=== PATIENT | male | born 1965 | race Caucasian/White ===

== ENCOUNTER 2023-05-13 05:50 | Inpatient (IN) | payer MEDICAID, SELFPAY ==
[2023-05-13] VITALS (10 sets, daily range): BP systolic 137–173; BP diastolic 79–94; PULSE 66–99; RESP 16–20; TEMP 36.6–37.9; O2SAT 97–99; BMI 25.9; BMI 25.3
--- NOTE | ~2023-05-13 | CT_ITS ---
EXAMINATION: CT ABDOMEN AND PELVIS WITH CONTRAST CLINICAL INFORMATION: 57-year-old male with severe pain. Previous right inguinal hernia repair. COMPARISON: None available. TECHNIQUE: Multidetector volumetric images were obtained from the superior aspect of the liver through the pubic symphysis following administration 85 mL of Omnipaque 350 intravenous contrast. Sagittal and coronal reformatted images were obtained on the technologist's workstation. Oral contrast: No This CT examination was performed using dose optimization techniques as appropriate, variously including the following: *Automated exposure control *Adjustment of mA and/or kV according to patient size (this includes techniques or standardized protocols for targeted exams where dose is matched to indication/reason for exam; i.e. extremities or head) *Use of iterative reconstruction technique DLP: 362 mGy-cm FINDINGS: LUNG BASES: The visualized lung bases are unremarkable. LIVER, GALLBLADDER, AND BILIARY TREE: The liver is normal in size, shape, and attenuation. No focal hepatic lesion or biliary ductal dilatation is present. The gallbladder is unremarkable with no evidence of radiopaque gallstones, gallbladder wall thickening, or obvious pericholecystic inflammatory changes. PANCREAS: Unremarkable. SPLEEN: Unremarkable. ADRENAL GLANDS: Unremarkable. KIDNEYS AND URETERS: The kidneys are normal in size, shape, and attenuation. No hydronephrosis, hydroureter, or calculi seen. No perinephric stranding. BLADDER: There is mass effect on the urinary bladder fundus large abscess. GASTROINTESTINAL TRACT: There is large abscess extending from the perforated diverticulum in sigmoid colon with mass effect on the urinary bladder fundus. The abscess measured 5.0 x 4.9 x 4.9 cm. There is extensive diverticulosis and sigmoid colon diverticulitis with wall thickening. In addition to these there are changes of small bowel disease extending from the duodenum to jejunum with dilatation of the lumen and wall thickening. The stomach is unremarkable. Appendix is not identified ABDOMINAL WALL: Patient is status post anterior abdominal wall hernia repair with mesh markers there is small fat-containing umbilical hernia. LYMPH NODES: Normal. VASCULAR: Unremarkable. PELVIC VISCERA: Prostate is enlarged, heterogeneous with dystrophic calcifications. OSSEOUS STRUCTURES: There are multilevel degenerative changes more prominent at the level of L4-L5. CT/CT abdomen pelvis w IV con IMPRESSION: 1. Sigmoid colon diverticulitis with large abscess extending from the perforated diverticulum in the sigmoid colon with mass effect on the urinary bladder fundus. 2. Small bowel disease. Fleischner guidelines were followed.
--- NOTE | ~2023-05-13 | CT_ITS ---
Patient presents to interventional radiology for percutaneous drainage of a diverticular abscess.. COMPARISON: CT abdomen and pelvis 05/13/2023 (earlier same day). PROCEDURES: 1. Limited preprocedure CT of the pelvis. Permanent images saved in PACS. 2. CT guided drainage of the diverticular abscess 3. Limited post procedure CT of the pelvis. Permanent images saved in PACS. CLINICIANS: Lucio Pineda PA-C Preprocedural imaging reviewed with Dr. James MEDICATIONS: -Versed 2 mg, Fentanyl 100 mcg, and lidocaine 1% 10 mL SQ -Antibiotics: None -For additional details, please see nursing flowsheet. COMPLICATIONS: None ESTIMATED BLOOD LOSS: < 5 ml CONTRAST: None SPECIMENS: A sample sent for culture MODERATE SEDATION TIME: 21 min PROCEDURE NOTE: The procedure, risks, benefits, and alternatives were carefully explained to the patient and written informed consent was obtained. The patient was placed supine on the CT table. A timeout was performed. A limited CT of the pelvis was performed to localize diverticular abscess and choose appropriate needle entry and trajectory. The patient was prepped and draped in usual sterile fashion. The skin and soft tissues were anesthetized with lidocaine. Under CT guidance, 5 Tamazight Yueh catheter was advanced into the midline diverticular abscess. Thick purulent pus was immediately aspirated. A 0.038 Amplatz wire was inserted through the catheter and coiled into the abscess cavity. The catheter was removed, and the tract was serially dilated. Over the wire, a 10 Tamazight all-purpose drainage catheter was advanced and coiled into the abscess cavity. The wire was removed. A total of 50 mL of thick purulent fluid was removed. A limited post procedure scan of pelvis performed, which demonstrated near decompression of the abscess cavity. The drain secured to the skin with a 2-0 nylon suture and connected to a MICHAEL bulb. A specimen was sent for culture. A dry dressing was applied to the drainage site. The patient was stable after the procedure and was transferred to the post anesthesia care unit. No immediate postprocedural complications. The procedure was done under moderate sedation with a dedicated nurse for monitoring of vital signs. CT/CT guided drainage IMPRESSION: Successful CT-guided drainage of diverticular abscess, with drain placement. This procedure was performed by Lucio Pineda PA-C and supervised by Dr. James.
[2023-05-13 06:33] LABS: Basophils Absolute Auto 0.1 X10*3/uL (0.0-0.2); Basophils Percent Auto 0.6 % (0-2); Eosinophils Absolute Auto 0.3 X10*3/uL (0.0-0.4); Eosinophils Percent Auto 1.6 % (0-4); Hematocrit 42.1 % (42.0-52.0); Hemoglobin 14.2 g/dl (14.0-18.0); Imm Gran Abs Auto 0.08 X10*3/uL (0.00-0.03); Imm Gran Pct Auto 0.5 % (0.0-0.4); Lymphocytes Absolute Auto 1.6 X10*3/uL (1.2-4.9); Lymphocytes Percent Auto 10.4 % (20-40); MANUAL DIFF FLAG NO; Mean Corpuscular HGB Conc 33.7 g/dl (31.0-36.0); Mean Platelet Volume 8.4 fL (9.4-12.4); Monocytes Absolute Auto 1.4 X10*3/uL (0.1-1.2); Monocytes Percent Auto 9.3 % (2-11); Neutrophils Percent Auto 77.6 % (45-73); Platelet Count 425 X10*3/uL (160-400); Red Blood Count 4.73 X10*6/uL (4.60-5.80); Red Cell Distribution Width 13.5 % (11.0-16.0); White Blood Count 15.5 X10*3/uL (4.8-10.8)
[2023-05-13 06:47] LABS: Alanine Aminotransferase 12 U/L (0-40); Alkaline Phosphatase 116 U/L (39-117); Anion Gap 14 (12-20); Aspartate Amino Transferase 18 U/L (5-37); Bilirubin Total 0.4 mg/dL (0.0-1.0); Blood Urea Nitrogen 10 mg/dL (9-16); Carbon Dioxide 24 mmol/L (22-29); Chloride 104 mmol/L (96-108); Creatinine Clr Calc Pharmacy 97.9; Estimated Glomerular Filt Rate > 60; Glucose Random 114 mg/dL (60-115); Potassium 4.3 mmol/L (3.3-5.1); Sodium 138 mmol/L (135-145); Total Protein 7.5 g/dL (6.5-8.0)
--- NOTE | 2023-05-13 07:01 | PC.NURSE ---
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 Simpson a hot sensation in lower abdomen that felt like muscles tearing. Reports alvarez a double hernia repair with mesh 8 years ago . Reports difficulty voiding with blood in urine and loose stools.
[2023-05-13] MEDS: 0.9 % Sodium Chloride 1,000 ML 999 ML IV ×2 (07:21→08:51)
--- NOTE | 2023-05-13 07:21 | ED_ITS ---
HPI - Abdominal Pain General Chief Complaint: Abdominal Pain Stated Complaint: bowel pain Time Seen by Provider: 05/13/23 07:02 Source: patient Mode of arrival: ambulatory Limitations: no limitations History of Present Illness HPI narrative: 57 yo male with PMH bilateral inguinal hernia repair 8 years ago notes he was helping a friend lift a snowblower onto a ramp on Tuesday - it slipped he bore the brunt of the weight and felt a searing hot pain in the R herna site. Since then the pain has worsened. He had two days of hematuria that has improved. Has nausea and now has loose stools nonbloody. He cannot get comfortable. He came due to worsening pain MD elicited complaint: abdominal pain Pertinent past history: other (hernia repair) Onset (ago): day(s) (5) Pain Consistency: constant Location: RLQ and LLQ Severity: severe Quality: cramping Radiation: none Migration to: no migration Exacerbating factors: movement Relieving factors: nothing Context: other (after heavy lifting) Associated symptoms: nausea, diarrhea and hematuria Related Data Allergies Allergy/AdvReac Type Severity Reaction Status Date / Time codeine [CODEINE] Allergy Unknown NAUSEA & Unverified 01/10/20 15:07 VOMITING penicillin V Allergy Unknown Verified 12/23/15 00:00 Penicillins [PENICILLINS] Allergy Unknown HIVES Unverified 01/10/20 15:07 trazodone Allergy Unknown Verified 12/23/15 00:00 Codeine Sulfate Allergy Unknown Uncoded 12/23/15 00:00 Review of Systems Review of Systems Constitutional : No Weight loss, No Fever, No Chills ENT/Mouth : No sore throat, No Rhinorrhea Eyes: No Swelling, No Redness Cardiovascular : No Chest Pain, No SOB, NoEdema Respiratory : No Cough, No Sputum, No Wheezing Gastrointestinal : Positive Nausea, no Vomiting, positive Diarrhea, positive abdominal Pain, No Hematochezia, No Melena Genitourinary : pos Dysuria, No Urinary Frequency, No Hematuria, No Urgency Musculoskeletal : No joint pain, No Myalgias, No Joint Swelling Skin : No Skin Lesions, No rash Neuro : No Weakness, No Numbness, No Dizziness, No Headache Psych : No Anxiety/Panic, No Depression Heme/Lymph: No Bruising, No Lymphadenopathy Endocrine : No Polyuria, No Polydipsia All other systems reviewed and are negative. [facility] Past Medical History Attestation statement: The following information was validated with the patient. Onset Date is defined in the Problem List Problems that require an onset date and time if occurred within 24 hrs of arrival to the ED Aortic Dissection and Rupture; Neurologic impairment; Cardiopulmonary Arrest; Endotracheal Intubation; Insertion or Replacement of Mechanical Circulatory Assist Device Medical History (Updated 05/13/23 @ 08:39 by Dacia Peters DO) No pertinent past medical history Surgical History (Updated 05/13/23 @ 07:23 by Dacia Peters DO) H/O hernia repair Social History Social History Alcohol intake: current Alcohol intake frequency: 0-2 drinks per day Smoked in Last 30 Days: Yes Use of substances other than those prescribed or required for medical reasons: Yes Substance Use Type: Marijuana Advance Directives: No Advance Directives Information Provided: No Physical Exam ED Vital Signs: Vital Signs - 24 hr 05/13/23 05:58 05/13/23 07:00 05/13/23 07:24 Temperature 98.2 F Pulse Rate 86 99 Respiratory Rate 16 18 20 Blood Pressure 140/87 H 137/86 Pulse Oximetry 97 99 Oxygen Delivery Method Room Air Room Air 05/13/23 08:00 Temperature Pulse Rate 67 Respiratory Rate 18 Blood Pressure 173/87 H Pulse Oximetry 97 Oxygen Delivery Method Room Air BMI result Body Mass Index 25.9 Appearance: Alert. Oriented X3. No acute distress. Eyes: Pupils equal, round and reactive to light. ENT: Pharynx normal. Neck: Normal inspection. Neck supple. CVS: Normal heart rate and rhythm. Pulses normal. Respiratory: No respiratory distress. Breath sounds normal. Abdomen: Soft and moderate ttp in bilateral groins R>L no mass felt he has rebound on exam Skin: Skin warm and dry. Normal skin color. Normal skin turgor. Extremities: No lower extremity edema. No calf ttp Neuro: Oriented X 3. No motor deficit. No sensory deficit. Course Course Course Narrative: at this time infection suspected 825am - cultures, lactic acid, IV antibiotics ordered Reevaluation(s) Reevaluation #1: pain is improved with IV morphine Medical Decision Making Medical Decision Making MDM Narrative: 57 yo male with bilateral groin pain R> L with after heavy lifting known hernia repair - he has associated nausea diarrhea and resolved hematuria. At this time will need labs, IV morphine for pain, CT scan for hernia/hematoma/renal colic, diverticulitis, bladder injury. Differential Diagnosis Differential Diagnoses: The differential diagnosis associated with the presentation includes hematoma, mass, renal colic, diverticulitis, rupture, mesh tear Admission/Observation Consideration of admission/observation: Escalation of care including admission/observation considered will need admission for further management Consult Healthcare Provider Management of the patient was discussed with: Legal Support Assistant (Dr. Sherman notified 830am) Dr. Sherman to admit Lab Data [facility] Lab Attestation statement: I reviewed the patient's lab results. 05/13/23 06:29 05/13/23 06:29 Labs: Lab Results 05/13/23 Range/Units 06:29 WBC 15.5 H (4.8-10.8) X10*3/uL RBC 4.73 (4.60-5.80) X10*6/uL Hgb 14.2 (14.0-18.0) g/dl Hct 42.1 (42.0-52.0) % MCV 89.0 (80.0-98.0) fL MCH 30.0 (27.0-33.0) pg MCHC 33.7 (31.0-36.0) g/dl RDW 13.5 (11.0-16.0) % Plt Count 425 H (160-400) X10*3/uL MPV 8.4 L (9.4-12.4) fL Immature Gran % (Auto) 0.5 H (0.0-0.4) % Neut % (Auto) 77.6 H (45-73) % Lymph % (Auto) 10.4 L (20-40) % [place] % (Auto) 9.3 (2-11) % Eos % (Auto) 1.6 (0-4) % Baso % (Auto) 0.6 (0-2) % Lymph # (Auto) 1.6 (1.2-4.9) X10*3/uL [place] # (Auto) 1.4 H (0.1-1.2) X10*3/uL Eos # (Auto) 0.3 (0.0-0.4) X10*3/uL Baso # (Auto) 0.1 (0.0-0.2) X10*3/uL Abs Immat Gran (auto) 0.08 H (0.00-0.03) X10*3/uL Absolute Neuts (auto) 12.0 H (2.0-8.3) x10*3/uL Absolute Nucleated RBC 0.000 (0.0-0.012) X10*3/uL Nucleated RBC % (auto) 0.0 (0.0-0.2) /100WBC Sodium 138 (135-145) mmol/L Potassium 4.3 (3.3-5.1) mmol/L Chloride 104 (96-108) mmol/L Carbon Dioxide 24 (22-29) mmol/L Anion Gap 14 (12-20) BUN 10 (9-16) mg/dL Creatinine 0.76 (0.5-1.4) mg/dL Estim Creat Clear Calc 97.9 Estimated GFR > 60 Random Glucose 114 (60-115) mg/dL Calcium 10.0 (8.4-10.2) mg/dL Total Bilirubin 0.4 (0.0-1.0) mg/dL AST 18 (5-37) U/L ALT 12 (0-40) U/L Alkaline Phosphatase 116 (39-117) U/L Total Protein 7.5 (6.5-8.0) g/dL Albumin 4.0 (3.5-5.0) g/dL Independent Interpretation I performed an independent interpretation of an: CT Scan Radiology Impression Discussion of test interpretation with radiology: I have reviewed the radiologist's reading. Radiologist Impression: sigmoid colon urinary bladder - 5cm large abscess extensive diverticulitis ? SB is abnormal thickened at duodenum and jejunum junction perforation - contained Medications Administered Discontinued Medications Generic Name Dose Route Start Last Admin Trade Name Freq PRN Reason Stop Dose Admin Sodium Chloride 1,000 mls @ 999 mls/hr 05/13/23 07:15 05/13/23 08:46 Ns IV 05/13/23 08:15 Infused .Q1H1M YULISSA Infusion Iohexol 85 ml 05/13/23 07:44 05/13/23 07:45 Iohexol 350 Mg/Ml 100 Ml Infus..Btl IV 05/13/23 07:45 85 ml ONCE ONE Administration Morphine Sulfate 4 mg 05/13/23 07:09 05/13/23 07:24 Morphine Sulfate 4 Mg/Ml Cartridge IVPUSH 05/13/23 07:10 4 mg ONCE ONE Administration Protocol Ondansetron HCl 4 mg 05/13/23 07:09 05/13/23 07:24 Ondansetron Hcl 4 Mg/2 Ml Vial IVPUSH 05/13/23 07:10 4 mg ONCE ONE Administration Critical Care Time Critical Care Time Critical Care Time: Yes Total Critical Care Time: 60 Attestation: 2L of IVF, pain improved with IV morphine, surgical consultation I attest to this time spent taking care of the patient Discharge Plan Discharge Clinical Impression: Abdominal pain Qualifiers: Abdominal location: lower abdomen, unspecified Qualified Code(s): R10.30 - Lower abdominal pain, unspecified Diverticulitis of intestine with abscess Qualifiers: Diverticulitis site: large intestine Diverticulitis bleeding: without bleeding Qualified Code(s): K57.20 - Diverticulitis of large intestine with perforation and abscess without bleeding Elevated WBC count Qualifiers: Leukocytosis type: unspecified Qualified Code(s): D72.829 - Elevated white blood cell count, unspecified Patient Disposition: Admitted As Inpatient
[2023-05-13] MEDS: Morphine Sulfate 4 MG/ML CARTRIDGE IVPUSH (07:24)
[2023-05-13] MEDS: ondansetron HCL 4 MG/2 ML VIAL IVPUSH (07:24)
[2023-05-13] MEDS: iohexoL 350 MG/ML 100 ML INFUS..BTL 85 ML IV (07:45)
[2023-05-13] MEDS: metroNIDAZOLE/NS 500 MG/100 ML PIGGYBACK 100 MG IV ×2 (08:52→16:52)
[2023-05-13] MEDS: HYDROmorphone HCl 0.5 MG/0.5 ML SYRINGE IVPUSH (08:52)
[2023-05-13] MEDS: cefTRIAXone sodium 1 GM in 0.9 % Sodium Chloride 50 ML IV (08:52)
[2023-05-13 08:56] LABS: Appearance Urine Clear; Color Urine Yellow; Glucose Urine UA Negative (Negative); Leukocyte Esterase Urine Small (1+) (Negative); Nitrite Urine Negative (Negative); UMIC TRIGGER UACC YES; Urine Blood Negative (Negative); Urine Ketones 15 mg/dL (Negative); Urine Protein Negative (Neg-Trace)
--- NOTE | 2023-05-13 08:58 | P.HPGS_ITS ---
History of Present Illness History of Present Illness Date of Service: 05/13/23 <Hyun Naylor PA-C - Last Filed: 05/13/23 09:38> 05/13/23 <Victoriano Sherman MD - Last Filed: 05/13/23 10:06> Chief complaint: diverticular abscess <Hyun Naylor PA-C - Last Filed: 05/13/23 09:38> Narrative: Lucio Manzano is a 57 year old male with no significant PMH who was in his usual state of health until he developed severe lower abd pain on Tuesday following lifting a snowblower onto a ramp. The pain has gradually worsened and is associated with nausea without vomiting, diarrhea and hematuria which has resolved. The pain has been progressively worsening and he could not sleep last night and decided to come in for evaluation. He denies sick contacts. In ED, work up included CBC, BMP and LFTs which was significant for a leukocytosis of 15.[address] scan of abd/pelvis was performed which showed sigmoid colon d iverticulitis with large abscess extending from the perforated diverticulum in the sigmoid colon with mass effect on the urinary bladder fundus. General surgery was therefore consulted. He reports hx of b/l hernia repair. He had a colonoscopy in 2009 which showed mild diverticulosis and hemorrhoids. <Hyun Naylor PA-C - Last Filed: 05/13/23 09:38> Review of Systems Constitutional: Constitutional: Denies chills and Denies fever(s) <Hyun Naylor PA-C - Last Filed: 05/13/23 09:38> ENT: Denies dizziness <Hyun Naylor PA-C - Last Filed: 05/13/23 09:38> Cardiovascular: Cardiovascular: Denies chest pain and Denies dyspnea <Hyun Naylor PA-C - Last Filed: 05/13/23 09:38> Respiratory: Respiratory: Denies cough and Denies dyspnea <DAMON Loredo Last Filed: 05/13/23 09:38> Gastrointestinal: Gastrointestinal: Reports as per HPI and Denies hematochezia <DAMON Loredo Last Filed: 05/13/23 09:38> Genitourinary: Genitourinary: Reports as per HPI <Hyun Naylor PA-C Last Filed: 05/13/23 09:38> Integumentary/Breasts: Skin/Breast: Denies rash and Denies jaundice <Hyun Naylor PA-C Last Filed: 05/13/23 09:38> Neurologic: Denies dizziness <Hyun Naylor PA-C Last Filed: 05/13/23 09:38> PMFSH Past Medical History Medical History: Medical History (Updated 05/13/23 @ 08:39 by Dacia Peters DO) No pertinent past medical history <Hyun Naylor PA-C Last Filed: 05/13/23 09:38> Surgical History Surgical History: Surgical History (Updated 05/13/23 @ 07:23 by Dacia Peters DO) H/O hernia repair <DAMON Loredo Filed: 05/13/23 09:38> Social History Social History: Social History Alcohol intake: current Alcohol intake frequency: 0-2 drinks per day Smoked in Last 30 Days: Yes Use of substances other than those prescribed or required for medical reasons: Yes Substance Use Type: Marijuana Advance Directives: No Advance Directives Information Provided: No <Hyun Naylor PA-C Last Filed: 05/13/23 09:38> Meds Allergies/Adverse reactions: Allergies Allergy/AdvReac Type Severity Reaction Status Date / Time codeine [CODEINE] Allergy Unknown NAUSEA & Verified 05/13/23 09:27 VOMITING penicillin V Allergy Unknown Unknown Verified 05/13/23 09:16 Penicillins [PENICILLINS] Allergy Unknown HIVES Verified 05/13/23 09:27 trazodone Allergy Unknown Unknown Verified 05/13/23 09:16 Codeine Sulfate Allergy Unknown Unknown Uncoded 05/13/23 09:16 <Hyun Naylor PA-C Last Filed: 05/13/23 09:38> Active Medications: Current Medications Hydromorphone HCl (Hydromorphone Hcl 1 Mg/Ml Syringe) 0.5 mg IVPUSH Q4H PRN; Protocol PRN Reason: Pain, Severe (Pain Scale 7-10) Metronidazole (Flagyl) 500 mg in 100 mls @ 100 mls/hr IV ONCE ONE Stop: 05/13/23 09:25 Last Admin: 05/13/23 08:52 Dose: 100 mls/hr Sodium Chloride (Ns) 1,000 mls @ 999 mls/hr IV .Q1H1M YULISSA Stop: 05/13/23 09:30 Last Admin: 05/13/23 08:51 Dose: 999 mls/hr Metronidazole (Flagyl) 500 mg in 100 mls @ 100 mls/hr IV Q8H YULISSA Melatonin (Melatonin 3 Mg Tablet) 6 mg PO BEDTIME PRN PRN Reason: Insomnia Ondansetron HCl (Ondansetron Hcl 4 Mg/2 Ml Vial) 4 mg IVPUSH Q8H PRN PRN Reason: Nausea and Vomiting Oxycodone HCl (Oxycodone Hcl Immed Release 5 Mg Tablet) 5 mg PO Q6H PRN PRN Reason: Pain, Moderate(Pain Scale 4-6) Sodium Chloride (0.9 % Sodium Chloride Flush 3 Ml Syringe) 3 ml IVFLUSH QSHIFT YULISSA <DAMON Loredo Last Filed: 05/13/23 09:38> Physical Exam Vital Signs: Vital Signs: Last Vital Signs Temp 98.2 F 05/13/23 05:58 Pulse 67 05/13/23 08:00 Resp 18 05/13/23 08:00 BP 173/87 H 05/13/23 08:00 Pulse Ox 97 05/13/23 08:00 O2 Del Method Room Air 05/13/23 08:00 BMI result Body Mass Index 25.9 <DAMON Loredo Last Filed: 05/13/23 09:38> Const: General: comfortable, no acute distress and alert <DAMON Loredo Last Filed: 05/13/23 09:38> Nutritional Appearance: thin <DAMON Loredo Last Filed: 05/13/23 09:38> Orientation/consciousness: patient oriented x3 <DAMON Loredo Last Filed: 05/13/23 09:38> Resp: Effort & Inspection: normal respiratory effort <DAMON Loredo Last Filed: 05/13/23 09:38> GI: Inspection: No distended <DAMON Loredo Last Filed: 05/13/23 09:38> Palpation (GI): Soft to palpation, Tenderness to palpation present (GI) (moderately) suprapubicly (with rebound ), no guarding and not rigid <DAMON Nova Last Filed: 05/13/23 09:38> Percussion: Yes normal to percussion <DAMON Loredo Last Filed: 05/13/23 09:38> Skin: General skin exam: no rashes or lesions noted <DAMON Loredo Last Filed: 05/13/23 09:38> Neuro: General: patient oriented x3 and moves all extremities <DAMON Loredo Last Filed: 05/13/23 09:38> Results Results Labs: Short CBC 05/13/23 Range/Units 06:29 WBC 15.5 H (4.8-10.8) X10*3/uL Hgb 14.2 (14.0-18.0) g/dl Hct 42.1 (42.0-52.0) % Plt Count 425 H (160-400) X10*3/uL BMP 05/13/23 06:29 Sodium 138 Potassium 4.3 Chloride 104 Carbon Dioxide 24 BUN 10 Creatinine 0.76 Calcium 10.0 Liver Function 05/13/23 Range/Units 06:29 Total Bilirubin 0.4 (0.0-1.0) mg/dL AST 18 (5-37) U/L ALT 12 (0-40) U/L Alkaline Phosphatase 116 (39-117) U/L Albumin 4.0 (3.5-5.0) g/dL Urine 05/13/23 Range/Units 08:42 Urine Color Yellow Urine Appearance Clear Urine pH 7.0 (5.0-9.0) Ur Specific [place] 1.020 (1.005-1.025) Urine Protein Negative (Neg-Trace) mg/dL Urine Glucose (UA) Negative (Negative) mg/dL <DAMON Loredo Last Filed: 05/13/23 09:38> Abdomen CT scan report/results: report reviewed and image reviewed <Hyun Naylor PA-C - Last Filed: 05/13/23 09:38> Assessment and Plan (1) Diverticulitis of intestine with abscess: Qualifiers: Diverticulitis bleeding: without bleeding Diverticulitis site: large intestine Qualified Code(s): K57.20 - Diverticulitis of large intestine with perforation and abscess without bleeding <BETTINA Loredo - Last Filed: 05/13/23 09:38> Status: Acute <Hyun Naylor PA-C - Last Filed: 05/13/23 09:38> The patient describes lower abdominal pain for about 4 days Mildly tender to touch No guarding or rebound Looks well, not toxic looking CT scan reviewed - diverticular abscess in the pelvis For IR drainage Possible need for laparotomy, resection IV antibiotics Bowel rest for now Seen and examined independently <Victoriano Sherman MD - Last Filed: 05/13/23 10:06> 57 year old healthy male with almost 1 week of lower abdominal pain found to have leukocytosis and large diverticular abscess. He is overall well and non toxic appearing. Recommended nonoperative management and to proceed with IR drainage, IV abx, bowel rest. Discussed if abscess is not amenable to IR drainage or he worsens, would need to proceed with laparotomy, sigmoid resection, likely end colostomy. He is in agreement. All questions answered. <Hyun Naylor PA-C - Last Filed: 05/13/23 09:38> Quality Stroke Does the patient have a stroke diagnosis?: No <Hyun Naylor PA-C - Last Filed: 05/13/23 09:38> VTE Prior VTE?: No <Hyun Naylor PA-C - Last Filed: 05/13/23 09:38> VTE Risk Level:: Surgical - moderate <DAMON Loredo Last Filed: 05/13/23 09:38> VTE Device Contraindication: N/A - Device Ordered <DAMON Loredo Last Filed: 05/13/23 09:38> VTE Drug Contraindication: N/A - Med Ordered <Hyun Naylor PA-C - Last Filed: 05/13/23 09:38> Procedures Date of Service Date of Service: 05/13/23 <Hyun Naylor PA-C - Last Filed: 05/13/23 09:38> 05/13/23 <Victoriano Sherman MD - Last Filed: 05/13/23 10:06>
[2023-05-13 08:59] LABS: Lactic Acid 1.1 mmol/L (0.5-2.0)
[2023-05-13 09:01] LABS: Bacteria Urine None Seen (None Seen); Hyaline Casts Urine 0-2 /LPF (0-2); RBC Urine 0-2 /HPF (0-2); Squamous Epithelial Cell Urine 0-2 /HPF (0-2); UACC Culture Trigger YES
[2023-05-13 09:05] LABS: INTERNATIONAL NORM RATIO 0.9 (0.9-1.1); Prothrombin Time 11.3 SEC (11.1-13.3)
[2023-05-13] MEDS: Nicotine 21 MG PATCH.TD24 TRANSDERMA (09:14)
[2023-05-13] MEDS: oxyCODONE HCl Immed Release 5 MG TABLET PO ×2 (09:36→19:16)
[2023-05-13] MEDS: Lactated Ringers 1,000 ML 100 ML IVCONT ×2 (09:43→14:49)
[2023-05-13] MEDS: levoFLOXacin/D5W 500 MG/100 ML PIGGYBACK 100 MG IV (10:33)
--- NOTE | 2023-05-13 12:43 | PC.NURSE ---
Brought to OR by transport
--- NOTE | 2023-05-13 12:57 | PHA.MEDREC ---
Pharmacy Consult ? Medication Reconciliation Pharmacy has completed the medication reconciliation.
--- NOTE | 2023-05-13 13:49 | HO.RADPN ---
RADIOLOGY Narrative Narrative: Procedure Note: CT drainage of diverticular abscess 10 fr drain placed. 50 cc thick purulent fluid removed and sent for culture. No immediate complications. Lucio MYERS Interventional Radiology
[2023-05-13] MEDS: HYDROmorphone HCl 1 MG/ML SYRINGE 0.5 MG IVPUSH (14:57)
--- NOTE | 2023-05-13 17:36 | PM.EVENT ---
Event Note Date of Service: 05/13/23 Event Note: successful CT drainage of diverticular abscess done pt comfortable drain in place - seropurulent fluid abd soft he looks well IV abx doing well Time Spent With Patient Time: Total time managing care of this patient today ____ minutes.
[2023-05-13] MEDS: Acetaminophen 325 MG TABLET 650 MG PO (20:02)
[2023-05-14] MEDS: Lactated Ringers 1,000 ML 100 ML IVCONT ×2 (01:19→14:58)
[2023-05-14] MEDS: metroNIDAZOLE/NS 500 MG/100 ML PIGGYBACK 100 MG IV ×3 (01:21→17:19)
[2023-05-14 01:29] VITALS: RESP 18
[2023-05-14] MEDS: HYDROmorphone HCl 1 MG/ML SYRINGE 0.5 MG IVPUSH ×4 (01:29→17:19)
[2023-05-14 03:08] VITALS: BP 140/75; PULSE 61; RESP 16; TEMP 36.3; O2SAT 98
[2023-05-14 05:45] LABS: MANUAL DIFF FLAG NO
[2023-05-14 05:53] LABS: Basophils Absolute Auto 0.1 X10*3/uL (0.0-0.2); Basophils Percent Auto 0.7 % (0-2); Eosinophils Absolute Auto 0.4 X10*3/uL (0.0-0.4); Eosinophils Percent Auto 3.3 % (0-4); Hematocrit 39.5 % (42.0-52.0); Hemoglobin 13.4 g/dl (14.0-18.0); Imm Gran Abs Auto 0.04 X10*3/uL (0.00-0.03); Imm Gran Pct Auto 0.3 % (0.0-0.4); Lymphocytes Absolute Auto 1.3 X10*3/uL (1.2-4.9); Lymphocytes Percent Auto 10.3 % (20-40); Mean Corpuscular HGB Conc 33.9 g/dl (31.0-36.0); Mean Corpuscular Volume 88.6 fL (80.0-98.0); Mean Platelet Volume 8.7 fL (9.4-12.4); Monocytes Percent Auto 8.2 % (2-11); Neutrophils Absolute Auto 9.4 x10*3/uL (2.0-8.3); Neutrophils Percent Auto 77.2 % (45-73); Platelet Count 379 X10*3/uL (160-400); Red Blood Count 4.46 X10*6/uL (4.60-5.80); Red Cell Distribution Width 13.2 % (11.0-16.0); White Blood Count 12.2 X10*3/uL (4.8-10.8)
[2023-05-14 06:05] LABS: Anion Gap 15 (12-20); Blood Urea Nitrogen 6 mg/dL (9-16); Calcium 9.1 mg/dL (8.4-10.2); Carbon Dioxide 21 mmol/L (22-29); Chloride 105 mmol/L (96-108); Estimated Glomerular Filt Rate > 60; Glucose Random 87 mg/dL (60-115); Potassium 3.8 mmol/L (3.3-5.1); Sodium 137 mmol/L (135-145)
[2023-05-14 08:00] VITALS: BP 142/77; PULSE 71; RESP 17; TEMP 36.8; O2SAT 98
[2023-05-14] MEDS: 0.9 % Sodium Chloride Flush 3 ML SYRINGE IVFLUSH ×3 (08:43→19:54)
--- NOTE | 2023-05-14 09:17 | PM.PNGS ---
Subjective Subjective Date of Service: 05/14/23 Interval history: sore on drain site low grade temp last night drain- mostly thick blood now Physical Exam Vital Signs: Vital Signs: Last Vital Signs Temp 98.3 F 05/14/23 08:00 Pulse 71 05/14/23 08:00 Resp 17 05/14/23 08:00 BP 142/77 H 05/14/23 08:00 Pulse Ox 98 05/14/23 08:00 O2 Del Method Room Air 05/14/23 08:00 BMI result Body Mass Index 25.3 Const: General: no acute distress Resp: Effort & Inspection: normal respiratory effort Cardio: Rate: regular rate GI: Palpation (GI): Soft to palpation and Tenderness to palpation present (GI) (tender around drain, pelvic area) Objective Data Active Medications Acetaminophen (Acetaminophen 325 Mg Tablet) 650 mg PO Q6H PRN PRN Reason: Fever Last Admin: 05/13/23 20:02 Dose: 650 mg Documented By: JEREMY Hydromorphone HCl (Hydromorphone Hcl 1 Mg/Ml Syringe) 0.5 mg IVPUSH Q4H PRN; Protocol PRN Reason: Pain, Severe (Pain Scale 7-10) Last Admin: 05/14/23 08:37 Dose: 0.5 mg Documented By: CHASE Metronidazole (Flagyl) 500 mg in 100 mls @ 100 mls/hr IV Q8H [facility] Last Admin: 05/14/23 08:38 Dose: 100 mls/hr Documented By: CHASE Levofloxacin (Levaquin) 500 mg in 100 mls @ 100 mls/hr IV Q24H [facility] Last Infusion: 05/13/23 10:35 Dose: Infused Documented By: GLENNY Lactated Ringer's (Lr) 1,000 mls @ 100 mls/hr IVCONT .Q10H [facility] Last Admin: 05/14/23 01:19 Dose: 100 mls/hr Documented By: JEREMY Influenza Virus Vaccine (Flu Vacc [id number](6mos Up)/Pf 0.5 Ml Syringe) 0.5 ml IM .ONCE ONE Stop: 05/14/23 10:01 Melatonin (Melatonin 3 Mg Tablet) 6 mg PO BEDTIME PRN PRN Reason: Insomnia Ondansetron HCl (Ondansetron Hcl 4 Mg/2 Ml Vial) 4 mg IVPUSH Q8H PRN PRN Reason: Nausea and Vomiting Oxycodone HCl (Oxycodone Hcl Immed Release 5 Mg Tablet) 5 mg PO Q6H PRN PRN Reason: Pain, Moderate(Pain Scale 4-6) Last Admin: 05/13/23 19:16 Dose: 5 mg Documented By: JEREMY Sodium Chloride (0.9 % Sodium Chloride Flush 3 Ml Syringe) [facility] Last Admin: 05/14/23 08:43 Dose: 3 ml Documented By: CHASE Labs 05/14/23 05:23 05/14/23 05:23 Labs: Laboratory Results - last 24 hr 05/14/23 05:23 MCV 88.6 MCH 30.0 MCHC 33.9 RDW 13.2 Plt Count 379 MPV 8.7 L Immature Gran % (Auto) 0.3 Neut % (Auto) 77.2 H Lymph % (Auto) 10.3 L [place] % (Auto) 8.2 Eos % (Auto) 3.3 Baso % (Auto) 0.7 Lymph # (Auto) 1.3 [place] # (Auto) 1.0 Eos # (Auto) 0.4 Baso # (Auto) 0.1 Abs Immat Gran (auto) 0.04 H Absolute Neuts (auto) 9.4 H Absolute Nucleated RBC 0.000 Nucleated RBC % (auto) 0.0 Anion Gap 15 Estim Creat Clear Calc 124.0 Estimated GFR > 60 Random Glucose 87 Calcium 9.1 D Microbiology Microbiology Results: Microbiology 05/13/23 13:40 Gram Stain - Final Abscess Intra-abdominal Procedures Date of Service Date of Service: 05/14/23 Progress Note: A&P Assessment and plan (1) Diverticulitis of intestine with abscess: Status: Acute Assessment and Plan: S/P CT drain WBC down drain output now mostly thick blood IV abx clear liquids only explained to him he will eventually benefit from surgical resection depending on clinical course Time Spent With Patient Time: Total time managing care of this patient today ____ minutes. Quality Stroke Does the patient have a stroke diagnosis?: No VTE Prior VTE?: No VTE Risk Level:: Surgical - moderate VTE Device Contraindication: N/A - Device Ordered VTE Drug Contraindication: N/A - Med Ordered
[2023-05-14] MEDS: levoFLOXacin/D5W 500 MG/100 ML PIGGYBACK 100 MG IV (09:55)
[2023-05-14] MEDS: oxyCODONE HCl Immed Release 5 MG TABLET PO ×2 (09:55→19:52)
--- NOTE | 2023-05-14 10:11 | MHC.CM.PN ---
PATIENT IS FROM HOME W/ GIRLFRIEND. FUNCTIONALLY INDEPENDENT. NO MEDICAL EQUIPMENT OR SERVICES. DOES NOT HAVE A PCP. CM PROVIDED EDUCATION RE: HCP. PATIENT IS CONSIDERING COMPLETING ONE, BUT WOULD LIKE TO SPEAK WITH HIS GIRLFRIEND, CORINNE . DP: GOAL IS HOME SELF CARE. CORINNE TO TRANSPORT. CM WILL CONTINUE TO FOLLOW.
[2023-05-14] MEDS: Nicotine 7 MG PATCH.TD24 TRANSDERMA (12:05)
[2023-05-14 16:00] VITALS: BP 138/80; PULSE 69; RESP 18; TEMP 36.7; O2SAT 98
[2023-05-14 19:43] VITALS: BP 136/84; PULSE 67; RESP 19; TEMP 36.7; O2SAT 98
[2023-05-14] MEDS: Acetaminophen 325 MG TABLET 650 MG PO (19:52)
[2023-05-15] MEDS: Lactated Ringers 1,000 ML 100 ML IVCONT (01:04)
[2023-05-15] MEDS: metroNIDAZOLE/NS 500 MG/100 ML PIGGYBACK 100 MG IV ×3 (01:04→16:41)
[2023-05-15 03:09] VITALS: BP 131/79; PULSE 65; RESP 16; TEMP 36.5; O2SAT 96
[2023-05-15] MEDS: oxyCODONE HCl Immed Release 5 MG TABLET PO ×3 (06:41→19:31)
[2023-05-15 07:51] VITALS: BP 141/76; PULSE 68; RESP 16; TEMP 36.7; O2SAT 96
[2023-05-15] MEDS: Nicotine 7 MG PATCH.TD24 TRANSDERMA (08:06)
[2023-05-15] MEDS: 0.9 % Sodium Chloride Flush 3 ML SYRINGE IVFLUSH ×2 (08:07→16:45)
--- NOTE | 2023-05-15 09:53 | PM.PNGS ---
Subjective Subjective Date of Service: 05/15/23 Interval history: feels well a little sore on drain site hungry Physical Exam Vital Signs: Vital Signs: Last Vital Signs Temp 98.1 F 05/15/23 07:51 Pulse 68 05/15/23 07:51 Resp 16 05/15/23 07:51 BP 141/76 H 05/15/23 07:51 Pulse Ox 96 05/15/23 07:51 O2 Del Method Room Air 05/15/23 07:51 BMI result Body Mass Index 25.3 Const: General: comfortable and no acute distress Resp: Effort & Inspection: normal respiratory effort Cardio: Rate: regular rate GI: Other: MICHAEL - scanty old blood Palpation (GI): Soft to palpation, not firm, nontender and no guarding Objective Data Active Medications Acetaminophen (Acetaminophen 325 Mg Tablet) 650 mg PO Q6H PRN PRN Reason: Fever Last Admin: 05/14/23 19:52 Dose: 650 mg Documented By: JEREMY Hydromorphone HCl (Hydromorphone Hcl 1 Mg/Ml Syringe) 0.5 mg IVPUSH Q4H PRN; Protocol PRN Reason: Pain, Severe (Pain Scale 7-10) Last Admin: 05/14/23 17:19 Dose: 0.5 mg Documented By: CHASE Metronidazole (Flagyl) 500 mg in 100 mls @ 100 mls/hr IV Q8H [facility] Last Admin: 05/15/23 08:06 Dose: 100 mls/hr Documented By: CHASE Levofloxacin (Levaquin) 500 mg in 100 mls @ 100 mls/hr IV Q24H [facility] Last Infusion: 05/14/23 11:09 Dose: Infused Documented By: CHASE Melatonin (Melatonin 3 Mg Tablet) 6 mg PO BEDTIME PRN PRN Reason: Insomnia Nicotine (Nicotine 7 Mg Patch.Td24) 7 mg TRANSDERMA DAILY [facility] Last Admin: 05/15/23 08:06 Dose: 7 mg Documented By: CHASE Ondansetron HCl (Ondansetron Hcl 4 Mg/2 Ml Vial) 4 mg IVPUSH Q8H PRN PRN Reason: Nausea and Vomiting Oxycodone HCl (Oxycodone Hcl Immed Release 5 Mg Tablet) 5 mg PO Q6H PRN PRN Reason: Pain, Moderate(Pain Scale 4-6) Last Admin: 05/15/23 06:41 Dose: 5 mg Documented By: JEREMY Sodium Chloride (0.9 % Sodium Chloride Flush 3 Ml Syringe) 3 ml IVFLUSH [facility] Last Admin: 05/15/23 08:07 Dose: 3 ml Documented By: CHASE Labs 05/14/23 05:23 05/14/23 05:23 Microbiology Microbiology Results: Microbiology 05/13/23 13:40 Gram Stain - Final Abscess Intra-abdominal Routine Culture - Final Escherichia coli Anaerobic Culture - Preliminary Culture in progress. 05/13/23 Unknown Urine Culture - Final Urine clean catch - Urine saxena top 05/13/23 08:42 Blood Culture - Preliminary Blood - Venous No growth after 24 hours. 05/13/23 08:44 Blood Culture - Preliminary Blood - Venous No growth after 24 hours. Procedures Date of Service Date of Service: 05/15/23 Progress Note: A&P Assessment and plan (1) Diverticulitis of intestine with abscess: Status: Acute Assessment and Plan: CT drain in place looks well appears comfortable start clear liquids continue IV abx last colonoscopy on EHR was in 2009 - with Dr Taylor Time Spent With Patient Time: Total time managing care of this patient today ____ minutes. Quality Stroke Does the patient have a stroke diagnosis?: No VTE Prior VTE?: No VTE Risk Level:: Surgical - moderate VTE Device Contraindication: N/A - Device Ordered VTE Drug Contraindication: N/A - Med Ordered
[2023-05-15] MEDS: levoFLOXacin/D5W 500 MG/100 ML PIGGYBACK 100 MG IV (10:10)
[2023-05-15 15:42] VITALS: BP 148/76; PULSE 66; RESP 17; TEMP 36.8; O2SAT 98
[2023-05-15] MEDS: Dextrose 5 % and 0.9 % NaCl 1,000 ML 80 ML IVCONT (18:16)
[2023-05-15 19:21] VITALS: BP 158/77; PULSE 69; RESP 16; TEMP 37.1; O2SAT 98
[2023-05-16] MEDS: metroNIDAZOLE/NS 500 MG/100 ML PIGGYBACK 100 MG IV ×3 (01:07→17:34)
[2023-05-16] MEDS: oxyCODONE HCl Immed Release 5 MG TABLET PO ×4 (01:56→21:41)
[2023-05-16 03:37] VITALS: BP 135/67; PULSE 64; RESP 18; TEMP 37.1; O2SAT 96
[2023-05-16] MEDS: Dextrose 5 % and 0.9 % NaCl 1,000 ML 80 ML IVCONT (06:25)
--- NOTE | 2023-05-16 06:45 | PC.NURSE ---
MICHAEL DRAIN WITH 5ML BLOODY OUTPUT FROM 11PM-7AM SHIFT, DRESSING C-D-I, SPLINTING FOR COMFORT
[2023-05-16 07:50] VITALS: BP 139/73; PULSE 62; RESP 17; TEMP 36.3; O2SAT 98
[2023-05-16] MEDS: Nicotine 7 MG PATCH.TD24 TRANSDERMA (08:35)
[2023-05-16] MEDS: 0.9 % Sodium Chloride Flush 3 ML SYRINGE IVFLUSH (08:36)
[2023-05-16] MEDS: levoFLOXacin/D5W 500 MG/100 ML PIGGYBACK 100 MG IV (09:50)
--- NOTE | 2023-05-16 12:58 | PM.PNGS ---
Subjective Subjective Date of Service: 05/16/23 Interval history: feels well denies abdl pain slept well hungry Physical Exam Vital Signs: Vital Signs: Last Vital Signs Temp 97.3 F 05/16/23 07:50 Pulse 62 05/16/23 07:50 Resp 17 05/16/23 07:50 BP 139/73 05/16/23 07:50 Pulse Ox 98 05/16/23 07:50 O2 Del Method Room Air 05/16/23 07:50 BMI result Body Mass Index 25.3 Const: General: comfortable and no acute distress Resp: Effort & Inspection: normal respiratory effort Cardio: Rate: regular rate GI: Other: MICHAEL- old blood, no more pus Palpation (GI): Soft to palpation, not firm and no guarding Objective Data Active Medications Acetaminophen (Acetaminophen 325 Mg Tablet) 650 mg PO Q6H PRN PRN Reason: Fever Last Admin: 05/14/23 19:52 Dose: 650 mg Documented By: JEREMY Hydromorphone HCl (Hydromorphone Hcl 1 Mg/Ml Syringe) 0.5 mg IVPUSH Q4H PRN; Protocol PRN Reason: Pain, Severe (Pain Scale 7-10) Last Admin: 05/14/23 17:19 Dose: 0.5 mg Documented By: CHASE Metronidazole (Flagyl) 500 mg in 100 mls @ 100 mls/hr IV Q8H [facility] Last Infusion: 05/16/23 09:47 Dose: Infused Documented By: LESIA Levofloxacin (Levaquin) 500 mg in 100 mls @ 100 mls/hr IV Q24H [facility] Last Infusion: 05/16/23 11:04 Dose: Infused Documented By: LESIA Dextrose/Sodium Chloride (D5ns) 1,000 mls @ 80 mls/hr IVCONT .[id number] [facility] Last Admin: 05/16/23 06:25 Dose: 80 mls/hr Documented By: EVA Melatonin (Melatonin 3 Mg Tablet) 6 mg PO BEDTIME PRN PRN Reason: Insomnia Nicotine (Nicotine 7 Mg Patch.Td24) 7 mg TRANSDERMA DAILY [facility] Last Admin: 05/16/23 08:35 Dose: 7 mg Documented By: LESIA Ondansetron HCl (Ondansetron Hcl 4 Mg/2 Ml Vial) 4 mg IVPUSH Q8H PRN PRN Reason: Nausea and Vomiting Oxycodone HCl (Oxycodone Hcl Immed Release 5 Mg Tablet) 5 mg PO Q6H PRN PRN Reason: Pain, Moderate(Pain Scale 4-6) Last Admin: 05/16/23 08:35 Dose: 5 mg Documented By: LESIA Sodium Chloride (0.9 % Sodium Chloride Flush 3 Ml Syringe) [facility] Last Admin: 05/16/23 08:36 Dose: 3 ml Documented By: LESIA Labs 05/14/23 05:23 05/14/23 05:23 Microbiology Microbiology Results: Microbiology 05/13/23 08:42 Blood Culture - Preliminary Blood - Venous No growth after 48 hours. 05/13/23 08:44 Blood Culture - Preliminary Blood - Venous No growth after 48 hours. 05/13/23 13:40 Gram Stain - Final Abscess Intra-abdominal Routine Culture - Final Escherichia coli Anaerobic Culture - Preliminary Culture in progress. Procedures Date of Service Date of Service: 05/16/23 Progress Note: A&P Assessment and plan (1) Diverticulitis of intestine with abscess: Status: Acute Assessment and Plan: S/P CT drain much improved diet as tolerated will eventually need colonoscopy - Dr Taylor has done his colonoscopy IV abx doing well Time Spent With Patient Time: Total time managing care of this patient today ____ minutes. Quality Stroke Does the patient have a stroke diagnosis?: No VTE Prior VTE?: No VTE Risk Level:: Surgical - moderate VTE Device Contraindication: N/A - Device Ordered VTE Drug Contraindication: N/A - Med Ordered
--- NOTE | 2023-05-16 14:24 | MHC.CM.PN ---
EMR REVIEWED AND PER MD ROUNDS, PT NOT MEDICALLY CLEARED FOR DC HOME. REQUEST SENT TO FINANCIAL SERVICES REGARDING INSURANCE , PT BELIEVES HE MAY HAVE [place]. CM SPOKE WITH FS COUNSELOR QUIANA WHO HAS CONTACTED . CM WILL CONTINUE TO FOLLOW FOR ANY CHANGE IN DC PLAN/NEEDS.
[2023-05-16 15:22] VITALS: BP 134/81; PULSE 65; RESP 18; TEMP 36.7; O2SAT 97
[2023-05-16 19:32] VITALS: BP 139/73; PULSE 65; RESP 18; TEMP 36.4; O2SAT 99
[2023-05-17] MEDS: metroNIDAZOLE/NS 500 MG/100 ML PIGGYBACK 100 MG IV ×2 (00:05→08:23)
[2023-05-17] MEDS: Acetaminophen 325 MG TABLET 650 MG PO (01:24)
[2023-05-17 04:00] VITALS: BP 140/79; PULSE 60; RESP 16; TEMP 36; O2SAT 99
[2023-05-17] MEDS: Dextrose 5 % and 0.9 % NaCl 1,000 ML 80 ML IVCONT (06:05)
[2023-05-17 07:40] VITALS: BP 167/79; PULSE 54; RESP 18; TEMP 36.2; O2SAT 98
--- NOTE | 2023-05-17 07:42 | PM.PNGS ---
Subjective Subjective Date of Service: 05/17/23 Interval history: feels well slept well denies pain tolerating diet Physical Exam Vital Signs: Vital Signs: Last Vital Signs Temp 96.8 F 05/17/23 04:00 Pulse 60 05/17/23 04:00 Resp 16 05/17/23 04:00 BP 140/79 H 05/17/23 04:00 Pulse Ox 99 05/17/23 04:00 O2 Del Method Room Air 05/17/23 04:00 BMI result Body Mass Index 25.3 Const: General: comfortable and no acute distress Resp: Effort & Inspection: normal respiratory effort Cardio: Rate: regular rate GI: Other: drain - scanty, old blood Palpation (GI): Soft to palpation, not firm, nontender and no guarding Objective Data Active Medications Acetaminophen (Acetaminophen 325 Mg Tablet) 650 mg PO Q6H PRN PRN Reason: Fever Last Admin: 05/17/23 01:24 Dose: 650 mg Documented By: SCAR Hydromorphone HCl (Hydromorphone Hcl 1 Mg/Ml Syringe) 0.5 mg IVPUSH Q4H PRN; Protocol PRN Reason: Pain, Severe (Pain Scale 7-10) Last Admin: 05/14/23 17:19 Dose: 0.5 mg Documented By: CHASE Metronidazole (Flagyl) 500 mg in 100 mls @ 100 mls/hr IV Q8H [facility] Last Infusion: 05/17/23 01:25 Dose: Infused Documented By: SCAR Levofloxacin (Levaquin) 500 mg in 100 mls @ 100 mls/hr IV Q24H [facility] Last Infusion: 05/16/23 11:04 Dose: Infused Documented By: LESIA Dextrose/Sodium Chloride (D5ns) 1,000 mls @ 80 mls/hr IVCONT .[id number] [facility] Last Admin: 05/17/23 06:05 Dose: 80 mls/hr Documented By: SCAR Melatonin (Melatonin 3 Mg Tablet) 6 mg PO BEDTIME PRN PRN Reason: Insomnia Nicotine (Nicotine 7 Mg Patch.Td24) 7 mg TRANSDERMA DAILY [facility] Last Admin: 05/16/23 08:35 Dose: 7 mg Documented By: LESIA Ondansetron HCl (Ondansetron Hcl 4 Mg/2 Ml Vial) 4 mg IVPUSH Q8H PRN PRN Reason: Nausea and Vomiting Oxycodone HCl (Oxycodone Hcl Immed Release 5 Mg Tablet) 5 mg PO Q6H PRN PRN Reason: Pain, Moderate(Pain Scale 4-6) Last Admin: 05/16/23 21:41 Dose: 5 mg Documented By: JOHN Sodium Chloride (0.9 % Sodium Chloride Flush 3 Ml Syringe) [facility] Last Admin: 05/17/23 00:06 Dose: Not Given Documented By: ANTOIC Non-Admin Reason: IV Running Labs 05/14/23 05:23 05/14/23 05:23 Microbiology Microbiology Results: Microbiology 05/13/23 13:40 Gram Stain - Final Abscess Intra-abdominal Routine Culture - Final Escherichia coli Anaerobic Culture - Final Bacteroides fragilis Veillonella species Procedures Date of Service Date of Service: 05/17/23 Progress Note: A&P Assessment and plan (1) Diverticulitis of intestine with abscess: Status: Acute Assessment and Plan: s/p IR drain cultures - E colio and Bacteroides, resistant to Levaquin will dc home on Bactrim ffup next week to remove drain doing very well dc instructions given Time Spent With Patient Time: Total time managing care of this patient today ____ minutes. Quality Stroke Does the patient have a stroke diagnosis?: No VTE Prior VTE?: No VTE Risk Level:: Surgical - moderate VTE Device Contraindication: N/A - Device Ordered VTE Drug Contraindication: N/A - Med Ordered
[2023-05-17] MEDS: Nicotine 7 MG PATCH.TD24 TRANSDERMA (08:23)
[2023-05-17] MEDS: oxyCODONE HCl Immed Release 5 MG TABLET PO (08:33)
--- NOTE | 2023-05-17 08:34 | MHC.CM.PN ---
DP: PT HAS BEEN MEDICALLY CLEARED FOR DC HOME, NO SERVICES. PT HAS OWN RIDE HOME.
--- NOTE | 2023-05-17 13:55 | P.DS_ITS ---
DS: Providers Provider Date of Service: 05/17/23 Date of admission: 05/13/23 08:57 Primary care physician: Digna Physician Attending physician on admission: Victoriano Sherman Attending physician on discharge: Victoriano Sherman DS: Diagnosis Discharge Diagnosis (1) Diverticulitis of intestine with abscess: Status: Acute DS: Summary Hospital Course Hospital Course: HPI AT ADMISSION: Lucio Manzano is a 57 year old male with no significant PMH who was in his usual state of health until he developed severe lower abd pain on Tuesday following lifting a snowblower onto a ramp. The pain has gradually worsened and is associated with nausea without vomiting, diarrhea and hematuria which has resolved. The pain has been progressively worsening and he could not sleep last night and decided to come in for evaluation. He denies sick contacts. In ED, work up included CBC, BMP and LFTs which was significant for a leukocytosis of 15.[address] scan of abd/pelvis was performed which showed sigmoid colon diverticulitis with large abscess extending from the perforated diverticulum in the sigmoid colon with mass effect on the urinary bladder fundus. General surgery was therefore consulted. He reports hx of b/l hernia repair. He had a colonoscopy in 2009 which showed mild diverticulosis and hemorrhoids. HOSPITAL COURSE: 57 year old healthy male with almost 1 week of lower abdominal pain found to have leukocytosis and large diverticular abscess. He is overall well and non toxic appearing. Recommended nonoperative management and to proceed with IR drainage, IV zosyn, bowel rest. On 05/13/23, CT guided drainage was performed with 50 mL of thick purulent fluid was removed and drain was left in place. He improved clinically and symptomatically following this. His WBC count improved and abdominal pain decreased. His diet was gradually advanced to clear liquids and then solid diet as tolerated. His activity was increased. He remained inpatient for IV abx while awaiting cultures and received 5 days of IV abx. His abscess cultures came back positive for E coli and Bacteroides, resistant to Levaquin. On the day of discharge, he was tolerating a solid diet with no abdominal pain. His drain had scanty output but was left in place. His abd was benign. He was discharged to home on 05/17/23 in stable condition on Bactrim PO for 5 days. He is to follow up in the office in 2 weeks. He is to have a repeat colonoscopy down the line. Status at Discharge Functional status at discharge: independent ambulation Time Attestation Discharge coordination time: Less than 30 minutes Quality: Safe Use of Opioids Does Pt have an Active Cancer Diagnosis on the Problem List?: No Quality: Stroke Does the patient have a stroke diagnosis?: No Physical Exam Vital Signs: Vital Signs: Last Vital Signs Temp 97.1 F 05/17/23 07:40 Pulse 54 05/17/23 07:40 Resp 18 05/17/23 07:40 BP 167/79 H 05/17/23 07:40 Pulse Ox 98 05/17/23 07:40 O2 Del Method Room Air 05/17/23 07:40 BMI result Body Mass Index 25.3 Const: General: comfortable and no acute distress Orientation/c onsciousness: patient oriented x3 GI: Other: MICHAEL output scant, old blood Inspection: No distended Palpation (GI): Soft to palpation and nontender Neuro: General: patient oriented x3 DS: Data Data Completed and Pending Labs on day of discharge: Preliminary micro results at discharge 05/13/23 08:42 Blood Culture - Preliminary Blood - Venous No growth after 48 hours. 05/13/23 08:44 Blood Culture - Preliminary Blood - Venous No growth after 48 hours. Discharge Plan Discharge Anticipated Discharge Date/Time: 05/17/23 07:45 Patient Disposition: Home, Self-Care Discharge Diagnosis: diverticular abscess Referrals: Victoriano Sherman MD [Physician] - 1 Week Physician,Digna J [Primary Care Provider] - 1 Week Discharge Medications: New sulfamethoxazole-trimethoprim [Bactrim DS] 800-160 mg tablet 1 tab PO BID Qty: 10 0RF oxycodone 5 mg tablet 5 mg PO Q4H PRN (Reason: pain) Qty: 15 0RF Rx Instructions: Partial Fill upon patient request. Continued naproxen sodium [Aleve] 220 mg Capsule 220 mg PO BID PRN (Reason: Pain) Discharge Orders: Discharge Order (Routine); Ordered 05/17/23 Ordered By: Victoriano Sherman Diet: Advance to usual diet Activity on Discharge: No heavy lifting Stand Alone Forms: Patient Portal Discharge page Activity Restrictions/Additional Instructions: ok to shower empty drain 1-2x a day ffup in office next week call fo severe pain, high fever Care Plan Goals: control diverticular disease Health Concerns: diverticular disease Plan of Treatment: oral abx Assessment: doing very well Discharge Date/Time: 05/17/23 10:17
== END 2023-05-17 10:17 | disposition home or self-care (01) | DRG 244 ==
LOC: HO.ED 08:39 → HO.EDOVER 09:08 → HO.S3 12:54
PROVIDERS: Physician Assistant Surgical; Admitting Provider Physician Assistant Surgical; Emergency Provider Emergency Medicine; Visit Provider Physician Assistant Surgical
DX: K57.20 Diverticulitis of large intestine with perforation and abscess without bleeding (principal); B96.20 Unspecified Escherichia coli [E. coli] as the cause of diseases classified elsewhere; F17.210 Nicotine dependence, cigarettes, uncomplicated; Z71.6 Tobacco abuse counseling; B96.6 Bacteroides fragilis [B. fragilis] as the cause of diseases classified elsewhere; Z16.23 Resistance to quinolones and fluoroquinolones; Z88.0 Allergy status to penicillin
CPT/HCPCS: 36415; 74177; 75989; 80048; 80053; 81001; 83605; 85025; 85610; 87040; 87070; 87073; 87076; 87077; 87086; 87185; 87186; 87205; 99285; C1729; J0696; J1170; J1836; J1956; J2270; J2405; J7120; Q4186; Q9967

== ENCOUNTER → 2023-05-13 08:43 | Outpatient (BNV) | payer MEDICAID, SELFPAY | PROVIDERS: Admitting Provider Physician Assistant Surgical; Emergency Provider Emergency Medicine; Visit Provider Radiology Diagnostic Radiology | DX: K57.80 Diverticulitis of intestine, part unspecified, with perforation and abscess without bleeding (principal) | CPT/HCPCS: 49405 ==

== ENCOUNTER → 2023-05-13 08:57 | Outpatient (BNV) | payer MEDICAID, SELFPAY | PROVIDERS: Admitting Provider Physician Assistant Surgical; Emergency Provider Emergency Medicine; Visit Provider Surgery | DX: K57.20 Diverticulitis of large intestine with perforation and abscess without bleeding (principal) | CPT/HCPCS: 99222; 99232; 99238; 99499 ==

== ENCOUNTER 2023-05-26 08:56 | Outpatient (AMB) | payer OTHER, SELFPAY ==
--- NOTE | 2023-05-26 09:06 | A.OFFVIS_ITS ---
Intake Vital Signs 05/26/23 09:17 Weight 154 lb Intake Visit Reasons: S/P IR drain Intake Note: This patient presents for an inpatient follow-up assessment status post IR drain. Patient c/o; reports no draining 0 mL. Bindery Helper Required: No Accompanied by: Self / Same As Patient Allergies codeine [CODEINE] Allergy (Unknown, Verified 05/26/23 09:17) NAUSEA & VOMITING penicillin V Allergy (Unknown, Verified 05/26/23 09:17) Unknown Penicillins [PENICILLINS] Allergy (Unknown, Verified 05/26/23 09:17) HIVES trazodone Allergy (Unknown, Verified 05/26/23 09:17) Unknown Codeine Sulfate Allergy (Unknown, Uncoded 05/26/23 09:17) Unknown Medication List - Last Reconciled 05/26/23 by Victoriano Sherman MD acetaminophen (Tylenol Extra Strength) 500 mg PO Q6H PRN naproxen sodium (Aleve) 220 mg PO BID PRN oxycodone 5 mg PO Q4H PRN sulfamethoxazole-trimethoprim 800-160 mg (Bactrim DS) 1 tab PO BID HPI S/P IR drain HPI Details 57-year-old male here for follow-up for a diverticular abscess. He was admitted on 05/13/2022 for a sigmoid diverticulitis with an abscess. He had undergone IR drainage at that time with a pigtail left in place. He was on IV antibiotics. He improved significantly and was discharged on 05/18/2022 with a d rain in place He feels well overall. He denies any abdominal pain. He he has good oral intake. He says that there has not been any drainage from the drain. [facility] Medical History (Updated 05/26/23 @ 09:41 by Victoriano Sherman MD) Colonic diverticular abscess No pertinent past medical history Surgical History H/O hernia repair Social History Household Members: Significant Other and Children Housing: Apartment Do you presently have visiting nurse or other home services: No Alcohol intake: current Alcohol intake frequency: 0-2 drinks per day Patient Tobacco Use Status: Current everyday Tobacco user Tobacco use type: Cigarette Cigarettes Per Day: 10 Second Hand Smoke Exposure: Yes Substance Use Type: Marijuana service: No Review of Systems Const Denies chills and Denies fever(s) Card Denies chest pain, Denies dyspnea and Denies dyspnea on exertion Resp Denies cough, Denies dyspnea and Denies dyspnea on exertion GI Denies hematochezia and Denies change in bowel habits Denies hematuria and Denies difficulty urinating Musc Denies back pain and Denies limited range of motion Neuro Denies focal weakness and Denies convulsions Psych Denies depression and Denies mood swings Physical Exam Const General: comfortable and no acute distress Resp Effort & Inspection: normal respiratory effort GI Other: IR drain in place suprapubic area, no output Palpation (GI): Soft to palpation, not firm and nontender Assessment & Plan Assessment & Plan (1) Colonic diverticular abscess: Code(s): K57.20 - Diverticulitis of large intestine with perforation and abscess without bleeding Plan: He is doing very well. He has completed his course of antibiotics. I removed his IR drain without difficulty. I will see him in the office in about a month. I will discuss with Dr. Taylor whether he wants to do the colonoscopy after that. Patient understands that he may eventually need a lifting resection. He is doing very well overall. Coding Level of Care Code Est Pt Level 3 (47007) Diagnoses Colonic diverticular abscess K57.20
== END 2023-05-26 09:36 | disposition home or self-care (01) ==
PROVIDERS: PCP Physician Assistant; Visit Provider Surgery
DX: K57.20 Diverticulitis of large intestine with perforation and abscess without bleeding (principal)
CPT/HCPCS: 99213

== ENCOUNTER → 2023-05-26 08:56 | Outpatient (BNVA) | payer OTHER, SELFPAY | PROVIDERS: PCP Physician Assistant; Visit Provider Surgery | DX: Z48.03 Encounter for change or removal of drains (principal); K57.20 Diverticulitis of large intestine with perforation and abscess without bleeding | CPT/HCPCS: 99212 ==

== ENCOUNTER 2023-05-30 08:47 | Outpatient (AMB) | payer OTHER, SELFPAY ==
--- NOTE | 2023-05-30 08:48 | MHC.PC.OV ---
Vital Signs 05/30/23 08:51 Height 5 ft 6 in Weight 148 lb 2 oz BMI 23.9 BP 112/70 Blood Pressure Location Lt brachial Position Sitting Pulse 77 Pulse Source Pulse Oximeter Pulse Oximetry (%) 100 Oxygen Delivery Method Room Air Intake Visit Reasons: est care/ gastro referral Intake Note: Patient is a new patient here to re-establish care for Diverticulaer. Transferring care from Dr Miguel. Medical records have not been requested and have not received. Guest Experience Manager Required: No Web Production Designer: Not Required per policy Accompanied by: Self / Same As Patient Allergies codeine [CODEINE] Allergy (Unknown, Verified 05/30/23 09:41) NAUSEA & VOMITING penicillin V Allergy (Unknown, Verified 05/30/23 09:41) Unknown Penicillins [PENICILLINS] Allergy (Unknown, Verified 05/30/23 09:41) HIVES trazodone Allergy (Unknown, Verified 05/30/23 09:41) Unknown Codeine Sulfate Allergy (Unknown, Uncoded 05/30/23 09:41) Unknown Medication List - Last Reconciled 05/30/23 by Lorenzo Burns MD acetaminophen (Tylenol Extra Strength) 500 mg PO Q6H PRN oxycodone 5 mg PO Q4H PRN Tobacco use date assessed: 05/30/23 Dental Screening Dental Screen Date: 05/30/23 Did you have a dental visit in the last 12 months?: No Did you have a dental problem in the last 6 months where you did not have access to dental care?: No Was dental information given to patient?: No (dentures) HPI HPI Comments History of Present Illness Details 57-year-old male presents to the office to establish his care. He was recently admitted to the hospital with a perforated colon and intra-abdominal abscess. Patient was discharged and has now completed the antibiotics. He was feeling well and had seen his surgeon on May 26. The intra-abdominal drain was removed. Subsequent to that patient is experiencing pain in the suprapubic area. The pain is worse on urinating and while having a bowel movement. No fevers or chills. No nausea or vomiting. Patient smokes tobacco. He smokes half pack a day. Currently he has not employed. [facility] Medical History (Updated 05/30/23 @ 09:44 by Lorenzo Burns MD) Colonic diverticular abscess Surgical History H/O hernia repair Social History Household Members: Significant Other and Children Housing: Apartment Do you presently have visiting nurse or other home services: No Alcohol intake: current Alcohol intake frequency: a few times a month Patient Tobacco Use Status: Current everyday Tobacco user Tobacco use type: Cigarette Cigarette Packs Per Day: 0.5 Cigarettes Per Day: 10 e-Cigarette/Vaping Use: Never Used Second Hand Smoke Exposure: Yes Substance Use Type: Marijuana service: No Current occupational status: unemployed Cognitive needs: No Hearing needs: No Vision needs: No Questionnaire PHQ-9 Over the last 2 weeks, how often have you been bothered by any of the following problems? 1. Little interest or pleasure in doing things: not at all 2. Feeling down, depressed, or hopeless: not at all 3. Trouble falling or staying asleep, or sleeping too much: not at all 4. Feeling tired or having little energy: not at all 5. Poor appetite or overeating: not at all 6. Feeling bad about yourself - or that you are a failure or have let yourself or your family down: not at all 7. Trouble concentrating on things, such as reading the newspaper or watching television: not at all 8. Moving or speaking so slowly that other people could have noticed. Or the opposite - being so fidgety or restless that you have been moving around a lot more than usual: not at all 9. Thoughts that you would be better off or of hurting yourself in some way: not at all Total score: 0 Depression Screening Interpretation: Negative Depression Screening Done: Yes Source: Developed by Drs. Wes Pierre, Giulia Crowell, Clifford Mar and colleagues, with an educational merary from [employer] Thrive Questionnaire Date Thrive assessed: 05/14/23 AUDIT C Alcohol Use Questionnaire (AUDIT-C) 1. How often do you have a drink containing alcohol?: 2-4 times a month 2. How many drinks containing alcohol do you have on a typical day when you are drinking?: 1 or 2 Total Score: 2 ZEKE-7 AMB Questionnaire ZEKE-7 Date ZEKE - 7 assessed: 05/30/23 Feeling nervous, anxious, or on edge: 0 = Not at all Not being able to stop or control worryin = Not at all Worrying too much about different things: 0 = Not at all Trouble relaxin = Not at all Being so restless that it is hard to sit still: 0 = Not at all Becoming easily annoyed or irritable: 0 = Not at all Feeling afraid as if something awful might happen: 0 = Not at all Total ZEKE-7 score (0-4 normal; 5-9 mild; 10-14 moderate; 15-21 severe): 0 Source: Developed by Drs. Wes Pierre, Giulia Crowell, Clifford Mar and colleagues, with an educational merary from [employer]). Physical exam (Primary Care) Vital Signs: Last Vital Signs Pulse 77 05/30/23 08:51 BP 112/70 05/30/23 08:51 Pulse Ox 100 05/30/23 08:51 Oxygen Delivery Method Room Air 05/30/23 08:51 Care Plan Goal for BP management: Blood pressure is in range. BMI result Body Mass Index 23.9 Tobacco/Smoking Status: Tobacco use Status Tobacco use date assessed 05/30/23 05/30/23 09:03 Patient Tobacco Use Status Current everyday Tobacco 05/30/23 09:01 Tobacco use type Cigarette 05/30/23 09:01 e-Cigarette/Vaping Use Never Used 05/30/23 09:03 Are you ready to quit: No Tobacco cessation counseling provided: No PHQ-9: PHQ-9 Score PHQ-9: Total score 0 05/30/23 08:49 Depression Screening Interpretation: Negative Thrive Assessment: Date of Thrive Assessment Date Thrive assessed 05/14/23 05/30/23 08:49 Const General: cooperative and healthy appearing Nutritional Appearance: well nourished Orientation/consciousness: patient oriented x3 Limitations: no limitations HENMT Head: Yes normal to inspection Eyes General: appearance normal, both eyes and all related structures Neck Neck: Yes normal visual inspection Chest Chest palpation & inspection: normal palpation of entire chest wall Resp Effort & Inspection: normal respiratory effort GI Other: Abdomen: Tenderness over the suprapubic area. The skin site where the drain was inserted appears to be healing. Neuro General: patient oriented x3 Assessment and Plan Assessment & Plan (1) Colonic diverticular abscess: Code(s): K57.20 - Diverticulitis of large intestine with perforation and abscess without bleeding Plan: Blood work has been ordered again to check for leukocytosis. A note will be sent to the surgeon regarding patient's current clinical condition. Oxycodone for a few more days has been prescribed. Patient has a colonoscopy appointment in June and a follow-up with the surgeon at the end of this month. Orders: Orders Erythrocyte Sedimentation Rate Today K57.20 - Diverticulitis of large intestine with perforation and abscess without bleeding Complete Blood Count no Diff Today K57.20 - Diverticulitis of large intestine with perforation and abscess without bleeding Basic Metabolic Panel Today K57.20 - Diverticulitis of large intestine with perforation and abscess without bleeding Liver Panel Today K57.20 - Diverticulitis of large intestine with perforation and abscess without bleeding Lipid Panel Today K57.20 - Diverticulitis of large intestine with perforation and abscess without bleeding Thyroid Stimulating Hormone Today K57.20 - Diverticulitis of large intestine with perforation and abscess without bleeding UA and rflx microscopic Today K57.20 - Diverticulitis of large intestine with perforation and abscess without bleeding Medications: Refilled oxycodone Partial Fill upon patient request. 5 mg PO Q4H PRN 15 tabs 0RF pain Coding Level of Care Code Est Pt Level 4 (52683) Diagnoses Colonic diverticular abscess K57.20
[2023-05-30 08:51] VITALS: BP 112/70; PULSE 77; O2SAT 100; BMI 23.9
== END 2023-05-30 09:30 | disposition home or self-care (01) ==
PROVIDERS: PCP Physician Assistant; Visit Provider Internal Medicine
DX: K57.20 Diverticulitis of large intestine with perforation and abscess without bleeding (principal)
CPT/HCPCS: 99214

== ENCOUNTER 2023-05-30 09:40 | Outpatient (REF) | payer OTHER, SELFPAY ==
[2023-05-30 10:56] LABS: Hematocrit 40.9 % (42.0-52.0); Hemoglobin 14.1 g/dl (14.0-18.0); Mean Corpuscular HGB Conc 34.5 g/dl (31.0-36.0); Mean Corpuscular Hemoglobin 29.7 pg (27.0-33.0); Mean Corpuscular Volume 86.3 fL (80.0-98.0); Mean Platelet Volume 8.6 fL (9.4-12.4); Platelet Count 485 X10*3/uL (160-400); Red Blood Count 4.74 X10*6/uL (4.60-5.80); Red Cell Distribution Width 13.3 % (11.0-16.0); White Blood Count 13.6 X10*3/uL (4.8-10.8)
[2023-05-30 11:06] LABS: Appearance Urine Cloudy; Color Urine Dark Yellow; Glucose Urine UA Negative (Negative); Leukocyte Esterase Urine Negative (Negative); Nitrite Urine Negative (Negative); PH 6.5 (5.0-9.0); Specific Gravity - Urine 1.025 (1.005-1.025); UMIC TRIGGER UA YES; Urine Blood Negative (Negative); Urine Ketones Trace mg/dL (Negative); Urine Protein 30 (1+) mg/dL (Neg-Trace)
[2023-05-30 11:11] LABS: Bacteria Urine None Seen (None Seen); Hyaline Casts Urine 0-2 /LPF (0-2); RBC Urine 0-2 /HPF (0-2); Squamous Epithelial Cell Urine 0-2 /HPF (0-2); WBC Urine 0-5 /HPF (0-5)
[2023-05-30 11:14] LABS: Alanine Aminotransferase 17 U/L (0-40); Alkaline Phosphatase 101 U/L (39-117); Anion Gap 14 (12-20); Aspartate Amino Transferase 19 U/L (5-37); Bilirubin Direct 0.2 mg/dL (0.0-0.5); Bilirubin Total 0.3 mg/dL (0.0-1.0); Blood Urea Nitrogen 11 mg/dL (9-16); Calcium 9.8 mg/dL (8.4-10.2); Carbon Dioxide 26 mmol/L (22-29); Chloride 103 mmol/L (96-108); Cholesterol 145 mg/dL (<200); Estimated Glomerular Filt Rate > 60; Glucose Random 100 mg/dL (60-115); HDL Cholesterol 46 mg/dL (>40); LDL Cholesterol Calculated 84 mg/dL (<100); Potassium 4.1 mmol/L (3.3-5.1); Sodium 139 mmol/L (135-145); Total Protein 7.4 g/dL (6.5-8.0); Triglycerides 75 mg/dL (<150)
[2023-05-30 11:30] LABS: Thyroid Stimulating Hormone 1.57 uIU/mL (0.32-4.0)
[2023-05-30 11:32] LABS: Erythrocyte Sedimentation Rate 57 MM/HR (0-15)
== END 2023-05-30 09:41 | disposition home or self-care (01) ==
LOC: HO.10HDL 09:40
PROVIDERS: Visit Provider Internal Medicine
DX: K57.20 Diverticulitis of large intestine with perforation and abscess without bleeding (principal)
CPT/HCPCS: 36415; 80048; 80061; 80076; 81001; 84443; 85027; 85652

== ENCOUNTER 2023-06-13 05:42 | Inpatient (IN) | payer OTHER, SELFPAY ==
--- NOTE | ~2023-06-13 | CT_ITS ---
PROCEDURE: CT GUIDED ABSCESS DRAINAGE CLINICAL INFORMATION: Pelvic Abscess COMPARISON: 05/13/2023 TECHNIQUE: The skin was prepped and draped in the usual fashion. 1% Xylocaine was used for local anesthetic. Under CT guidance via a left anterior lateral approach an AccuStick needle was placed into the abscess cavity. The track was dilated with progressive dilators due to the mesh in the anterior abdominal wall followed by placement of an 8 [place] pigtail catheter. 10 mL of purulent fluid was aspirated and sent for Gram stain, culture and sensitivity. This CT examination was performed using dose optimization techniques as appropriate, variously including the following: *Automated exposure control *Adjustment of mA and/or kV according to patient size (this includes techniques or standardized protocols for targeted exams where dose is matched to indication/reason for exam; i.e. extremities or head) *Use of iterative reconstruction technique FINDINGS: CT-guided drainage of the abscess anterior and cephalad to the bladder. An 8 [place] pigtail catheter was placed. CT/CT guided drainage IMPRESSION: Unremarkable examination.
--- NOTE | ~2023-06-13 | CT_ITS ---
EXAMINATION: CT ABDOMEN AND PELVIS WITH CONTRAST CLINICAL INFORMATION: Post surgical abscess the suprapubic region COMPARISON: CT abdomen from 05/13/2023, CT-guided percutaneous drainage from the 05/13/2023 TECHNIQUE: Multidetector volumetric images were obtained from the superior aspect of the liver through the pubic symphysis following administration 85 mL of Omnipaque 350 intravenous contrast. Sagittal and coronal reformatted images were obtained on the technologist's workstation. Oral contrast: No This CT examination was performed using dose optimization techniques as appropriate, variously including the following: *Automated exposure control *Adjustment of mA and/or kV according to patient size (this includes techniques or standardized protocols for targeted exams where dose is matched to indication/reason for exam; i.e. extremities or head) *Use of iterative reconstruction technique DLP: 271 mGy-cm FINDINGS: LUNG BASES: Bibasilar atelectasis. Calcified granuloma right lung base. Mild emphysematous changes. No pneumothorax. No large pleural effusion. LIVER, GALLBLADDER, AND BILIARY TREE: The liver is normal in size, shape, and attenuation. No focal hepatic lesion or biliary ductal dilatation is present. The gallbladder is unremarkable with no evidence of radiopaque gallstones, gallbladder wall thickening, or obvious pericholecystic inflammatory changes. PANCREAS: Unremarkable. SPLEEN: Unremarkable. ADRENAL GLANDS: Unremarkable. KIDNEYS AND URETERS: The kidneys are normal in size, shape, and attenuation. No hydronephrosis, hydroureter, or calculi seen. No perinephric stranding. GASTROINTESTINAL TRACT/URINARY BLADDER: There has been interval removal of previously placed percutaneous pigtail drain along the anterior urinary bladder. A residual abscess cavity is noted interposed between the sigmoid colon and anterior/cranial margin of the urinary bladder (series 4, image 479 measuring approximately 2.0 x 1.6 cm previously measuring 5.0 x 4.9 x 4.9 cm. Redemonstrated colonic diverticulosis with improving mild thickening and pericolonic changes involving the sigmoid colon. Improvement in previously identified changes involving the jejunum. Small hiatal hernia. The small and large bowel are unremarkable. The appendix is not definitively visualized. ABDOMINAL WALL: Anterior pelvic wall hernia mesh. Soft tissue stranding in the subcutaneous tissue of the lower abdomen/pelvis slight thickening of the rectus abdominis muscle at this level. LYMPH NODES: A few subcentimeter mesenteric and inguinal lymph nodes are really identified, potentially reactive. VASCULAR: Abdominal aorta is nonaneurysmal. Atherosclerotic calcifications of the abdominal aorta and its branches. PELVIC VISCERA: Prostate measures 4.2 x 4.3 cm. OSSEOUS STRUCTURES: Multilevel degenerative changes of the thoracolumbar lumbosacral spine greatest at L4-L5 sclerotic focus left femoral head and left iliac bone statistically representing a bone island. CT/CT abdomen pelvis w IV con IMPRESSION: 1. Interval removal of previously placed percutaneous pigtail drain along the anterior urinary bladder. A residual abscess cavity is noted interposed between the sigmoid colon and anterior/cranial margin of the urinary bladder measuring approximately 2.0 x 1.6 cm previously measuring 5.0 x 4.9 x 4.9 cm. 2. Redemonstrated colonic diverticulosis with improving mild thickening and pericolonic changes involving the sigmoid colon. Improvement in previously identified changes involving the jejunum. 3. Soft tissue stranding in the subcutaneous tissue of the lower abdomen/pelvis with slight thickening of the rectus abdominis muscle at this level.
[2023-06-13 05:46] VITALS: BP 146/80; PULSE 80; RESP 14; TEMP 37.3; O2SAT 94; BMI 24.2
[2023-06-13 06:26] LABS: Basophils Absolute Auto 0.1 X10*3/uL (0.0-0.2); Basophils Percent Auto 0.8 % (0-2); Eosinophils Absolute Auto 0.3 X10*3/uL (0.0-0.4); Eosinophils Percent Auto 2.6 % (0-4); Hematocrit 39.1 % (42.0-52.0); Hemoglobin 13.3 g/dl (14.0-18.0); Imm Gran Abs Auto 0.08 X10*3/uL (0.00-0.03); Imm Gran Pct Auto 0.7 % (0.0-0.4); Lymphocytes Absolute Auto 2.3 X10*3/uL (1.2-4.9); Lymphocytes Percent Auto 20.6 % (20-40); MANUAL DIFF FLAG NO; Mean Corpuscular Hemoglobin 28.7 pg (27.0-33.0); Mean Corpuscular Volume 84.4 fL (80.0-98.0); Mean Platelet Volume 7.8 fL (9.4-12.4); Monocytes Absolute Auto 1.1 X10*3/uL (0.1-1.2); Monocytes Percent Auto 9.2 % (2-11); Neutrophils Absolute Auto 7.5 x10*3/uL (2.0-8.3); Neutrophils Percent Auto 66.1 % (45-73); Platelet Count 471 X10*3/uL (160-400); Red Blood Count 4.63 X10*6/uL (4.60-5.80); Red Cell Distribution Width 13.3 % (11.0-16.0); White Blood Count 11.4 X10*3/uL (4.8-10.8)
--- NOTE | 2023-06-13 06:28 | PC.NURSE ---
Patient presenting to ED for evaluation of erythema, warmth, induration, pain 8-10/10 mid abdomen, and yellow, greenish drainage from the site. Patient reports having diverticulitis with drainage tube placed on 05/13/2023 and then removed on 05/26/2023. Pt reports completing all antibiotic treatments. Highest temp taken at home was 99.8. Has been taking Tylenol extra strength for pain. VSS. 20 G IV line placed to R AC, labs drawn and sent to lab for processing. Call kauffman placed within patient's reach.
[2023-06-13 06:50] LABS: Lactic Acid 1.1 mmol/L (0.5-2.0)
[2023-06-13 06:56] LABS: Alanine Aminotransferase 13 U/L (0-40); Albumin Level 3.7 g/dL (3.5-5.0); Alkaline Phosphatase 117 U/L (39-117); Anion Gap 11 (12-20); Aspartate Amino Transferase 14 U/L (5-37); Bilirubin Total 0.1 mg/dL (0.0-1.0); Blood Urea Nitrogen 12 mg/dL (9-16); Calcium 9.5 mg/dL (8.4-10.2); Carbon Dioxide 24 mmol/L (22-29); Chloride 106 mmol/L (96-108); Creatinine Clr Calc Pharmacy 100.5; Estimated Glomerular Filt Rate > 60; Glucose Random 99 mg/dL (60-115); Sodium 137 mmol/L (135-145); Total Protein 7.2 g/dL (6.5-8.0)
--- NOTE | 2023-06-13 07:12 | ED_ITS ---
HPI - Skin/Abscess/Foreign Bdy General Chief complaint: Skin/Abscess/Foreign Body Stated complaint: Infection from recent surgery Time Seen by Provider: 06/13/23 06:45 Source: patient Mode of arrival: ambulatory Limitations: no limitations History of Present Illness HPI narrative: This is a 57-year-old male with recent diverticulitis of intestine with abscess discharge from this facility on 05/17/2023 presenting with lower abdominal pain and concerns of abscess. Patient reports this is the site where patient had his drain removed. He states that he has been having issues with this area for the past 2 weeks. He was put on p.o. antibiotics (Bactrim) with little to no relief in in the infection seems to be getting worse. Reports subjective fevers and chills intermittently and states that yesterday his temperature was 99 degrees point something. She also states that there is a moderate amount of yellow/green discharge being expressed from the site that the drain was removed. He states Dr. Sherman did the surgery. Denies CP, sob, nausea, vomiting, changes in urination, changes in bowel habits. Related Data Home Medications Medication Instructions Recorded Confirmed acetaminophen 500 mg tablet 500 mg PO Q6H PRN 05/26/23 05/26/23 (Tylenol Extra Strength) Previous Rx's Medication Instructions Recorded oxycodone 5 mg tablet 5 mg PO Q4H PRN pain #15 tabs 05/30/23 Allergies Allergy/AdvReac Type Severity Reaction Status Date / Time codeine [CODEINE] Allergy Unknown NAUSEA & Verified 06/13/23 05:45 VOMITING penicillin V Allergy Unknown Unknown Verified 06/13/23 05:45 Penicillins [PENICILLINS] Allergy Unknown HIVES Verified 06/13/23 05:45 trazodone Allergy Unknown Unknown Verified 06/13/23 05:45 Codeine Sulfate Allergy Unknown Unknown Uncoded 06/13/23 05:45 Review of Systems 2 Review of Systems: Constitutional : No Weight loss, No Fever, No Chills, No Fatigue, No Malaise ENT/Mouth : No sore throat, No Rhinorrhea Eyes: No Eye Pain, No Swelling, No Redness Cardiovascular : No Chest Pain, No SOB, No Dyspnea on Exertion, No Orthopnea, No Edema, No Palpitations Respiratory : No Cough, No Sputum, No Wheezing Gastrointestinal : No Nausea, No Vomiting, No Diarrhea, No Constipation, No abdominal Pain, No Hematochezia, No Melena Genitourinary : No Dysuria, No Urinary Frequency, No Hematuria, Musculoskeletal : No joint pain, No Myalgias, No Joint Swelling Skin : No Skin Lesions, + rash Neuro : No Weakness, No Numbness, No Dizziness, No Headache Psych : No Anxiety/Panic, No Depression All other systems reviewed and are negative Yes all other systems are reviewed and are negative [facility] Past Medical History Attestation statement: The following information was validated with the patient. Source: old records reviewed and nursing notes reviewed Medical History (Updated 06/13/23 @ 09:42 by LUCIA Chaney) Colonic diverticular abscess Surgical History H/O hernia repair Social History Social History Household Members: Significant Other and Children Housing: Apartment Do you presently have visiting nurse or other home services: No Alcohol intake: current Alcohol intake frequency: holidays/special occasions only Alcohol type: beer, wine and hard liquor Patient Tobacco Use Status: Current everyday Tobacco user Tobacco use type: Cigarette Cigarette Packs Per Day: 0.5 Cigarettes Per Day: 10 Smoked in Last 30 Days: No e-Cigarette/Vaping Use: Never Used Second Hand Smoke Exposure: Yes Use of substances other than those prescribed or required for medical reasons: Yes Substance Use Type: Marijuana Substance Use Frequency: Occasionally Last Used Substance: Days (ago) Any prior treatment program specific to substance use: No Advance Directives: No Advance Directives Information Provided: No service: No Current occupational status: unemployed Cognitive needs: No Hearing needs: No Vision needs: No Physical Exam 2 Vital Signs: Vital Signs: Last Vital Signs Temp 99.1 F 06/13/23 05:46 Pulse 80 06/13/23 05:46 Resp 14 06/13/23 05:46 BP 146/80 H 06/13/23 05:46 Pulse Ox 94 06/13/23 05:46 O2 Del Method Room Air 06/13/23 05:46 BMI result Body Mass Index 24.2 vss Appearance: Alert.? Oriented X3.? No acute distress.? Head: Normocephalic, atraumatic, no step-offs or deformities Eyes: Pupils equal, round and reactive to light.? CVS: Normal heart rate and rhythm.? Pulses normal.? Respiratory: No respiratory distress.? Breath sounds normal.? Abdomen: Soft and nontender.? Skin: Skin warm and dry.? Normal skin color.? Normal skin turgor.?+ erythema to lower abdomen worse in suprapubic region w/ induration to suprapubic region no palpable fluctuance Extremities: No lower extremity edema.? No calf ttp. 5/5 strength to bilateral upper and lower extremities Back: No midline tenderness, no C-spine tenderness, full range of motion, no CVA tenderness bilaterally Neuro: Oriented X 3.? No motor deficit.? No sensory deficit. CN 2-12 intact Course Reevaluation(s) Reevaluation #1: CBC with leukocytosis. No left shift. Chemistry no acute findings requiring intervention. Normal lactic acid. CT abdomen pelvis with interval removal previously placed percutaneous pigtail drain along the anterior urinary bladder residual abscess cavity is noted between the sigmoid colon and anterior cranial margin of the urinary bladder measuring 2 x 1.6 cm. Redemonstrated colonic diverticulosis with improving mild thickening and pericolonic changes. Soft tissue stranding in the subcutaneous tissue of the lower abdomen with slight thickening of the rectus abdominis muscle at this level. I did discuss this case with surgery Dr. Elam who will admit patient to surgical service at this time Time: 09:41 Medications Administered Discontinued Medications Generic Name Dose Route Start Last Admin Trade Name Freq PRN Reason Stop Dose Admin Ceftriaxone Sodium 1 gm/ 50 mls @ 100 mls/hr 06/13/23 07:31 06/13/23 08:13 Sodium Chloride IV 06/13/23 08:00 100 mls/hr ONCE ONE Administration Sodium Chloride 1,000 mls @ 999 mls/hr 06/13/23 07:45 06/13/23 08:14 Ns IV 06/13/23 08:45 999 mls/hr .Q1H1M YULISSA Administration Iohexol 100 ml 06/13/23 08:51 06/13/23 08:51 Iohexol 350 Mg/Ml 100 Ml Infus..Btl IV 06/13/23 08:52 85 ml ONCE ONE Administration Ketorolac Tromethamine 30 mg 06/13/23 07:28 06/13/23 08:13 Ketorolac Tromethamine 15 Mg/Ml Vial IVPUSH 06/13/23 07:29 30 mg ONCE ONE Administration Medical Decision Making Medical Decision Making [facility] Narrative: 0713 57-year-old male presents for concerns of abscess abdomen is status post surgical procedure states this happened after drain removal Physical exam erythema and warmth to lower abdomen throughout but worse in the suprapubic region, suprapubic region with induration. No fluctuance. History and physical exam concerning for cellulitis and possible abscess. Unlikely necrotizing infection. Unlikely systemic illness Plan at this time labs, imaging. Will reach out to surgeon that performed the procedure. Differential Diagnosis Differential Diagnoses: The differential diagnosis associated with the presentation includes History and physical exam concerning for cellulitis and possible abscess. Unlikely necrotizing infection. Unlikely systemic illness Admission/Observation Consideration of admission/observation: Escalation of care including admission/observation considered possible Consult Healthcare Provider Management of the patient was discussed with: Laborer General (general surgery ) Lab Data [facility] Lab Attestation statement: I reviewed the patient's lab results. 06/13/23 06:19 06/13/23 06:21 Labs: Lab Results 06/13/23 06/13/23 Range/Units 06:19 06:21 WBC 11.4 H (4.8-10.8) X10*3/uL RBC 4.63 (4.60-5.80) X10*6/uL Hgb 13.3 L (14.0-18.0) g/dl Hct 39.1 L (42.0-52.0) % MCV 84.4 (80.0-98.0) fL MCH 28.7 (27.0-33.0) pg MCHC 34.0 (31.0-36.0) g/dl RDW 13.3 (11.0-16.0) % Plt Count 471 H (160-400) X10*3/uL MPV 7.8 L (9.4-12.4) fL Immature Gran % (Auto) 0.7 H (0.0-0.4) % Neut % (Auto) 66.1 (45-73) % Lymph % (Auto) 20.6 (20-40) % [place] % (Auto) 9.2 (2-11) % Eos % (Auto) 2.6 (0-4) % Baso % (Auto) 0.8 (0-2) % Lymph # (Auto) 2.3 (1.2-4.9) X10*3/uL [place] # (Auto) 1.1 (0.1-1.2) X10*3/uL Eos # (Auto) 0.3 (0.0-0.4) X10*3/uL Baso # (Auto) 0.1 (0.0-0.2) X10*3/uL Abs Immat Gran (auto) 0.08 H (0.00-0.03) X10*3/uL Absolute Neuts (auto) 7.5 (2.0-8.3) x10*3/uL Absolute Nucleated RBC 0.000 (0.0-0.012) X10*3/uL Nucleated RBC % (auto) 0.0 (0.0-0.2) /100WBC Sodium 137 (135-145) mmol/L Potassium 4.0 (3.3-5.1) mmol/L Chloride 106 (96-108) mmol/L Carbon Dioxide 24 (22-29) mmol/L Anion Gap 11 L (12-20) BUN 12 (9-16) mg/dL Creatinine 0.74 (0.5-1.4) mg/dL Estim Creat Clear Calc 100.5 Estimated GFR > 60 Random Glucose 99 (60-115) mg/dL Lactic Acid 1.1 (0.5-2.0) mmol/L Calcium 9.5 (8.4-10.2) mg/dL Total Bilirubin 0.1 (0.0-1.0) mg/dL AST 14 (5-37) U/L ALT 13 (0-40) U/L Alkaline Phosphatase 117 (39-117) U/L Total Protein 7.2 (6.5-8.0) g/dL Albumin 3.7 (3.5-5.0) g/dL Independent Interpretation I performed an independent interpretation of an: CT Scan Radiology Impression Discussion of test interpretation with radiology: I have reviewed the radiologist's reading. Critical Care Time Critical Care Time Critical Care Time: Yes Total Critical Care Time: 35 Attestation: I attest to this time spent taking care of the patient, obtaining history, physical, reviewing labs, imaging, speaking to my attending, speaking to specialist. Discharge Plan Discharge Clinical Impression: Colonic diverticular abscess Patient Disposition: Admitted As Inpatient Prescriptions: No Action oxycodone 5 mg tablet 5 mg PO Q4H PRN (Reason: pain) Qty: 15 0RF Rx Instructions: Partial Fill upon patient request. acetaminophen [Tylenol Extra Strength] 500 mg tablet 500 mg PO Q6H PRN
[2023-06-13] MEDS: Ketorolac Tromethamine 15 MG/ML VIAL 30 MG IVPUSH (08:13)
[2023-06-13] MEDS: cefTRIAXone sodium 1 GM in 0.9 % Sodium Chloride 50 ML IV (08:13)
[2023-06-13] MEDS: 0.9 % Sodium Chloride 1,000 ML 999 ML IV (08:14)
[2023-06-13] MEDS: iohexoL 350 MG/ML 100 ML INFUS..BTL IV (08:51)
[2023-06-13] MEDS: fentaNYL citrate/PF 100 MCG/2 ML VIAL 50 MCG IVPUSH (09:55)
[2023-06-13 09:58] VITALS: BP 131/89; PULSE 60; RESP 14; TEMP 36.8; O2SAT 98
--- NOTE | 2023-06-13 11:13 | PHA.MEDREC ---
Pharmacy Consult ? Medication Reconciliation Pharmacy has completed the medication reconciliation.
[2023-06-13] MEDS: Lactated Ringers 500 ML 50 ML IV (11:26)
[2023-06-13 12:09] VITALS: BP 137/82; PULSE 51; RESP 16; O2SAT 98
[2023-06-13] MEDS: HYDROmorphone HCl 1 MG/ML SYRINGE 0.5 MG IVPUSH ×2 (13:40→18:52)
[2023-06-13 13:43] VITALS: BMI 23.5
[2023-06-13 13:44] VITALS: BP 171/83; PULSE 67; RESP 18; TEMP 36.3; O2SAT 98
[2023-06-13] MEDS: Nicotine 21 MG PATCH.TD24 TRANSDERMA (13:49)
[2023-06-13 15:34] VITALS: BP 164/94; PULSE 58; RESP 18; TEMP 36; O2SAT 99
--- NOTE | 2023-06-13 15:42 | PM.HPGS ---
History of Present Illness History of Present Illness Date of Service: 06/13/23 Chief complaint: Recurrent diverticulitis Narrative: Lucio Manzano is a 57 year old male who was recently hospitalized under the care of Dr. Sherman for complicated sigmoid diverticulitis. He underwent interventional radiologic drainage of pelvic abscess. Patient eventually had marked improvement of his symptoms, was advanced to regular diet, was ambulating minimal wound difficulty and was discharged home. Had drain removed as an outpatient. He breathes presents now because of purulent drainage from his drain site in the suprapubic area and marked redness/cellulitis of the area as well. Patient underwent repeat CT scan demonstrating although improvement nonetheless still significant diverticulitis with residual abscess in the pelvis. Chart was reviewed patient evaluated PMFSH Past Medical History Medical History (Updated 06/13/23 @ 09:42 by LUCIA Chaney) Colonic diverticular abscess Surgical History Surgical History H/O hernia repair Social History Social History Household Members: Significant Other Housing: Apartment Do you presently have visiting nurse or other home services: No Alcohol intake: current Alcohol intake frequency: holidays/special occasions only Alcohol type: beer, wine and hard liquor Patient Tobacco Use Status: Current everyday Tobacco user Tobacco use type: Cigarette Cigarette Packs Per Day: 0.5 Cigarettes Per Day: 15 Smoked in Last 30 Days: No e-Cigarette/Vaping Use: Never Used Patient Interested in Nicotine Replacement: Yes Patient Given Instructions on How to Stop Smoking: No Second Hand Smoke Exposure: Yes Use of substances other than those prescribed or required for medical reasons: Yes Substance Use Type: Marijuana Substance Use Frequency: Chronic Longstanding Last Used Substance: Days (ago) Any prior treatment program specific to substance use: No Do you feel safe in your current relationship?: Yes Advance Directives: No Advance Directives Information Provided: No Do you have thoughts of harming others: None Do you have a plan to hurt others: No Plan Recently lost weight without trying: Yes How much weight loss: 14-23 pounds Eating poorly because of decreased appetite: No Nutrition screen score: 4 Nutrition Risks: Dental problems Poor oral hygiene: No (Dentures) service: No Current occupational status: unemployed Cognitive needs: No Hearing needs: No Vision needs: No Meds Allergies Allergy/AdvReac Type Severity Reaction Status Date / Time codeine [CODEINE] Allergy Unknown NAUSEA & Verified 06/13/23 05:45 VOMITING penicillin V Allergy Unknown Unknown Verified 06/13/23 05:45 Penicillins [PENICILLINS] Allergy Unknown HIVES Verified 06/13/23 05:45 trazodone Allergy Unknown Unknown Verified 06/13/23 05:45 Codeine Sulfate Allergy Unknown Unknown Uncoded 06/13/23 05:45 Active Medications: Current Medications Acetaminophen (Acetaminophen 325 Mg Tablet) 650 mg PO Q6H PRN PRN Reason: Pain, Mild (Pain Scale 1-3) Al Hydroxide/Mg Hydroxide (Magnesium Hydrox/Alum Hydrox 30 Ml Oral.Susp) 30 ml PO Q4H PRN PRN Reason: Heartburn/Nausea Hydromorphone HCl (Hydromorphone Hcl 1 Mg/Ml Syringe) 0.5 mg IVPUSH Q4H PRN; Protocol PRN Reason: Pain, Severe (Pain Scale 7-10) Last Admin: 06/13/23 13:40 Dose: 0.5 mg Ceftriaxone Sodium 1 gm/ (Sodium Chloride) 50 mls @ 100 mls/hr IV Q12H [facility] Lactated Ringer's (Lr) 500 mls @ 50 mls/hr IV .Q10H [facility] Stop: 06/13/23 20:59 Last Admin: 06/13/23 11:26 Dose: 50 mls/hr Magnesium Hydroxide (Milk Of Magnesia 30 Ml Oral.Susp) 30 ml PO DAILY PRN PRN Reason: Constipation Nicotine (Nicotine 21 Mg Patch.Td24) 21 mg TRANSDERMA DAILY [facility] Last Admin: 06/13/23 13:49 Dose: 21 mg Ondansetron HCl (Ondansetron Hcl 4 Mg/2 Ml Vial) 4 mg IVPUSH Q8H PRN PRN Reason: Nausea and Vomiting Sodium Chloride (0.9 % Sodium Chloride Flush 3 Ml Syringe) 3 ml IVFLUSH QSHIFT [facility] Last Admin: 06/13/23 15:06 Dose: Not Given Home Medications Medication Instructions Recorded Confirmed Last Taken Type acetaminophen 500 mg tablet 500 mg PO Q6H PRN Pain (Scale 05/26/23 06/13/23 Unknown History (Tylenol Extra Strength) Score 1-3) Physical Exam Vital Signs: Vital Signs: Last Vital Signs Temp 96.8 F 06/13/23 15:34 Pulse 58 06/13/23 15:34 Resp 18 06/13/23 15:34 BP 164/94 H 06/13/23 15:34 Pulse Ox 99 06/13/23 15:34 O2 Del Method Room Air 06/13/23 15:34 BMI result Body Mass Index 23.5 GI: Other: Soft abdomen. Purulent drainage from suprapubic drain site. Some modest cellulitis of the surrounding area. Abdomen otherwise benign. Results Results Labs: Short CBC 06/13/23 Range/Units 06:19 WBC 11.4 H (4.8-10.8) X10*3/uL Hgb 13.3 L (14.0-18.0) g/dl Hct 39.1 L (42.0-52.0) % Plt Count 471 H (160-400) X10*3/uL BMP 06/13/23 06:21 Sodium 137 Potassium 4.0 Chloride 106 Carbon Dioxide 24 BUN 12 Creatinine 0.74 Calcium 9.5 Liver Function 06/13/23 Range/Units 06:21 Total Bilirubin 0.1 (0.0-1.0) mg/dL AST 14 (5-37) U/L ALT 13 (0-40) U/L Alkaline Phosphatase 117 (39-117) U/L Albumin 3.7 (3.5-5.0) g/dL Assessment and Plan (1) Colonic diverticular abscess: Status: Acute Plan Current plan is to treat the patient initially conservatively with IV antibiotics, local wound care. Dr. Sherman will reassume the patient's care tomorrow. Further interventions and studies will be directed by his evaluation. All questions answered. Patient's was also present during evaluated. Quality Stroke Does the patient have a stroke diagnosis?: No VTE Prior VTE?: No VTE Risk Level:: Surgical - low VTE Device Contraindication: N/A - Device Ordered VTE Drug Contraindication: N/A - Med Ordered Procedures Date of Service Date of Service: 06/13/23
[2023-06-13 19:10] VITALS: BP 169/86; PULSE 58; RESP 18; TEMP 36.6; O2SAT 98
[2023-06-13] MEDS: 0.9 % Sodium Chloride Flush 3 ML SYRINGE IVFLUSH (21:33)
[2023-06-14] MEDS: HYDROmorphone HCl 1 MG/ML SYRINGE 0.5 MG IVPUSH ×2 (01:27→07:35)
[2023-06-14 03:48] VITALS: BP 124/77; PULSE 56; RESP 16; TEMP 36; O2SAT 96
[2023-06-14 07:26] VITALS: BP 154/77; PULSE 59; RESP 14; TEMP 36; O2SAT 97
[2023-06-14] MEDS: Nicotine 21 MG PATCH.TD24 TRANSDERMA (07:29)
[2023-06-14] MEDS: 0.9 % Sodium Chloride Flush 3 ML SYRINGE IVFLUSH ×2 (07:30→15:26)
[2023-06-14] MEDS: metroNIDAZOLE/NS 500 MG/100 ML PIGGYBACK 100 MG IV ×2 (09:12→20:02)
[2023-06-14] MEDS: Lactated Ringers 1,000 ML 100 ML IVCONT ×2 (09:12→22:10)
[2023-06-14] MEDS: oxyCODONE HCl Immed Release 5 MG TABLET 10 MG PO ×4 (09:39→23:59)
--- NOTE | 2023-06-14 09:51 | MHC.CM.PN ---
CM MET WITH PT AT BEDSIDE. PT INDEPENDENT AND LIVES WITH S/O. +HCP COMPLETED AND PCP DR. TAVAREZ. DP: HOME, NO SERVICES ANTICIPATED. S/O WILL TRANSPORT HOME. CM WILL CONTINUE TO FOLLOW FOR ANY CHANGE IN DC PLAN/NEEDS.
[2023-06-14] MEDS: levoFLOXacin/D5W 500 MG/100 ML PIGGYBACK 100 MG IV (10:29)
--- NOTE | 2023-06-14 11:26 | PM.PNGS ---
Subjective Subjective Date of Service: 06/16/23 Interval history: History for admission reviewed Patient says he had been having some lower abdominal pain as well as drainage from the previous drain site Denies any fever He says he feels well overall Physical Exam Vital Signs: Vital Signs: Last Vital Signs Temp 96.8 F 06/14/23 07:26 Pulse 59 06/14/23 07:26 Resp 14 06/14/23 07:26 BP 154/77 H 06/14/23 07:26 Pulse Ox 97 06/14/23 07:26 O2 Del Method Room Air 06/14/23 07:26 BMI result Body Mass Index 23.5 Const: General: comfortable and no acute distress Resp: Effort & Inspection: normal respiratory effort Cardio: Rate: regular rate GI: Palpation (GI): Soft to palpation, not firm, Tenderness to palpation present (GI) (Mild tenderness on the lower abdomen and left side) and no guarding Objective Data Active Medications Acetaminophen (Acetaminophen 325 Mg Tablet) 650 mg PO Q6H PRN PRN Reason: Pain, Mild (Pain Scale 1-3) Al Hydroxide/Mg Hydroxide (Magnesium Hydrox/Alum Hydrox 30 Ml Oral.Susp) 30 ml PO Q4H PRN PRN Reason: Heartburn/Nausea Lactated Ringer's (Lr) 1,000 mls @ 100 mls/hr IVCONT .Q10H [facility] Last Admin: 06/14/23 09:12 Dose: 100 mls/hr Documented By: JEFFY Metronidazole (Flagyl) 500 mg in 100 mls @ 100 mls/hr IV Q12H [facility] Last Infusion: 06/14/23 10:21 Dose: Infused Documented By: JEFFY Levofloxacin (Levaquin) 500 mg in 100 mls @ 100 mls/hr IV Q24H [facility] Last Admin: 06/14/23 10:29 Dose: 100 mls/hr Documented By: JEFFY Magnesium Hydroxide (Milk Of Magnesia 30 Ml Oral.Susp) 30 ml PO DAILY PRN PRN Reason: Constipation Morphine Sulfate (Morphine Sulfate 2 Mg/Ml Cartridge) 2 mg IVPUSH Q3H PRN; Protocol PRN Reason: Pain, Severe (Pain Scale 7-10) Nicotine (Nicotine 21 Mg Patch.Td24) 21 mg TRANSDERMA DAILY [facility] Last Admin: 06/14/23 07:29 Dose: 21 mg Documented By: JEFFY Ondansetron HCl (Ondansetron Hcl 4 Mg/2 Ml Vial) 4 mg IVPUSH Q8H PRN PRN Reason: Nausea and Vomiting Oxycodone HCl (Oxycodone Hcl Immed Release 5 Mg Tablet) 10 mg PO Q4H PRN PRN Reason: Pain, Moderate(Pain Scale 4-6) Last Admin: 06/14/23 09:39 Dose: 10 mg Documented By: JEFFY Sodium Chloride (0.9 % Sodium Chloride Flush 3 Ml Syringe) 3 ml IVFLUSH [facility] Last Admin: 06/14/23 07:30 Dose: 3 ml Documented By: JEFFY Labs 06/15/23 05:15 06/15/23 05:15 Microbiology Microbiology Results: Microbiology 06/13/23 06:36 Blood Culture - Preliminary Blood - Venous No growth after 24 hours. 06/13/23 06:19 Blood Culture - Preliminary Blood - Venous No growth after 24 hours. Procedures Date of Service Date of Service: 06/16/23 Progress Note: A&P Assessment and plan (1) Colonic diverticular abscess: Status: Acute Assessment and Plan: I have reviewed his CT - this suggest persistence or recurrence of colonic diverticular abscess We will arrange for him to have a repeat CT drain I did tell him that he is likely to benefit from sigmoid resection down the line preferably when the inflammatory process has subsided He understands the technique of CT drain Continue IV antibiotics Exam very benign at this time He seems to understand the plan well Time Spent With Patient Time: Total time managing care of this patient today ____ minutes. Quality Stroke Does the patient have a stroke diagnosis?: No VTE Prior VTE?: No VTE Risk Level:: Surgical - low VTE Device Contraindication: N/A - Device Ordered VTE Drug Contraindication: N/A - Med Ordered
--- NOTE | 2023-06-14 14:19 | MHC.CLN ---
NUTRITION CONSULT FOR WEIGHT LOSS. REVIEW OF RECENT WEIGHT HX SHOWS -7.2% WEIGHT LOSS X ONE MONTH. 05/13/23 WEIGHT=71.1 KG. PATIENT HAS SURGERY FOR DIVERTICULAR ABSCESS DRAINAGE. CURRENT ADMISSION FOR ABSCESS/SURGERY. NPO STATUS. WEIGHT LOSS LIKELY RELATED TO HOSPITAL ADMISSION AND BOWEL SURGERY. FOLLOW UP FOR DIET ADVANCEMENT.
[2023-06-14] MEDS: Morphine Sulfate 2 MG/ML CARTRIDGE IVPUSH ×2 (15:23→18:35)
[2023-06-14 15:28] VITALS: BP 122/77; PULSE 57; RESP 16; TEMP 36.2; O2SAT 99
--- NOTE | 2023-06-14 15:48 | PM.EVENT ---
Event Note Date of Service: 06/14/23 Event Note: CT drain done earlier Patient tolerated procedure Currently says he is okay Good pain control Clear liquids for now, diet as tolerated Scanty drainage from drain at this time Abdomen soft Looks well IV antibiotics Time Spent With Patient Time: Total time managing care of this patient today ____ minutes.
[2023-06-14] MEDS: Acetaminophen 325 MG TABLET 650 MG PO ×2 (16:04→23:59)
--- NOTE | 2023-06-14 16:34 | PC.NURSE ---
1600 pt voided 200 mls of pink colored urine with small blood clots . pt encouraged to drink water . made aware . no new orders
[2023-06-14 19:22] VITALS: BP 142/79; PULSE 55; RESP 16; TEMP 36.6; O2SAT 96
[2023-06-15 03:03] VITALS: BP 135/76; PULSE 60; RESP 16; TEMP 36.3; O2SAT 96
[2023-06-15 05:20] LABS: MANUAL DIFF FLAG NO
[2023-06-15] MEDS: oxyCODONE HCl Immed Release 5 MG TABLET 10 MG PO ×4 (05:25→18:10)
[2023-06-15 05:26] LABS: Basophils Absolute Auto 0.1 X10*3/uL (0.0-0.2); Eosinophils Absolute Auto 0.3 X10*3/uL (0.0-0.4); Eosinophils Percent Auto 4.3 % (0-4); Hematocrit 38.2 % (42.0-52.0); Hemoglobin 12.9 g/dl (14.0-18.0); Imm Gran Abs Auto 0.03 X10*3/uL (0.00-0.03); Imm Gran Pct Auto 0.4 % (0.0-0.4); Lymphocytes Absolute Auto 1.7 X10*3/uL (1.2-4.9); Lymphocytes Percent Auto 23.2 % (20-40); Mean Corpuscular HGB Conc 33.8 g/dl (31.0-36.0); Mean Corpuscular Hemoglobin 28.9 pg (27.0-33.0); Mean Corpuscular Volume 85.7 fL (80.0-98.0); Mean Platelet Volume 7.4 fL (9.4-12.4); Monocytes Absolute Auto 0.6 X10*3/uL (0.1-1.2); Monocytes Percent Auto 7.8 % (2-11); Neutrophils Absolute Auto 4.5 x10*3/uL (2.0-8.3); Neutrophils Percent Auto 63.3 % (45-73); Platelet Count 454 X10*3/uL (160-400); Red Blood Count 4.46 X10*6/uL (4.60-5.80); Red Cell Distribution Width 13.4 % (11.0-16.0); White Blood Count 7.1 X10*3/uL (4.8-10.8)
[2023-06-15 05:38] LABS: Anion Gap 12 (12-20); Blood Urea Nitrogen 5 mg/dL (9-16); Calcium 9.3 mg/dL (8.4-10.2); Carbon Dioxide 28 mmol/L (22-29); Chloride 107 mmol/L (96-108); Creatinine Clr Calc Pharmacy 106.3; Estimated Glomerular Filt Rate > 60; Glucose Random 85 mg/dL (60-115); Potassium 3.9 mmol/L (3.3-5.1); Sodium 143 mmol/L (135-145)
[2023-06-15 07:06] VITALS: BP 146/78; PULSE 61; RESP 16; TEMP 36.5; O2SAT 98
[2023-06-15] MEDS: metroNIDAZOLE/NS 500 MG/100 ML PIGGYBACK 100 MG IV ×2 (07:34→20:40)
[2023-06-15] MEDS: Nicotine 21 MG PATCH.TD24 TRANSDERMA (07:34)
[2023-06-15] MEDS: Morphine Sulfate 2 MG/ML CARTRIDGE IVPUSH ×4 (07:42→20:40)
[2023-06-15] MEDS: levoFLOXacin/D5W 500 MG/100 ML PIGGYBACK 100 MG IV (09:35)
--- NOTE | 2023-06-15 10:06 | P.PNGS_ITS ---
Subjective Subjective Date of Service: 06/15/23 Interval history: Some pain on new drain site Had some blood in his urine yesterday but this has resolved Denies dysuria Physical Exam 2 Vital Signs: Vital Signs: Last Vital Signs Temp 97.7 F 06/15/23 07:06 Pulse 61 06/15/23 07:06 Resp 16 06/15/23 07:06 BP 146/78 H 06/15/23 07:06 Pulse Ox 98 06/15/23 07:06 O2 Del Method Room Air 06/15/23 07:06 BMI result Body Mass Index 23.5 Const: Other: Looks well General: comfortable and no acute distress Resp: Effort & Inspection: normal respiratory effort Cardio: Rate: regular rate GI: Palpation (GI): Soft to palpation, not firm, Tenderness to palpation present (GI) (Around drain site) and no guarding Objective Data Active Medications Acetaminophen (Acetaminophen 325 Mg Tablet) 650 mg PO Q6H PRN PRN Reason: Pain, Mild (Pain Scale 1-3) Last Admin: 06/14/23 23:59 Dose: 650 mg Documented By: MORENO Al Hydroxide/Mg Hydroxide (Magnesium Hydrox/Alum Hydrox 30 Ml Oral.Susp) 30 ml PO Q4H PRN PRN Reason: Heartburn/Nausea Lactated Ringer's (Lr) 1,000 mls @ 100 mls/hr IVCONT .Q10H [facility] Last Infusion: 06/15/23 09:15 Dose: Infused Documented By: JEFFY Metronidazole (Flagyl) 500 mg in 100 mls @ 100 mls/hr IV Q12H [facility] Last Infusion: 06/15/23 09:17 Dose: Infused Documented By: JEFFY Levofloxacin (Levaquin) 500 mg in 100 mls @ 100 mls/hr IV Q24H [facility] Last Admin: 06/15/23 09:35 Dose: 100 mls/hr Documented By: JEFFY Magnesium Hydroxide (Milk Of Magnesia 30 Ml Oral.Susp) 30 ml PO DAILY PRN PRN Reason: Constipation Morphine Sulfate (Morphine Sulfate 2 Mg/Ml Cartridge) 2 mg IVPUSH Q3H PRN; Protocol PRN Reason: Pain, Severe (Pain Scale 7-10) Last Admin: 06/15/23 07:42 Dose: 2 mg Documented By: JEFFY Nicotine (Nicotine 21 Mg Patch.Td24) 21 mg TRANSDERMA DAILY [facility] Last Admin: 06/15/23 07:34 Dose: 21 mg Documented By: JEFFY Ondansetron HCl (Ondansetron Hcl 4 Mg/2 Ml Vial) 4 mg IVPUSH Q8H PRN PRN Reason: Nausea and Vomiting Oxycodone HCl (Oxycodone Hcl Immed Release 5 Mg Tablet) 10 mg PO Q4H PRN PRN Reason: Pain, Moderate(Pain Scale 4-6) Last Admin: 06/15/23 09:34 Dose: 10 mg Documented By: JEFFY Sodium Chloride (0.9 % Sodium Chloride Flush 3 Ml Syringe) 3 ml IVFLUSH QSHIFT [facility] Last Admin: 06/15/23 06:27 Dose: Not Given Documented By: JEFFY Non-Admin Reason: IV Running Labs 06/15/23 05:15 06/15/23 05:15 Labs: Laboratory Results - last 24 hr 06/15/23 05:15 MCV 85.7 MCH 28.9 MCHC 33.8 RDW 13.4 Plt Count 454 H MPV 7.4 L Immature Gran % (Auto) 0.4 Neut % (Auto) 63.3 Lymph % (Auto) 23.2 [place] % (Auto) 7.8 Eos % (Auto) 4.3 H Baso % (Auto) 1.0 Lymph # (Auto) 1.7 [place] # (Auto) 0.6 Eos # (Auto) 0.3 Baso # (Auto) 0.1 Abs Immat Gran (auto) 0.03 Absolute Neuts (auto) 4.5 Absolute Nucleated RBC 0.000 Nucleated RBC % (auto) 0.0 Anion Gap 12 Estim Creat Clear Calc 106.3 Estimated GFR > 60 Random Glucose 85 Calcium 9.3 Microbiology Microbiology Results: Microbiology 06/14/23 14:45 Gram Stain - Final Abscess Intra-abdominal Routine Culture - Preliminary No growth to date. 06/13/23 06:36 Blood Culture - Preliminary Blood - Venous No growth after 48 hours. 06/13/23 06:19 Blood Culture - Preliminary Blood - Venous No growth after 48 hours. Procedures Date of Service Date of Service: 06/15/23 Progress Note: A&P Assessment and plan (1) Colonic diverticular abscess: Status: Acute Assessment and Plan: New drain placed yesterday He looks well Abdomen soft and benign On regular diet Labs okay Possible discharge home tomorrow on antibiotics Time Spent With Patient Time: Total time managing care of this patient today ____ minutes. Quality Stroke Does the patient have a stroke diagnosis?: No VTE Prior VTE?: No VTE Risk Level:: Surgical - low VTE Device Contraindication: N/A - Device Ordered VTE Drug Contraindication: N/A - Med Ordered
--- NOTE | 2023-06-15 12:53 | MHC.CLN ---
F/U DIET ADVANCED TO REGULAR. INTAKE 75% X 1 MEAL; 100% X 2 MEALS. NO ADDITIONAL NUTRITION INTERVENTIONS AT THIS TIME.
[2023-06-15 15:35] VITALS: BP 134/77; PULSE 73; RESP 18; TEMP 36.5; O2SAT 96
--- NOTE | 2023-06-15 15:35 | MHC.CM.PN ---
EMR REVIEWED, PT CONTINUES WITH SOME PAIN AT DRAIN SITE AND IS NOT YET MEDICALLY CLEARED FOR DC. CM WILL CONTINUE TO FOLLOW OR ANY CHANGE IN DC PLAN.
[2023-06-15] MEDS: 0.9 % Sodium Chloride Flush 3 ML SYRINGE IVFLUSH ×2 (16:55→20:40)
--- NOTE | 2023-06-15 17:38 | HO.POSTANES ---
Post Anesthesia Evaluation Post Anesthesia Evaluation Date of Service: 06/15/23 Vital Signs: Vital Signs Temp Pulse Resp BP Pulse Ox O2 Del Method 06/15/23 15:35 97.7 F 73 18 134/77 96 Room Air 06/15/23 07:06 97.7 F 61 16 146/78 H 98 Room Air
[2023-06-15 19:20] VITALS: BP 136/78; PULSE 69; RESP 18; TEMP 36.3; O2SAT 96
[2023-06-16] MEDS: oxyCODONE HCl Immed Release 5 MG TABLET 10 MG PO ×2 (03:03→07:13)
[2023-06-16 03:09] VITALS: BP 132/87; PULSE 66; RESP 18; TEMP 36.2; O2SAT 97
[2023-06-16] MEDS: metroNIDAZOLE/NS 500 MG/100 ML PIGGYBACK 100 MG IV (07:13)
[2023-06-16] MEDS: 0.9 % Sodium Chloride Flush 3 ML SYRINGE IVFLUSH (07:13)
[2023-06-16] MEDS: Nicotine 21 MG PATCH.TD24 TRANSDERMA (07:13)
[2023-06-16 07:38] VITALS: BP 141/81; PULSE 70; RESP 18; TEMP 36.7; O2SAT 98
--- NOTE | 2023-06-16 07:41 | PM.PNGS ---
Subjective Subjective Date of Service: 06/16/23 <Hyun Naylor PA-C - Last Filed: 06/16/23 07:45> 06/16/23 <Victoriano Sherman MD - Last Filed: 06/16/23 08:17> Interval history: Feeling a little better this morning. Mild pain. Tolerating solid diet. Had some discomfort with bowel movements. <Hyun Naylor PA-C - Last Filed: 06/16/23 07:45> Physical Exam Vital Signs: Vital Signs: Last Vital Signs Temp 97.2 F 06/16/23 03:09 Pulse 66 06/16/23 03:09 Resp 18 06/16/23 03:09 BP 132/87 06/16/23 03:09 Pulse Ox 97 06/16/23 03:09 O2 Del Method Room Air 06/16/23 03:09 BMI result Body Mass Index 23.5 <Hyun Naylor PA-C - Last Filed: 06/16/23 07:45> Const: General: comfortable, no acute distress and alert <Hyun Naylor PA-C - Last Filed: 06/16/23 07:45> Orientation/consciousness: patient oriented x3 <Hyun Naylor PA-C - Last Filed: 06/16/23 07:45> Resp: Effort & Inspection: normal respiratory effort <Hyun Naylor PA-C - Last Filed: 06/16/23 07:45> GI: Other: drain in place with mild tenderness, some persistent induration at old drain site drain with ?dark tannish output <Hyun Naylor PA-C - Last Filed: 06/16/23 07:45> Inspection: No distended <DAMON Loredo Last Filed: 06/16/23 07:45> Palpation (GI): Soft to palpation, Tenderness to palpation present (GI) (mild at drain ), no guarding and not rigid <DAMON Loredo Last Filed: 06/16/23 07:45> Skin: General skin exam: no rashes or lesions noted <DAMON Loredo Last Filed: 06/16/23 07:45> Neuro: General: patient oriented x3 <Hyun Naylor PA-C - Last Filed: 06/16/23 07:45> Objective Data Active Medications Acetaminophen (Acetaminophen 325 Mg Tablet) 650 mg PO Q6H PRN PRN Reason: Pain, Mild (Pain Scale 1-3) Last Admin: 06/14/23 23:59 Dose: 650 mg Documented By: MORENO Al Hydroxide/Mg Hydroxide (Magnesium Hydrox/Alum Hydrox 30 Ml Oral.Susp) 30 ml PO Q4H PRN PRN Reason: Heartburn/Nausea Metronidazole (Flagyl) 500 mg in 100 mls @ 100 mls/hr IV Q12H [facility] Last Admin: 06/16/23 07:13 Dose: 100 mls/hr Documented By: JEFFY Levofloxacin (Levaquin) 500 mg in 100 mls @ 100 mls/hr IV Q24H [facility] Last Infusion: 06/15/23 10:37 Dose: Infused Documented By: JEFFY Magnesium Hydroxide (Milk Of Magnesia 30 Ml Oral.Susp) 30 ml PO DAILY PRN PRN Reason: Constipation Morphine Sulfate (Morphine Sulfate 2 Mg/Ml Cartridge) 2 mg IVPUSH Q3H PRN; Protocol PRN Reason: Pain, Severe (Pain Scale 7-10) Last Admin: 06/15/23 20:40 Dose: 2 mg Documented By: MORENO Nicotine (Nicotine 21 Mg Patch.Td24) 21 mg TRANSDERMA DAILY [facility] Last Admin: 06/16/23 07:13 Dose: 21 mg Documented By: JEFFY Ondansetron HCl (Ondansetron Hcl 4 Mg/2 Ml Vial) 4 mg IVPUSH Q8H PRN PRN Reason: Nausea and Vomiting Oxycodone HCl (Oxycodone Hcl Immed Release 5 Mg Tablet) 10 mg PO Q4H PRN PRN Reason: Pain, Moderate(Pain Scale 4-6) Last Admin: 06/16/23 07:13 Dose: 10 mg Documented By: JEFFY Sodium Chloride (0.9 % Sodium Chloride Flush 3 Ml Syringe) [facility] Last Admin: 06/16/23 07:13 Dose: 3 ml Documented By: JEFFY <Hyun Naylor PA-C - Last Filed: 06/16/23 07:45> Labs CBC & Chem 7: 06/15/23 05:15 06/15/23 05:15 <Hyun Naylor PA-C - Last Filed: 06/16/23 07:45> Microbiology Microbiology Results: Microbiology 06/14/23 14:45 Gram Stain - Final Abscess Intra-abdominal Routine Culture - Preliminary No growth to date. 06/13/23 06:36 Blood Culture - Preliminary Blood - Venous No growth after 48 hours. 06/13/23 06:19 Blood Culture - Preliminary Blood - Venous No growth after 48 hours. <Hyun Naylor PA-C - Last Filed: 06/16/23 07:45> Procedures Date of Service Date of Service: 06/16/23 <Hyun Naylor PA-C - Last Filed: 06/16/23 07:45> 06/16/23 <Victoriano Sherman MD - Last Filed: 06/16/23 08:17> Progress Note: A&P Assessment and plan (1) Colonic diverticular abscess: Status: Acute <Hyun Naylor PA-C - Last Filed: 06/16/23 07:45> Assessment and Plan: looks well says he is comfortable good GI function abd soft and benign drain in place - no signficant output ok to dc home PO abx course ffup instructions seen and examined independently <Victoriano Sherman MD - Last Filed: 06/16/23 08:17> Assessment and Plan: Tolerating diet Drain in place with tannish output, changed to bulb for dc Will reassess later today for dc to home with PO abx hot packs to old drain site colace for bowel regimen <Hyun Naylor PA-C - Last Filed: 06/16/23 07:45> Time Spent With Patient Time: Total time managing care of this patient today ____ minutes. <Hyun Naylor PA-C - Last Filed: 06/16/23 07:45> Quality Stroke Does the patient have a stroke diagnosis?: No <DAMON Loredo Last Filed: 06/16/23 07:45> VTE Prior VTE?: No <Hyun Naylor PA-C - Last Filed: 06/16/23 07:45> VTE Risk Level:: Surgical - low <Hyun Naylor PA-C - Last Filed: 06/16/23 07:45> VTE Device Contraindication: N/A - Device Ordered <Hyun Naylor PA-C - Last Filed: 06/16/23 07:45> VTE Drug Contraindication: N/A - Med Ordered <Hyun Naylor PA-C - Last Filed: 06/16/23 07:45>
--- NOTE | 2023-06-16 08:28 | MHC.CM.PN ---
EMR reviewed. Patient is medically cleared for dc home, self care. Drain in place. Patient states he has received education from RN and feels comfortable managing independently. Has managed in the past. at bedside to transport home.
--- NOTE | 2023-06-16 13:45 | PM.DS ---
DS: Providers Provider Date of Service: 06/16/23 Date of admission: 06/13/23 10:40 Primary care physician: Lorenzo Burns MD Attending physician on admission: Kristopher Elam Attending physician on discharge: Victoriano Sherman DS: Diagnosis Discharge Diagnosis (1) Colonic diverticular abscess: Status: Acute DS: Summary Hospital Course Hospital Course: HPI AT ADMISSION: Lucio Manzano is a 57 year old male who was recently hospitalized under the care of Dr. Sherman for complicated sigmoid diverticulitis. He underwent interventional radiologic drainage of pelvic abscess. Patient eventually had marked improvement of his symptoms, was advanced to regular diet, was ambulating minimal wound difficulty and was discharged home. Had drain removed as an outpatient. He breathes presents now because of purulent drainage from his drain site in the suprapubic area and marked redness/cellulitis of the area as well. Patient underwent repeat CT scan demonstrating although improvement nonetheless still significant diverticulitis with residual abscess in the pelvis. HOSPITAL COURSE: He was admitted to the surgical service for further treatment. He was started on IV levaquin and flagyl. He was kept NPO, on IVF and repeat CT drainage was arranged. It was also recommended to proceed with sigmoid resection down the line preferably when the inflammatory process has subsided. CT guided drainage was performed with 8 Danish pigtail catheter placed on 06/14/23. He tolerated the procedure well. His diet was advanced following this. He felt improved with less abdominal pain. His WBC count normalized. His drain continued to have purulent drainage and was therefore left in place. On the day of discharge, he was tolerating a solid diet without worsening pain and had good GI function. His abdomen was benign and vitals were stable. He was discharged to home on 06/16/23 on a PO course of bactrim/flagyl with his pigtail drain in place. He is to follow up in the office in 2 weeks. Status at Discharge Functional status at discharge: independent ambulation Time Attestation Discharge coordination time: Less than 30 minutes Quality: Safe Use of Opioids Does Pt have an Active Cancer Diagnosis on the Problem List?: No Quality: Stroke Does the patient have a stroke diagnosis?: No Physical Exam Vital Signs: Vital Signs: Last Vital Signs Temp 98.0 F 06/16/23 07:38 Pulse 70 06/16/23 07:38 Resp 18 06/16/23 07:38 BP 141/81 H 06/16/23 07:38 Pulse Ox 98 06/16/23 07:38 O2 Del Method Room Air 06/16/23 07:38 BMI result Body Mass Index 23.5 Const: General: comfortable, no acute distress and alert Orientation/consciousness: patient oriented x3 Resp: Effort & Inspection: normal respiratory effort GI: Other: drain with tannish output Inspection: No distended Palpation (GI): Soft to palpation, Tenderness to palpation present (GI) (mild at drain site ), no guarding and not rigid Skin: General skin exam: no rashes or lesions noted Neuro: General: patient oriented x3 DS: Data Data Completed and Pending Completed studies during hospitalization [Text1]: Procedures Drainage of Sigmoid Colon with Drainage Device, Percutaneous Approach (05/13/23) Labs on day of discharge: Preliminary micro results at discharge 06/14/23 14:45 Routine Culture - Preliminary Abscess Intra-abdominal No growth to date. 06/13/23 06:36 Blood Culture - Preliminary Blood - Venous No growth after 48 hours. 06/13/23 06:19 Blood Culture - Preliminary Blood - Venous No growth after 48 hours. Discharge Plan Discharge Anticipated Discharge Date/Time: 06/16/23 10:21 Patient Disposition: Home, Self-Care Discharge Diagnosis: diverticulitis with abscess Referrals: Victoriano Sherman MD [Physician] - 1 Week Lorenzo Burns MD [Primary Care Provider] - 1 Week Discharge Medications: New sulfamethoxazole-trimethoprim [Bactrim DS] 800-160 mg tablet 1 tab PO BID Qty: 10 0RF metronidazole 500 mg tablet 500 mg PO BID Qty: 10 0RF oxycodone 5 mg tablet 5 mg PO Q4H PRN (Reason: pain (scale score 7-10)) Qty: 20 0RF Rx Instructions: Partial Fill upon patient request. docusate sodium [Colace] 100 mg capsule 100 mg PO BID PRN (Reason: constipation) Qty: 30 0RF Continued acetaminophen [Tylenol Extra Strength] 500 mg tablet 500 mg PO Q6H PRN (Reason: Pain (Scale Score 1-3)) Discharge Orders: Discharge Order (Routine); Ordered 06/16/23 Ordered By: Victoriano Sherman Diet: Advance to usual diet Activity on Discharge: As tolerated Stand Alone Forms: Patient Portal Discharge page Activity Restrictions/Additional Instructions: Follow up in office in a week. ([phone]) Drain care: empty bulb BID and as needed. Dressing change every other day. Call Your Doctor If: ? ? -Your temperature exceeds 101.5? F? ? ? -You experience excessive pain or swelling ? ? -You have an unexpected reaction to medication ? ? -You experience continued vomiting/nausea Care Plan Goals: Return to baseline health and resume normal activities. Eventual drain removal. Health Concerns: diverticulitis with abscess Plan of Treatment: IR drainage antibiotics home with drain in place f/u in office eventual sigmoid resection Assessment: Improved Discharge Date/Time: 06/16/23 09:32
== END 2023-06-16 09:32 | disposition home or self-care (01) | DRG 229 ==
LOC: HO.ED 09:42 → HO.EDOVER 10:58 → HO.S3 11:56
PROVIDERS: Emergency Medicine; Physician Assistant Surgical; Surgery; Admitting Provider Surgery; Emergency Provider Emergency Medicine; PCP Internal Medicine; Visit Provider Surgery
DX: K57.20 Diverticulitis of large intestine with perforation and abscess without bleeding (principal); F17.210 Nicotine dependence, cigarettes, uncomplicated; Z71.6 Tobacco abuse counseling; Z79.899 Other long term (current) drug therapy
CPT/HCPCS: 36415; 74177; 75989; 80048; 80053; 83605; 85025; 87040; 87070; 87205; 99285; C1729; C1894; J0696; J1170; J1836; J1885; J1956; J2270; J3010; J7120; Q9967

== ENCOUNTER 2023-06-13 10:40 | Outpatient (BNV) | payer OTHER, SELFPAY | END 2023-06-14 13:53 | PROVIDERS: Admitting Provider Surgery; Emergency Provider Emergency Medicine; PCP Internal Medicine; Visit Provider Radiology Vascular & Interventional Radiology | DX: K65.1 Peritoneal abscess (principal) | CPT/HCPCS: 49405 ==

== ENCOUNTER → 2023-06-13 10:40 | Outpatient (BNV) | payer OTHER, SELFPAY | PROVIDERS: Admitting Provider Surgery; Emergency Provider Emergency Medicine; PCP Internal Medicine; Visit Provider Surgery | DX: K57.20 Diverticulitis of large intestine with perforation and abscess without bleeding (principal) | CPT/HCPCS: 99222; 99232; 99238; 99499 ==

== ENCOUNTER 2023-06-23 08:56 | Outpatient (AMB) | payer OTHER, SELFPAY ==
--- NOTE | 2023-06-23 09:09 | A.OFFVIS_ITS ---
Intake Vital Signs 06/23/23 09:17 Weight 147 lb BP 140/93 H Blood Pressure Location Lt brachial Position Standing Pulse 100 Intake Visit Reasons: S/P IR drain, 1 mo follow up Intake Note: This patient presents for a one month follow-up assessment status post IR drain. Pt c/o; reports was in the ER on 06/16/23, reports pain, reports output of drain <5, requesting Rx refill for Oxycodone for pain. Bed And Breakfast Cook Required: No Accompanied by: Self / Same As Patient Allergies codeine [CODEINE] Allergy (Unknown, Verified 06/23/23 09:12) NAUSEA & VOMITING penicillin V Allergy (Unknown, Verified 06/23/23 09:12) Unknown Penicillins [PENICILLINS] Allergy (Unknown, Verified 06/23/23 09:12) HIVES trazodone Allergy (Unknown, Verified 06/23/23 09:12) Unknown Codeine Sulfate Allergy (Unknown, Uncoded 06/23/23 09:12) Unknown HPI S/P IR drain, 1 mo follow up HPI Details He was admitted to the hospital again last 06/13/2023 because of drainage from the old drain site along with some abdominal pain. His CAT scan then showed residual abscess cavity although much smaller than previously. He underwent a repeat IR drain. There was minimal pus removed Currently he feels well. He denies any significant pain. He has good oral intake. He denies any fever or chills. He says still has some occasional spasms on the area near the drain site. [facility], [facility] Medical History Colonic diverticular abscess Surgical History H/O hernia repair Social History Household Members: Significant Other Housing: Apartment Do you presently have visiting nurse or other home services: No Alcohol intake: current Alcohol intake frequency: holidays/special occasions only Alcohol type: beer, wine and hard liquor Patient Tobacco Use Status: Current everyday Tobacco user Tobacco use type: Cigarette Cigarette Packs Per Day: 0.5 Cigarettes Per Day: 15 e-Cigarette/Vaping Use: Never Used Second Hand Smoke Exposure: Yes Substance Use Type: Marijuana service: No Current occupational status: unemployed Cognitive needs: No Hearing needs: No Vision needs: No Review of Systems Const Denies chills and Denies fever(s) Card Denies chest pain, Denies dyspnea and Denies dyspnea on exertion Resp Denies cough, Denies dyspnea and Denies dyspnea on exertion GI Denies hematochezia and Denies change in bowel habits Denies hematuria and Denies difficulty urinating Musc Denies back pain and Denies limited range of motion Neuro Denies focal weakness and Denies convulsions Psych Denies depression and Denies mood swings Physical Exam Const Other: Looks well General: comfortable and no acute distress Resp Effort & Inspection: normal respiratory effort GI Other: IR drain in place on the suprapubic area to the left, no significant drainage Palpation (GI): Soft to palpation, not firm, nontender and no guarding Assessment & Plan Assessment & Plan (1) Colonic diverticular abscess: Code(s): K57.20 - Diverticulitis of large intestine with perforation and abscess without bleeding Plan: Status post repeat IR drain. I did not pull out the drain today although there was actually practically significant output. This is the 2nd time he had IR drain so I am going to schedule him for a repeat CT scan and will see him in the office thereafter once this is reviewed. He understands the plan and is comfortable. Orders: Orders CT abdomen pelvis w IV con Today K57.20 - Diverticulitis of large intestine with perforation and abscess without bleeding Coding Level of Care Code Est Pt Level 3 (18635) Diagnoses Colonic diverticular abscess K57.20
[2023-06-23 09:17] VITALS: BP 140/93; PULSE 100
== END 2023-06-23 09:28 | disposition home or self-care (01) ==
PROVIDERS: PCP Internal Medicine; Visit Provider Surgery
DX: K57.20 Diverticulitis of large intestine with perforation and abscess without bleeding (principal)
CPT/HCPCS: 99213

== ENCOUNTER → 2023-06-23 08:56 | Outpatient (BNVA) | payer OTHER, SELFPAY | PROVIDERS: PCP Internal Medicine; Visit Provider Surgery | DX: K57.20 Diverticulitis of large intestine with perforation and abscess without bleeding (principal) | CPT/HCPCS: 99212 ==

== ENCOUNTER 2023-06-30 11:17 | Outpatient (REF) | payer OTHER, SELFPAY ==
--- NOTE | ~2023-06-30 | CT_ITS ---
EXAMINATION: CT ABDOMEN AND PELVIS WITH CONTRAST CLINICAL INFORMATION: Diverticulitis of large intestine with perforation and abscess. COMPARISON: CT abdomen pelvis 06/13/[address] guided drainage 06/14/2023. TECHNIQUE: Multidetector volumetric images were obtained from the superior aspect of the liver through the pubic symphysis following administration 85 mL of Omnipaque 350 intravenous contrast. Sagittal and coronal reformatted images were obtained on the technologist's workstation. Oral contrast: No This CT examination was performed using dose optimization techniques as appropriate, variously including the following: *Automated exposure control *Adjustment of mA and/or kV according to patient size (this includes techniques or standardized protocols for targeted exams where dose is matched to indication/reason for exam; i.e. extremities or head) *Use of iterative reconstruction technique DLP: 352 mGy-cm FINDINGS: LUNG BASES: Some mild emphysematous changes are present at the lung bases. A calcified granuloma is seen in the right costophrenic sulcus. LIVER, GALLBLADDER, AND BILIARY TREE: The liver is normal in size, shape, and attenuation. No focal hepatic lesion or biliary ductal dilatation is present. The gallbladder is unremarkable with no evidence of radiopaque gallstones, gallbladder wall thickening, or obvious pericholecystic inflammatory changes. PANCREAS: Unremarkable. SPLEEN: Unremarkable. ADRENAL GLANDS: Unremarkable. KIDNEYS AND URETERS: The kidneys are normal in size, shape, and attenuation. No hydronephrosis, hydroureter, or calculi seen. No perinephric stranding. BLADDER: Nearly empty and symmetrically thick walled. PERITONEUM: A drainage catheter is present in the left lower quadrant in the previously seen collection between the dome of the bladder and sigmoid colon. No significant collection remains. GASTROINTESTINAL TRACT: Diverticular changes are present in the colon; please see discussion above regarding perisigmoid abscess. The small and large bowel are otherwise unremarkable. The appendix is not seen but there is no evidence of appendicitis. ABDOMINAL WALL: There has been prior mesh abdominal wall hernia repair. An abscess drainage catheter traverses the hernia mesh. No evidence of a hernia at this time. LYMPH NODES: No retroperitoneal lymphadenopathy. VASCULAR: Calcific atherosclerotic changes are present in the aorta and iliac vessels. There is no evidence of an abdominal aortic aneurysm. PELVIC VISCERA: Prostate mildly prominent. Seminal vesicles appear normal. OSSEOUS STRUCTURES: Degenerative changes are present in the spine most prominent at L4-L5. No bony destructive lesions. CT/CT abdomen pelvis w IV con IMPRESSION: 1. No significant residual abscess is seen in the left lower quadrant. 2. Incidental note made of mild emphysema, colonic diverticulosis, calcified pulmonary granuloma, mild BPH and degenerative changes in the spine. Fleischner guidelines were followed.
[2023-06-30] MEDS: iohexoL 350 MG/ML 100 ML INFUS..BTL IV (11:38)
== END 2023-06-30 11:18 | disposition home or self-care (01) ==
LOC: HO.CT 11:17
PROVIDERS: PCP Internal Medicine; Visit Provider Surgery
DX: K57.20 Diverticulitis of large intestine with perforation and abscess without bleeding (principal)
CPT/HCPCS: 74177; Q9967

== ENCOUNTER 2023-07-11 10:38 | Outpatient (AMB) | payer OTHER, SELFPAY ==
--- NOTE | 2023-07-11 11:16 | A.OFFVIS_ITS ---
Intake Vital Signs 07/11/23 11:25 Height 5 ft 6 in Weight 156 lb 2 oz BMI 25.2 BP 161/81 H Blood Pressure Location Lt brachial Position Sitting Pulse 62 Intake Visit Reasons: Colonic diverticular abscess, CT results Intake Note: Patient is seen in office for CT scan results, post repeat IR drain.. Pt c/o: admits to burning pain in the area, denies redness, swelling, has no output from the drains, eating well, normal bm Seo Consultant Required: No Accompanied by: Family/Other Allergies codeine [CODEINE] Allergy (Unknown, Verified 07/11/23 11:23) NAUSEA & VOMITING penicillin V Allergy (Unknown, Verified 07/11/23 11:23) Unknown Penicillins [PENICILLINS] Allergy (Unknown, Verified 07/11/23 11:23) HIVES trazodone Allergy (Unknown, Verified 07/11/23 11:23) Unknown Codeine Sulfate Allergy (Unknown, Uncoded 07/11/23 11:23) Unknown Medication List - Last Reconciled 07/11/23 by Victoriano Sherman MD acetaminophen (Tylenol Extra Strength) 500 mg PO Q6H PRN docusate sodium (Colace) 100 mg PO BID PRN metronidazole 500 mg PO BID oxycodone 5 mg PO Q4H PRN sulfamethoxazole-trimethoprim 800-160 mg (Bactrim DS) 1 tab PO BID HPI Colonic diverticular abscess, CT results HPI Details He is here for follow-up for his colonic diverticular abscess. He had repeat IR drain on 06/14/2023. I repeated this CT scan last week and this does not reveal any residual collection. He feels well overall. He denies any pain. He has good oral intake. His drain is still in place and he says there has been practically no output for over a week now. [facility] Medical History Colonic diverticular abscess Surgical History H/O hernia repair Social History Household Members: Significant Other Housing: Apartment Do you presently have visiting nurse or other home services: No Alcohol intake: current Alcohol intake frequency: holidays/special occasions only Alcohol type: beer, wine and hard liquor Patient Tobacco Use Status: Current everyday Tobacco user Tobacco use type: Cigarette Cigarette Packs Per Day: 0.5 Cigarettes Per Day: 15 e-Cigarette/Vaping Use: Never Used Second Hand Smoke Exposure: Yes Substance Use Type: Marijuana service: No Current occupational status: unemployed Cognitive needs: No Hearing needs: No Vision needs: No Review of Systems Const Denies chills and Denies fever(s) Card Denies chest pain, Denies dyspnea and Denies dyspnea on exertion Resp Denies cough, Denies dyspnea and Denies dyspnea on exertion GI Denies hematochezia and Denies change in bowel habits Denies hematuria and Denies difficulty urinating Musc Denies back pain and Denies limited range of motion Neuro Denies focal weakness and Denies convulsions Psych Denies depression and Denies mood swings Physical Exam Vital Signs: Last Vital Signs Pulse 62 07/11/23 11:25 BP 161/81 H 07/11/23 11:25 BMI result Body Mass Index 25.2 Const General: comfortable and no acute distress Resp Effort & Inspection: normal respiratory effort Cardio Rate: regular rate GI Other: IR drain in place on the left, no output in the MICHAEL Palpation (GI): Soft to palpation, not firm, nontender and no guarding Assessment & Plan Assessment & Plan (1) Colonic diverticular abscess: Code(s): K57.20 - Diverticulitis of large intestine with perforation and abscess without bleeding Plan: Status post her drain. Follow-up CT scan does not reveal any residual collection so I removed the IR drain. This was intact He has had IR drains placed consecutively in view of this diverticular abscess so he wants to proceed with sigmoid resection. I will see him again in the office and we will schedule him for sigmoid resection. We will coordinate this with Dr. Taylor as the patient preferably wants to have his colonoscopy done day before his sigmoid resection so he does not have to do the bowel prep twice. Coding Level of Care Code Est Pt Level 3 (42176) Diagnoses Colonic diverticular abscess K57.20
[2023-07-11 11:25] VITALS: BP 161/81; PULSE 62; BMI 25.2
== END 2023-07-11 11:32 | disposition home or self-care (01) ==
PROVIDERS: PCP Internal Medicine; Visit Provider Surgery
DX: K57.20 Diverticulitis of large intestine with perforation and abscess without bleeding (principal)
CPT/HCPCS: 99213

== ENCOUNTER → 2023-07-11 11:14 | Outpatient (BNVA) | payer OTHER, SELFPAY | PROVIDERS: PCP Internal Medicine; Visit Provider Surgery | DX: K57.20 Diverticulitis of large intestine with perforation and abscess without bleeding (principal) | CPT/HCPCS: 99212 ==

== ENCOUNTER 2023-07-20 10:49 | Outpatient (AMB) | payer OTHER, SELFPAY ==
--- NOTE | 2023-07-20 11:03 | MHC.OFFVIS ---
Intake Intake Visit Reasons: discuss colonocopy/surgery Intake Note: This patient presents for an assessment to discuss colonoscopy/surgery. Pt c/o;reports no complaints at this time. Potato Bucker Required: No Accompanied by: Spouse Allergies codeine [CODEINE] Allergy (Unknown, Verified 07/20/23 11:07) NAUSEA & VOMITING penicillin V Allergy (Unknown, Verified 07/20/23 11:07) Unknown Penicillins [PENICILLINS] Allergy (Unknown, Verified 07/20/23 11:07) HIVES trazodone Allergy (Unknown, Verified 07/20/23 11:07) Unknown Codeine Sulfate Allergy (Unknown, Uncoded 07/20/23 11:07) Unknown HPI discuss colonocopy/surgery HPI Details 57-year-old male here for follow-up for his history of diverticular abscess. He was admitted to the hospital last April, because of a diverticular abscess. He had an IR drain at that time. He was on antibiotics but had to to be readmitted last May, because of a small articular abscess again. He had another IR drain procedure done at that time. I had pulled out his IR drains in the office In view of his complicated diverticular disease, he wants to proceed with sigmoid resection. He currently denies significant complaints except for severe anxiety. He has good oral intake. Has had no further episodes of diverticulitis. [facility] Medical History (Updated 07/20/23 @ 11:47 by Victoriano Sherman MD) Anxiety Colonic diverticular abscess Surgical History H/O hernia repair Social History Household Members: Significant Other Housing: Apartment Do you presently have visiting nurse or other home services: No Alcohol intake: current Alcohol intake frequency: holidays/special occasions only Alcohol type: beer, wine and hard liquor Patient Tobacco Use Status: Current everyday Tobacco user Tobacco use type: Cigarette Cigarette Packs Per Day: 0.5 Cigarettes Per Day: 15 e-Cigarette/Vaping Use: Never Used Second Hand Smoke Exposure: Yes Substance Use Type: Marijuana service: No Current occupational status: unemployed Cognitive needs: No Hearing needs: No Vision needs: No Review of Systems Const Denies chills and Denies fever(s) Card Denies chest pain, Denies dyspnea and Denies dyspnea on exertion Resp Denies cough, Denies dyspnea and Denies dyspnea on exertion GI Denies hematochezia and Denies change in bowel habits Denies hematuria and Denies difficulty urinating Musc Denies back pain and Denies limited range of motion Neuro Denies focal weakness and Denies convulsions Psych Denies depression and Denies mood swings Physical Exam Const General: comfortable and no acute distress Orientation/consciousness: patient oriented x3 Neck Neck: Yes no lymphadenopathy Resp Auscultation: clear to auscultation bilaterally Cardio Rhythm: regular rhythm GI Palpation (GI): Soft to palpation, nontender and no guarding Neuro General: patient oriented x3 Assessment & Plan Assessment & Plan (1) Colonic diverticular abscess: Code(s): K57.20 - Diverticulitis of large intestine with perforation and abscess without bleeding Plan: He has had 2 admissions for a diverticular abscess. He wants to proceed with sigmoid resection as she is concerned that he will continue to have this episodes in the future. I had a long discussion with him about the technique of hand assisted laparoscopic sigmoid resection, possible stoma and possible conversion to open. I discussed the risks including but not limited to bleeding, infections, staple line leak, injury to other organs including bowel and urinary tract, inherent risks of anesthesia, as well as the benefits and alternatives. I explained to him what to expect postoperatively He understands and wants to proceed He is to undergo colonoscopy Dr. Taylor as he is due and we will proceed with his colon resection the day after so he will only have 1 bowel prep. Medications: New lorazepam (Ativan) 0.5 mg PO DAILY PRN 20 tabs 0RF anxiety Coding Level of Care Code Est Pt Level 4 (01659) Diagnoses Colonic diverticular abscess K57.20
== END 2023-07-20 11:21 | disposition home or self-care (01) ==
PROVIDERS: PCP Internal Medicine; Visit Provider Surgery
DX: K57.20 Diverticulitis of large intestine with perforation and abscess without bleeding (principal)
CPT/HCPCS: 99214

== ENCOUNTER → 2023-07-20 10:49 | Outpatient (BNVA) | payer OTHER, SELFPAY | PROVIDERS: PCP Internal Medicine; Visit Provider Surgery | DX: K57.20 Diverticulitis of large intestine with perforation and abscess without bleeding (principal) | CPT/HCPCS: 99212 ==

== ENCOUNTER → 2023-09-27 13:16 | Outpatient (BNV) | payer OTHER, SELFPAY | PROVIDERS: Admitting Provider Surgery; PCP Internal Medicine; Visit Provider Internal Medicine Cardiovascular Disease | DX: R00.1 Bradycardia, unspecified (principal); Z01.810 Encounter for preprocedural cardiovascular examination | CPT/HCPCS: 93010 ==

== ENCOUNTER 2023-10-03 08:20 | Day surgery (SDC) | payer OTHER, SELFPAY ==
[2023-09-27 13:43] VITALS: BMI 25.2
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
[2023-10-03 08:52] VITALS: BP 166/96; PULSE 71; RESP 16; TEMP 36.3; O2SAT 98
[2023-10-03] MEDS: Lactated Ringers 1,000 ML 80 ML IVCONT (08:58)
[2023-10-03 11:04] VITALS: BP 127/85; PULSE 63; RESP 18; TEMP 36.2; O2SAT 97
--- NOTE | 2023-10-03 11:07 | PM.OP ---
Brief Operative Note Date of Service: 10/03/23 Pre-op diagnosis: Screening Post-op diagnosis: other (Rectal polyp, Diverticulosis) Procedure: Colonoscopy to the cecum and TI with bx/removal of polyp Surgeon: Wes Taylor MD Anesthesia: MAC Was an Heading Matcher And Assembler used for this Procedure?: No Estimated blood loss (mL): 2.0 Pathology: other (A. Rectal polyp) Condition: stable Disposition: PACU
[2023-10-03 11:18] VITALS: BP 137/85; PULSE 63; RESP 18; TEMP 36.5; O2SAT 99
--- NOTE | 2023-10-03 11:40 | OP_ITS ---
DATE OF SERVICE: 10/03/2023 SURGEON: Wes Taylor MD INDICATIONS: The patient presents for evaluation of colorectal cancer screening. Full consent has been obtained from him for this, including risks of bleeding and perforation. PREOPERATIVE DIAGNOSIS: Colorectal cancer screening. POSTOPERATIVE DIAGNOSIS: PROCEDURE PERFORMED: Colonoscopy to cecum and terminal ileum with biopsy and removal of polyp. ESTIMATED BLOOD LOSS: COMPLICATIONS: ANESTHESIA: Monitored anesthesia care. ASSISTANTS: SPECIMENS: POSTOPERATIVE DIAGNOSES: Colorectal cancer screening, diverticulosis, small rectal polyp, internal hemorrhoids. DESCRIPTION OF PROCEDURE: The patient was placed in the left lateral decubitus position. The digital rectal exam revealed no abnormalities. The Olympus video pediatric colonoscope was then entered into the rectum and advanced easily to the cecum. Once in the cecum, I did identify normal-appearing cecal pouch with appendiceal orifice and a normal-appearing ileocecal valve. The terminal ileum was cannulated and appeared normal. The scope was withdrawn back in the colon. The entire cecum and ileocecal valve appeared normal. The scope was slowly withdrawn assessing all mucosal surfaces carefully. Preparation was excellent. There was a moderate amount of diverticulosis with associated edema, some erythema, and thickening of the folds between the distal sigmoid colon and 40 cm. I did not visualize any sign of colitis nor angiodysplasias. In the proximal rectum, was an approximately 4 mm polyp, which was biopsied and completely removed with the cold biopsy forceps. The scope was retroflexed, visualizing internal hemorrhoids, but no other pathology. The rectal mucosa appeared normal. The scope was straightened and withdrawn from the patient. He tolerated the procedure well and was returned to the recovery area in stable condition. IMPRESSION: 1. Rectal polyp. 2. Diverticulosis. 3. Internal hemorrhoids. PLAN: The results of the biopsy will be checked. If this is a tubular adenoma, I would recommend a followup colonoscopy in 5 years. If it is only hyperplastic, I would recommend a followup colonoscopy in 10 years. He is scheduled for his sigmoid resection tomorrow with Dr. Sherman in regard to the previous history of complicated diverticulitis. He was advised to stay on clear liquids all day today and then be n.p.o. again after midnight for the surgery tomorrow. This has been discussed with his . MD KATIE Berry/ALEX / [phone] NICOLE
== END 2023-10-03 11:41 | disposition home or self-care (01) ==
PROVIDERS: PCP Internal Medicine; Visit Provider Internal Medicine
PROC: 0DJD8ZZ Inspection of Lower Intestinal Tract, Via Natural or Artificial Opening Endoscopic (ICD-10-PCS; CPT 45378; principal; 2023-10-03 11:50)
DX: Z12.11 Encounter for screening for malignant neoplasm of colon (principal); K62.1 Rectal polyp; K57.30 Diverticulosis of large intestine without perforation or abscess without bleeding; K64.8 Other hemorrhoids; Z87.19 Personal history of other diseases of the digestive system
CPT/HCPCS: 45380; 88305; J2704

== ENCOUNTER 2023-10-04 08:13 | Inpatient (IN) | payer OTHER, SELFPAY ==
--- NOTE | 2023-09-27 | ECG_ITS ---
Test Reason : preop Blood Pressure : / mmHG Vent. Rate : 057 BPM Atrial Rate : 057 BPM P-R Int : 164 ms QRS Dur : 088 ms QT Int : 436 ms P-R-T Axes : 071 057 040 degrees QTc Int : 424 ms Sinus bradycardia Otherwise normal ECG No previous ECGs available Referred By: Coni Colon Electronically Signed By:DENY BONE MD
[2023-09-27 12:37] VITALS: BP 153/87; PULSE 66; RESP 18; O2SAT 97; BMI 25.2
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
[2023-09-27 14:08] LABS: Hematocrit 42.7 % (42.0-52.0); Hemoglobin 14.5 g/dl (14.0-18.0); Mean Corpuscular Hemoglobin 29.7 pg (27.0-33.0); Mean Corpuscular Volume 87.5 fL (80.0-98.0); Mean Platelet Volume 8.5 fL (9.4-12.4); Platelet Count 318 X10*3/uL (160-400); Red Blood Count 4.88 X10*6/uL (4.60-5.80); Red Cell Distribution Width 13.8 % (11.0-16.0); White Blood Count 7.6 X10*3/uL (4.8-10.8)
[2023-09-27 14:31] LABS: Anion Gap 13 (12-20); Blood Urea Nitrogen 10 mg/dL (9-16); Calcium 10.4 mg/dL (8.4-10.2); Carbon Dioxide 27 mmol/L (22-29); Chloride 105 mmol/L (96-108); Creatinine Clr Calc Pharmacy 94.2; Estimated Glomerular Filt Rate > 60; Glucose Random 109 mg/dL (60-115); Potassium 4.6 mmol/L (3.3-5.1); Sodium 140 mmol/L (135-145)
[2023-10-04] VITALS (17 sets, daily range): BP systolic 126–184; BP diastolic 73–94; PULSE 59–100; RESP 14–22; TEMP 36.3–36.9; O2SAT 95–99
--- NOTE | 2023-10-04 07:30 | P.HPSUR_ITS ---
Pre-Procedural Eval Section A - 24 Hr Update-Section A only Date of Service: 10/04/23 Section B - Complete if H&P > 30 days Chief Complaint: Diverticulitis of large intestine with perforation Details of Present Illness: Has history of recurrent diverticulitis and abscess Relevant Family History (Specify if Yes): No Relevant Social History: None Present Medications: see Short Stay Collaborative assessment Medical History: No relevant PMH History of Previous Operations: No relevant previous surgery Allergies: Allergies Allergy/AdvReac Type Severity Reaction Status Date / Time codeine [CODEINE] Allergy Unknown Facial Verified 10/03/23 08:35 Swelling penicillin V Allergy Unknown Unknown Verified 10/03/23 08:35 Penicillins [PENICILLINS] Allergy Unknown HIVES Verified 10/03/23 08:35 quetiapine [From Seroquel] Allergy Agitated Verified 10/03/23 08:35 Review of Systems Sugical H&P ROS: Negative: Constitution, Cardiovascular, Respiratory, Neurological, Psychiatric, Hem-Onc, Allergic/Immunologic, Gastrointestinal, Gisele tourinary, Musculoskeletal, Integumentary, Endocrine and Eyes/Ears/Nose/Throat Exam Surgical H&P Exam: Normal: HEENT, Normal: Heart, Normal: Lungs, Normal: Extremities, Normal: Abdomen, Normal: Skin and Normal: Neurological Plan Diagnosis/Plan: Unchanged I have reviewed the history and physical and performed a pertinent physical examination on my patient. No changes have occurred unless specified. Time Spent With Patient Time: Total time managing care of this patient today ____ minutes.
[2023-10-04] MEDS: Midazolam HCl/PF 2 MG/2 ML VIAL IVPUSH (08:01)
[2023-10-04] MEDS: Lactated Ringers 1,000 ML 100 ML IVCONT ×3 (08:02→22:40)
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
--- NOTE | 2023-10-04 11:18 | W.PM.OPN ---
Operative Note Operative Note Date of Service: 10/04/23 Narrative: Preop diagnosis: Diverticular disease of the sigmoid, with history of abscess and recurrent diverticulitis Postop diagnosis: The same, with extensive adhesions Procedure: Hand assisted laparoscopic sigmoid resection, extensive lysis of adhesions, diverting loop ileostomy Surgeon: Victoriano Sherman MD assistant associate professor: LUCIA Naylor The patient is a 57-year-old male who has had previous multiple admissions for diverticular abscess and has had recurrent diverticulitis. He had wanted to proceed with resection in view of this. He understood the technique of the planned procedure as well as the risks, benefits, and alternatives. He had a colonoscopy yesterday showing diverticulosis, internal hemorrhoids and a small rectal polyp He was brought to the operating room and placed in modified lithotomy position under general anesthesia via endotracheal tube. The abdomen and the perineum were prepped and draped in the usual sterile fashion. A surgical time-out was done. The patient received Cefotan 2 g IV preoperatively I made a short low midline incision using blade 15. This carried down through the full-thickness of the skin and subcutaneous fat down to the fascia. The fascia was incised. The peritoneum was entered. We positioned the Rick wound retractor on this incision. We applied the GelPort and insufflated to a pressure of 15 mm Hg using a port through the GelPort. I used a 30 degree 10 mm scope and with laparoscopic visualization, I inserted a 5/12 mm port in the epigastric area. The camera was transferred to this epigastric port. We then positioned another 5/12 mm port likely quadrant small stab incision. I removed the port from the GelPort and face my hand through this. Laparoscopic visualization, we examined the pelvis. The sigmoid was seen. There was note of thick adhesions tethering the sigmoid to the anterior wall and the left pelvic wall. He had to do a lot of careful lysis of adhesions with the LigaSure to release the long segment of sigmoid from the sidewall and the anterior abdominal wall. We had to do a lot of careful dissection until we are able to release this. The patient was in a steep head-down position at this point. I was able to therefore visualize the left colon and the sigmoid all the way to the rectosigmoid. There was note of marked induration of the mid sigmoid. This was easily palpable and I could feel the transition to healthy looking sigmoid both distal and proximal I continued to mobilize the sigmoid by dividing the ligamentous attachments along the white line of Toldt in the left colon. Again there was note of a lot of induration in the lateral aspect of the sigmoid because of his previous inflammatory process. I did careful dissection of this area as the planes were not well-defined. Eventually I was able to achieve significant mobilization of the entire sigmoid colon. I could feel the healthy segment proximal and distal to the long segment induration. I mobilized the rectosigmoid on both the left and the right side by dividing the peritoneum with the LigaSure. I then chose my point of the transection in the rectosigmoid. I created a mesenteric window and used the Endo-SERGIO 60 mm stapler to divide this. I then proceeded to choose my point of transection in the proximal sigmoid. I created a mesenteric window again and used an Endo-SERGIO 60 mm stapler to divide this segment I pulled up the disease segment towards the anterior abdominal wall to put the mesentery on stretch. I incised the peritoneum on the right side to thin this mesentery. I used the LigaSure to divide the attached mesentery from distal to proximal. There was note of a lot of indurated tissue within the mesentery along the diseased sigmoid so we had to do careful dissection with the LigaSure to control oozing areas Eventually was able to complete transection of the mesentery. The long segment of the sigmoid from proximal to the rectosigmoid was retrieved and sent for specimen. I had a marking stitch at the distal segment . I then pulled up the proximal sigmoid stump through the incision. I says the staple line. I dilated the lumen using the dilators up to 28 mm I therefore chose the medium sized EEA stapler. I positioned the anvil in the lumen. I applied my pursestring with a Prolene 2-0 stitch. I tightened the pursestring around the anvil. I thinned out the stump by dividing attached fatty tissue to allow better exposure of the colon wall around the anvil. I positioned the proximal stump into the peritoneal cavity. I replaced the GelPort . With laparoscopic visualization, we started to do end-to-end anastomosis. The 1st personal banking assistant LUCIA Naylor positioned the dilator through the anal orifice and advanced this into the staple line of the distal stump. We then replaced this with the PA apparatus. This was advanced just anterior to the staple line of the distal stump. The spike of the EEA stapler was activated. We then locked the anvil onto this. The EEA stapler was tightened and we made sure that there was no other tissue between the circular staplers. The stapler was fired to create our circular end-to-end anastomosis. We tested the anastomosis by multiple insufflation with a bulb syringe with the anastomotic line immersed and there was no bubbling seen . There was no twisting of the left colon sigmoid. There was no tension on the anastomosis. Distention of the left colon was seen with insufflation of the rectum. I proceeded to do a flexible sigmoidoscopy we. The personal banking assistant inserted the colonoscope into the anal orifice and this was advanced gently with insufflation to visualize the anastomotic site. Again this appeared to be intact without any bleeding. We then proceeded to withdraw the entire colonoscope completely. I then examined the anastomotic donuts. One area of the distal donut appeared to be thinned out. I therefore decided to do a diverting loop ileostomy because of this especially in view of the presence of induration on the entire sigmoid I identified the cecum and traced this proximally to identify the terminal ileum. I chose my loop in the distal ileum and created a mesenteric window. I positioned an umbilical tape through this mesentery defect I then created my stoma opening. I excised the discoid piece of skin on the previously marked area of the right lower quadrant. This was done using blade 10. I divided through the subcutaneous layer with electrocautery. I incised the anterior sheath and did muscle-splitting of the rectus and incised the posterior sheath as well I dilated this opening up to 2 of my fingers. I pulled the umbilical tape with the loop of ileum through this opening. I replaced the umbilical tape with a stoma bridge. We then proceeded to examine the peritoneal cavity again. There was no evidence of any bleeding. We irrigated and suctioned the irrigant fluid. Once hemostasis was confirmed, I proceeded to then close the fascia with a running Maxon 1 stitch. We irrigated the subcutaneous layer and closed the skin with skin bobby I had changed gloves and gown prior to closing the peritoneal cavity . We then proceeded to mature the diverting loop ileostomy. I made a transverse incision on the anterior wall using electrocautery. Then applied a circumferential row of full-thickness Polysorb 3-0 sutures through the wall of the ileum to the subdermal layer. I proceeded to use my finger and I was able to palpate both the efferent and afferent openings past the fascial level I then proceeded to do laparoscopic examination to examine our fascial closure and there was no bowel caught with the sutures. No twisting of the loop ileostomy was seen There was no bleeding noted no any signs of any bowel injury. We proceeded to therefore desufflated through the ports. The epigastric port was removed. I closed the rest of the incisions with skin bobby. All incisions were infiltrated with Marcaine 0.5% for postop analgesia . Dressings were applied. The stoma appliance was placed in the procedure was completed. The patient tolerated the procedure well. There were no immediate complications. Initial and final counts of sponges and instruments were correct. Estimated blood loss was about 100 cc The patient was extubated without difficulty and transferred to the recovery room with stable vital signs.
[2023-10-04] MEDS: HYDROmorphone HCl 0.5 MG/0.5 ML SYRINGE IVPUSH ×5 (11:30→19:43)
--- NOTE | 2023-10-04 11:53 | PHA.MEDREC ---
Pharmacy Consult ? Medication Reconciliation Pharmacy has completed the medication reconciliation. Reviewed med rec done by nursing (Michelle).
[2023-10-04] MEDS: fentaNYL citrate/PF 100 MCG/2 ML VIAL 25 MCG IVPUSH ×4 (12:00→12:15)
[2023-10-04] MEDS: Nicotine 14 MG PATCH.TD24 TRANSDERMA (13:51)
[2023-10-04] MEDS: Acetaminophen 1,000 MG/100 ML PIGGYBACK 400 MG IV ×2 (14:49→20:53)
[2023-10-04] MEDS: 0.9 % Sodium Chloride Flush 3 ML SYRINGE IVFLUSH (15:46)
--- NOTE | 2023-10-04 16:24 | PM.EVENT ---
Event Note Date of Service: 10/04/23 Event Note: seen postop s/p sigmoid resection, colostomy c/o incisional pain stable VS abd soft urine adequate pain mgt incentive sipirometry stoma care family updated at bedside Time Spent With Patient Time: Total time managing care of this patient today ____ minutes.
[2023-10-04] MEDS: oxyCODONE HCl Immed Release 5 MG TABLET 10 MG PO ×2 (17:09→20:59)
[2023-10-04] MEDS: ondansetron HCL 4 MG/2 ML VIAL IVPUSH (19:48)
[2023-10-04] MEDS: Bismuth Subsalicylate Liquid 524 MG/30 ML ORAL.SUSP PO (20:57)
--- NOTE | 2023-10-04 22:03 | PC.NURSE ---
1999 pt complaining of 10/10 pain states the dilaudid is not working.pt medicated with dilaudid 0.5mg IV at 1943 and states the oxycodone 10mg po does nothing. notified.Dilaudid does increased to 1mg IV Q3hrs PRN.
[2023-10-04] MEDS: HYDROmorphone HCl 1 MG/ML SYRINGE IVPUSH (22:32)
[2023-10-04] MEDS: Magnesium Hydrox/Alum Hydrox 30 ML ORAL.SUSP PO (22:37)
[2023-10-04] MEDS: Melatonin 3 MG TABLET 6 MG PO (22:37)
[2023-10-05] MEDS: HYDROmorphone HCl 1 MG/ML SYRINGE IVPUSH ×5 (01:30→12:51)
[2023-10-05] MEDS: Acetaminophen 1,000 MG/100 ML PIGGYBACK 400 MG IV ×3 (03:01→18:14)
[2023-10-05] MEDS: oxyCODONE HCl Immed Release 5 MG TABLET 10 MG PO ×4 (03:04→20:03)
[2023-10-05 03:17] VITALS: BP 155/79; PULSE 71; RESP 18; TEMP 36.5; O2SAT 97
[2023-10-05 06:17] LABS: MANUAL DIFF FLAG NO
[2023-10-05 06:41] LABS: Anion Gap 9 (12-20); Blood Urea Nitrogen 5 mg/dL (9-16); Calcium 8.9 mg/dL (8.4-10.2); Carbon Dioxide 25 mmol/L (22-29); Chloride 105 mmol/L (96-108); Creatinine Clr Calc Pharmacy 101.9; Estimated Glomerular Filt Rate > 60; Glucose Fasting 105 mg/dL (60-99); Potassium 3.3 mmol/L (3.3-5.1); Sodium 136 mmol/L (135-145)
[2023-10-05 06:53] LABS: Basophils Absolute Auto 0.1 X10*3/uL (0.0-0.2); Basophils Percent Auto 0.7 % (0-2); Eosinophils Absolute Auto 0.1 X10*3/uL (0.0-0.4); Eosinophils Percent Auto 0.9 % (0-4); Hematocrit 37.9 % (42.0-52.0); Hemoglobin 12.7 g/dl (14.0-18.0); Imm Gran Abs Auto 0.05 X10*3/uL (0.00-0.03); Imm Gran Pct Auto 0.5 % (0.0-0.4); Lymphocytes Absolute Auto 1.6 X10*3/uL (1.2-4.9); Lymphocytes Percent Auto 16.2 % (20-40); Mean Corpuscular HGB Conc 33.5 g/dl (31.0-36.0); Mean Corpuscular Hemoglobin 29.3 pg (27.0-33.0); Mean Corpuscular Volume 87.5 fL (80.0-98.0); Mean Platelet Volume 8.5 fL (9.4-12.4); Monocytes Absolute Auto 0.8 X10*3/uL (0.1-1.2); Monocytes Percent Auto 7.9 % (2-11); Neutrophils Absolute Auto 7.3 x10*3/uL (2.0-8.3); Neutrophils Percent Auto 73.8 % (45-73); Platelet Count 277 X10*3/uL (160-400); Red Blood Count 4.33 X10*6/uL (4.60-5.80); Red Cell Distribution Width 13.3 % (11.0-16.0); White Blood Count 9.9 X10*3/uL (4.8-10.8)
[2023-10-05] MEDS: Nicotine 14 MG PATCH.TD24 TRANSDERMA (07:03)
[2023-10-05 07:09] VITALS: BP 158/78; PULSE 72; RESP 16; TEMP 36.6; O2SAT 97
[2023-10-05] MEDS: Lactated Ringers 1,000 ML 100 ML IVCONT ×2 (07:34→16:20)
--- NOTE | 2023-10-05 07:44 | PM.PNGS ---
Subjective Subjective Date of Service: 10/05/23 <Hyun Naylor PA-C - Last Filed: 10/05/23 07:47> 10/05/23 <Victoriano Sherman MD - Last Filed: 10/05/23 08:14> Interval history: Had difficulty with pain overnight- comfortable now with dilaudid 1mg q3h but recently got oxycodone which is not helping. Has not been OOB. was vomiting last night due to pain but better this am. <Hyun Naylor PA-C - Last Filed: 10/05/23 07:47> Physical Exam Vital Signs: Vital Signs: Last Vital Signs Temp 97.8 F 10/05/23 07:09 Pulse 72 10/05/23 07:09 Resp 16 10/05/23 07:09 BP 158/78 H 10/05/23 07:09 Pulse Ox 97 10/05/23 07:09 O2 Del Method Room Air 10/05/23 07:09 O2 Flow Rate 2 10/04/23 13:26 BMI result Body Mass Index 25.2 <Hyun Naylor PA-C - Last Filed: 10/05/23 07:47> Const: General: comfortable, no acute distress and alert <DAMON Loredo Last Filed: 10/05/23 07:47> Resp: Effort & Inspection: normal respiratory effort <Hyun Naylor PA-C - Last Filed: 10/05/23 07:47> GI: Other: ileostomy viable appearing, bilious output <Hyun Naylor PA-C - Last Filed: 10/05/23 07:47> Inspection: Yes distended and Yes incision (dressing intact) <Hyun Naylor PA-C - Last Filed: 10/05/23 07:47> Palpation (GI): Soft to palpation, Tenderness to palpation present (GI) (incisional) and no guarding <DAMON Loredo Last Filed: 10/05/23 07:47> Skin: General skin exam: no rashes or lesions noted <DAMON Loredo Last Filed: 10/05/23 07:47> Objective Data Active Medications Al Hydroxide/Mg Hydroxide (Magnesium Hydrox/Alum Hydrox 30 Ml Oral.Susp) 30 ml PO Q4H PRN PRN Reason: Heartburn/Nausea Last Admin: 10/04/23 22:37 Dose: 30 ml Documented By: DEVIN Bismuth Subsalicylate (Bismuth Subsalicylate Liquid 524 Mg/30 Ml Oral.Susp) 524 mg PO QID [facility] Last Admin: 10/05/23 07:04 Dose: Not Given Documented By: JOHN Non-Admin Reason: Patient Refused Heparin Sodium (Porcine) (Heparin Sodium,Porcine 5,000 Unit/Ml Vial) 5,000 unit SUBCUT Q8H YULISSA Hydromorphone HCl (Hydromorphone Hcl 1 Mg/Ml Syringe) 1 mg IVPUSH Q3H PRN; Protocol PRN Reason: Pain, Severe (Pain Scale 7-10) Last Admin: 10/05/23 04:56 Dose: 1 mg Documented By: DEVIN Lactated Ringer's (Lr) 1,000 mls @ 100 mls/hr IVCONT .Q10H [facility] Last Admin: 10/05/23 07:34 Dose: 100 mls/hr Documented By: ZOË Acetaminophen (Ofirmev) 1,000 mg in 100 mls @ 400 mls/hr IV Q6H [facility] Last Infusion: 10/05/23 03:16 Dose: Infused Documented By: DEVIN Lorazepam (Lorazepam 0.5 Mg Tablet) 0.5 mg PO DAILY PRN PRN Reason: anxiety Melatonin (Melatonin 3 Mg Tablet) 6 mg PO BEDTIME PRN PRN Reason: Insomnia Last Admin: 10/04/23 22:37 Dose: 6 mg Documented By: DEVNI Nicotine (Nicotine 14 Mg Patch.Td24) 14 mg TRANSDERMA DAILY [facility] Last Admin: 10/05/23 07:03 Dose: 14 mg Documented By: JOHN Ondansetron HCl (Ondansetron Hcl 4 Mg/2 Ml Vial) 4 mg IVPUSH Q8H PRN PRN Reason: Nausea and Vomiting Last Admin: 10/04/23 19:48 Dose: 4 mg Documented By: DEVIN Oxycodone HCl (Oxycodone Hcl Immed Release 5 Mg Tablet) 10 mg PO Q4H PRN PRN Reason: Pain, Moderate(Pain Scale 4-6) Last Admin: 10/05/23 07:02 Dose: 10 mg Documented By: JOHN Sodium Chloride (0.9 % Sodium Chloride Flush 3 Ml Syringe) 3 ml IVFLUSH [facility] Last Admin: 10/05/23 06:57 Dose: Not Given Documented By: ZOË Non-Admin Reason: IV Running <Hyun Naylor PA-C - Last Filed: 10/05/23 07:47> Labs CBC & Chem 7: 10/05/23 05:49 10/05/23 05:49 <Hyun Naylor PA-C - Last Filed: 10/05/23 07:47> Labs: Laboratory Results - last 24 hr 10/05/23 05:49 MCV 87.5 MCH 29.3 MCHC 33.5 RDW 13.3 Plt Count 277 MPV 8.5 L Immature Gran % (Auto) 0.5 H Neut % (Auto) 73.8 H Lymph % (Auto) 16.2 L [place] % (Auto) 7.9 Eos % (Auto) 0.9 Baso % (Auto) 0.7 Lymph # (Auto) 1.6 [place] # (Auto) 0.8 Eos # (Auto) 0.1 Baso # (Auto) 0.1 Abs Immat Gran (auto) 0.05 H Absolute Neuts (auto) 7.3 Absolute Nucleated RBC 0.000 Nucleated RBC % (auto) 0.0 Anion Gap 9 L Estim Creat Clear Calc 101.9 Estimated GFR > 60 Fasting Glucose 105 H Calcium 8.9 D <Hyun Naylor PA-C - Last Filed: 10/05/23 07:47> Procedures Date of Service Date of Service: 10/05/23 <Hyun Naylor PA-C - Last Filed: 10/05/23 07:47> 10/05/23 <Victoriano Sherman MD - Last Filed: 10/05/23 08:14> Progress Note: A&P Assessment and plan (1) Colonic diverticular abscess: Status: Acute <Hyun Naylor PA-C - Last Filed: 10/05/23 07:47> Assessment and Plan: says he had poor pain control last night feels better this morning although with pain abdomen soft stoma with good bilious output encourage ambulation pain management incentive spirometry plan to advance diet later on seen and examined independently <Victoriano Sherman MD - Last Filed: 10/05/23 08:14> Assessment and Plan: POD #1 s/p Hand assisted laparoscopic sigmoid resection, extensive lysis of adhesions, diverting loop ileostomy for hx of diverticulitis and diverticular abscess. Having difficulty with pain but abd benign with appropriate post op tenderness, ileostomy viable appearing and functioning. Dc mckeon. Cont current pain regimen. Encouraged OOB/ambulation and IS use. Cont clears for now. <Hyun Naylor PA-C - Last Filed: 10/05/23 07:47> Time Spent With Patient Time: Total time managing care of this patient today ____ minutes. <Hyun Naylor PA-C - Last Filed: 10/05/23 07:47> Quality Stroke Does the patient have a stroke diagnosis?: No <Hyun Naylor PA-C - Last Filed: 10/05/23 07:47> VTE Prior VTE?: No <Hyun Naylor PA-C - Last Filed: 10/05/23 07:47> VTE Risk Level:: Surgical - high <DAMON Loredo Last Filed: 10/05/23 07:47> VTE Device Contraindication: N/A - Device Ordered <Hyun Naylor PA-C - Last Filed: 10/05/23 07:47> VTE Drug Contraindication: N/A - Med Ordered <Hyun Naylor PA-C - Last Filed: 10/05/23 07:47>
[2023-10-05] MEDS: LORazepam 0.5 MG TABLET PO (11:14)
--- NOTE | 2023-10-05 11:50 | PC.NURSE ---
Per MD order mckeon removed at 08, since removal Pt has voided twice in he urinal for a total output of 300ml.
--- NOTE | 2023-10-05 12:15 | HO.OSTOMY ---
Ostomy Consult Received consult for new ostomy teaching. ?He had diverting loop Ileostomy creation on 10/04/[address] Sherman. ?Upon entry into patient's room, he is sitting in his bed family at the bedside. Introductions were completed he immediately refuses teaching. He is frustrated agitated and irate at times that he feels his pain is not well controlled. I reviewed my roll in his care, he continued to refuse teaching and information. He did allow for me to assess his pouch, no leaking was noted the stoma appears to be above skin level round moist and red. The pouch was filled with dark brown bilious liquid. He refused my emptying the pouch. I attempted to educate the patient on the benefits of emptying the pouch when 1/3 -1/2 full to prevent leaking and sitting with stool on his skin and person. He reported frustration and refused my emptying of his pouch. Direct care nurse notified as well as Dr. Sherman. Will attempt teaching tomorrow.
--- NOTE | 2023-10-05 12:30 | MHC.CM.PN ---
PATIENT'S SON-IN LAW HAD CONVERSATION WITH PATIENT WHO DOES NOT WANT ANY SURGICAL INTERVENTION AND WANTS OT RETURN HOME ON TUESDAY. PLAN WILL REMAIN HOME ON HOSPICE WITH [facility]. FAMILY GIVEN CONTACT NUMBER FOR LOCAL HOME HEALTH ASSISTANCE TO HELP WITH DAILY HYGIENE AND COMFORT NEEDS.
--- NOTE | 2023-10-05 12:33 | MHC.CM.PN ---
ELLI LIVES WITH HCP/SIGNIFICANT OTHER HCP ON FILE AND VERFIED. HE IS INDEPENDENT AT BASELINE. CURRENTLY HAS NO SERVICES IN THE HOME AND IS NOT SURE IF HE WILL NEED ANY AT DC. HE DOES NOT WISH TO DISCUSS ANY OPTIONS AT THIS TIME, HE DOES NOT FEEL HIS PAIN IS BEING MANAGED. SUGGESTION MADE TO DISCUSS HIS NEEDS WITH HIS PROVIDING DOCTOR. CASE MANAGEMENT NAME ON WHITE BOARD IN THE EVENT HE HAS ANY ANTICIPATED DC NEEDS. CASE MANAGEMENT FOLLOWING
--- NOTE | 2023-10-05 12:46 | PC.NURSE ---
Pt complaining of 10/10 abd pain, received 1mg dilaudid IV push at 11:08, upon reassessment Pt reports no relief, Pt expresses being very frustrated, MD Dr Sherman made aware, new verbal order for one time dose of 1mg dilaudid IV push taken and entered by this RN.
--- NOTE | 2023-10-05 13:38 | PM.EVENT ---
Event Note Date of Service: 10/05/23 Event Note: He says he continues to have postop pain Does not feel that Dilaudid has helped since yesterday Looks well otherwise Vital signs stable Stoma functioning well He is voiding freely without the catheter We will switch to morphine Add Toradol Continue Ofirmev Encouraged to take oral oxycodone as well for more steady state control He does admit that he has anxiety and low threshold for pain as well Time Spent With Patient Time: Total time managing care of this patient today ____ minutes.
[2023-10-05] MEDS: Ketorolac Tromethamine 15 MG/ML VIAL 30 MG IVPUSH ×2 (14:18→20:02)
[2023-10-05 15:22] VITALS: BP 129/74; PULSE 68; RESP 14; TEMP 36.3; O2SAT 97
--- NOTE | 2023-10-05 15:30 | HO.POSTANES ---
Post Anesthesia Evaluation Post Anesthesia Evaluation Date of Service: 10/05/23 Vital Signs: Vital Signs Temp Pulse Resp BP Pulse Ox O2 Del Method 10/05/23 15:22 97.4 F 68 14 129/74 97 Room Air 10/05/23 07:09 97.8 F 72 16 158/78 H 97 Room Air Anesthesia: General Endotracheal-GETA Mental Status: Awake Pain Control: Satisfactory Nausea/Vomiting: None Hydration: Adequate Anesthesia-Related Issues: No Anes. Related Issues
--- NOTE | 2023-10-05 16:09 | PM.EVENT ---
Event Note Date of Service: 10/05/23 Event Note: Seen on late afternoon rounds He is more comfortable He still has pain but says this is better controlled now Has been passing flatus via the stoma as well He looks well Stoma with output including gas I switched him to morphine for hopefully better pain control I had added Toradol earlier Plan to advance diet tomorrow Time Spent With Patient Time: Total time managing care of this patient today ____ minutes.
[2023-10-05] MEDS: Bismuth Subsalicylate Liquid 524 MG/30 ML ORAL.SUSP PO ×2 (16:16→21:07)
[2023-10-05] MEDS: Omeprazole 20 MG CAPSULE.DR PO (16:16)
[2023-10-05] MEDS: Morphine Sulfate 4 MG/ML CARTRIDGE IVPUSH ×3 (16:16→23:40)
[2023-10-05 20:00] VITALS: BP 146/80; PULSE 72; RESP 20; TEMP 36.1; O2SAT 98
[2023-10-05] MEDS: Heparin Sodium,Porcine 5,000 UNIT/ML VIAL 5000 UNIT SUBCUT (20:03)
[2023-10-05] MEDS: Melatonin 3 MG TABLET 6 MG PO (21:07)
[2023-10-06] MEDS: Acetaminophen 1,000 MG/100 ML PIGGYBACK 400 MG IV ×5 (00:57→23:53)
[2023-10-06] MEDS: oxyCODONE HCl Immed Release 5 MG TABLET 10 MG PO ×6 (01:01→23:53)
[2023-10-06] MEDS: Ketorolac Tromethamine 15 MG/ML VIAL 30 MG IVPUSH (02:01)
[2023-10-06] MEDS: Lactated Ringers 1,000 ML 100 ML IVCONT (02:01)
[2023-10-06] MEDS: Heparin Sodium,Porcine 5,000 UNIT/ML VIAL 5000 UNIT SUBCUT ×2 (03:28→19:56)
[2023-10-06] MEDS: Morphine Sulfate 4 MG/ML CARTRIDGE IVPUSH ×2 (03:29→06:31)
[2023-10-06 03:35] VITALS: BP 125/66; PULSE 71; RESP 20; TEMP 36.3; O2SAT 93
[2023-10-06] MEDS: Omeprazole 20 MG CAPSULE.DR PO ×2 (05:59→16:26)
[2023-10-06 07:40] VITALS: BP 162/93; PULSE 72; RESP 18; TEMP 36.8; O2SAT 97
--- NOTE | 2023-10-06 07:49 | PM.PNGS ---
Subjective Subjective Date of Service: 10/06/23 Interval history: feels great this morning says pain control much improved tolerating liquids well passing flatus and liquid stool via stoma Physical Exam Vital Signs: Vital Signs: Last Vital Signs Temp 98.2 F 10/06/23 07:40 Pulse 72 10/06/23 07:40 Resp 18 10/06/23 07:40 BP 162/93 H 10/06/23 07:40 Pulse Ox 97 10/06/23 07:40 O2 Del Method Room Air 10/06/23 07:40 O2 Flow Rate 2 10/04/23 13:26 BMI result Body Mass Index 25.2 Const: General: comfortable and no acute distress Resp: Effort & Inspection: normal respiratory effort Cardio: Rate: regular rate GI: Other: stoma with good output, incisions clean and dry Palpation (GI): Soft to palpation, not firm and no guarding Objective Data Active Medications Al Hydroxide/Mg Hydroxide (Magnesium Hydrox/Alum Hydrox 30 Ml Oral.Susp) 30 ml PO Q4H PRN PRN Reason: Heartburn/Nausea Last Admin: 10/04/23 22:37 Dose: 30 ml Documented By: DEVIN Bismuth Subsalicylate (Bismuth Subsalicylate Liquid 524 Mg/30 Ml Oral.Susp) 524 mg PO QID [facility] Last Admin: 10/05/23 21:07 Dose: 524 mg Documented By: DEVIN Heparin Sodium (Porcine) (Heparin Sodium,Porcine 5,000 Unit/Ml Vial) 5,000 unit SUBCUT Q8H [facility] Last Admin: 10/06/23 03:28 Dose: 5,000 unit Documented By: DEVIN Acetaminophen (Ofirmev) 1,000 mg in 100 mls @ 400 mls/hr IV Q6H [facility] Last Admin: 10/06/23 06:33 Dose: 400 mls/hr Documented By: DEVIN Ketorolac Tromethamine (Ketorolac Tromethamine 15 Mg/Ml Vial) 30 mg IVPUSH Q6H [facility] Last Admin: 10/06/23 02:01 Dose: 30 mg Documented By: DEVIN Lorazepam (Lorazepam 0.5 Mg Tablet) 0.5 mg PO DAILY PRN PRN Reason: anxiety Last Admin: 10/05/23 11:14 Dose: 0.5 mg Documented By: ZOË Melatonin (Melatonin 3 Mg Tablet) 6 mg PO BEDTIME PRN PRN Reason: Insomnia Last Admin: 10/05/23 21:07 Dose: 6 mg Documented By: DEVIN Morphine Sulfate (Morphine Sulfate 4 Mg/Ml Cartridge) 4 mg IVPUSH Q3H PRN; Protocol PRN Reason: Pain, Severe (Pain Scale 7-10) Last Admin: 10/06/23 06:31 Dose: 4 mg Documented By: DEVIN Nicotine (Nicotine 14 Mg Patch.Td24) 14 mg TRANSDERMA DAILY [facility] Last Admin: 10/05/23 07:03 Dose: 14 mg Documented By: JOHN Omeprazole (Omeprazole 20 Mg Capsule.Dr) 20 mg PO BID@0630,1630 [facility] Last Admin: 10/06/23 05:59 Dose: 20 mg Documented By: DEVIN Ondansetron HCl (Ondansetron Hcl 4 Mg/2 Ml Vial) 4 mg IVPUSH Q8H PRN PRN Reason: Nausea and Vomiting Last Admin: 10/04/23 19:48 Dose: 4 mg Documented By: DEVIN Oxycodone HCl (Oxycodone Hcl Immed Release 5 Mg Tablet) 10 mg PO Q4H PRN PRN Reason: Pain, Moderate(Pain Scale 4-6) Last Admin: 10/06/23 05:59 Dose: 10 mg Documented By: DEVIN Sodium Chloride (0.9 % Sodium Chloride Flush 3 Ml Syringe) 3 ml IVFLUSH QSHIFT [facility] Last Admin: 10/06/23 07:22 Dose: Not Given Documented By: MILADIS Non-Admin Reason: IV Running Labs 10/05/23 05:49 10/05/23 05:49 Procedures Date of Service Date of Service: 10/06/23 Progress Note: A&P Assessment and plan (1) Colonic diverticular abscess: Status: Acute Assessment and Plan: s/p sigmoid resection much better pain control feels well this AM ambulate regular diet pain mgt stoma viable, with good output Time Spent With Patient Time: Total time managing care of this patient today ____ minutes. Quality Stroke Does the patient have a stroke diagnosis?: No VTE Prior VTE?: No VTE Risk Level:: Surgical - high VTE Device Contraindication: N/A - Device Ordered VTE Drug Contraindication: N/A - Med Ordered
[2023-10-06] MEDS: Nicotine 14 MG PATCH.TD24 TRANSDERMA (08:07)
[2023-10-06] MEDS: Ketorolac Tromethamine 15 MG/ML VIAL IVPUSH ×3 (08:07→19:56)
[2023-10-06] MEDS: Morphine Sulfate 4 MG/ML CARTRIDGE 3 MG IVPUSH ×2 (10:32→23:36)
[2023-10-06] MEDS: LORazepam 0.5 MG TABLET PO (11:35)
[2023-10-06] MEDS: Bismuth Subsalicylate Liquid 524 MG/30 ML ORAL.SUSP PO ×2 (13:52→20:26)
--- NOTE | 2023-10-06 14:25 | HO.OSTOMY ---
Ostomy Consult Received consult for new ostomy teaching. ?He had diverting loop Ileostomy creation on 10/04/[address] Sherman. ?Upon entry into patient's room, he is sitting in his recliner chair, he is alert and oriented x 3, he currently has continued complaints of pain medication administration and communication. Introductions were completed, he is agreeable to continuing with consult and photo documentation. ? He reports increasing the use of his IS and ambulating in his room. ?We began by discussing general knowledge about the Ileostomy and questions he had. ?We discussed opening and closing the ostomy pouch. He was able to independently provide a return demonstration on an empty pouch. ?He had not yet emptied his pouch. ?We discussed the importance of emptying pouch when 1/3 to 1/2 full, how to empty pouch, and lining water with toilet paper to prevent splash back. With an empty [employer] pouch he performed a demonstration. ? He was also educated on when to contact sugar presser/Dr Sherman's office/seek emergency medical treatment. Patient was given some ostomy pouches for transition to home and notified Noam Ostomy nurse from Dr. Sherman office will set up [place] for home delivery supplies. Reviewed written education with patient and left at bedside for further review. ?We briefly discussed dietary restrictions/ modifications and rehydration drinks, and foods to thicken his stool. ?We discussed the importance of monitoring his stool and the output in correlation with dehydration. Permission was granted for pouch assessment and no leak was noted. His stoma was observed through the pouch to be red moist and oval, clear plastic bridges (2) were in place. Pouch to be changed later in the day by outpt RN. He was educated and performed a stoma model change, he had excellent questions that led to further discussion. ?After the pouch was changed he was able to open close on the pouch attached to his abdomen without coaching. ?He reported having no questions at this time. ?Patient seems to have a good understanding of care and material at this time. ?He will benefit from VNA services at time of discharge. ?All questions and concerns addressed at this time. Patient agreeable to [employer] care program sign up. Next teaching session goals: Demonstrate open and close independently Steps to a pouch change he is able to recall Naming of three things that can thicken his stool When to seek emergency treatment We discussed the following steps: 1. Empty pouch before pouch change 2. Remove pouch using push/pull technique from top to bottom 3. Cleanse stoma and skin with tap water only - no soap or baby wipes 4. Pat dry 5. Measure stoma and cut new pouch no more than 1/8 inch larger than stoma and no smaller than stoma 6. If instructed by your ostomy nurse stretch Mykel seal to the size of the stoma and press onto skin around stoma (up to the edge of the stoma but not onto the stoma) 7. Press the new pouch into place and hold for several minutes (close pouch tail) 8. Empty pouch when 1/3 to 1/2 full 9. Change pouch twice weekly on a schedule (for example, every Tuesday and ) and as needed for any leaking (feels like intense itch or burn at edge of stoma) 10. May order pre-cut pouches (already cut to size of stoma) once stoma measures the same size consistently. ?
[2023-10-06 15:21] VITALS: BP 135/81; PULSE 74; RESP 18; TEMP 36.7; O2SAT 96
[2023-10-06] MEDS: 0.9 % Sodium Chloride Flush 3 ML SYRINGE IVFLUSH ×2 (16:27→20:28)
[2023-10-06 19:09] VITALS: BP 136/75; PULSE 67; RESP 18; TEMP 37.2; O2SAT 97
[2023-10-07] MEDS: Ketorolac Tromethamine 15 MG/ML VIAL IVPUSH ×2 (01:50→07:19)
[2023-10-07] MEDS: oxyCODONE HCl Immed Release 5 MG TABLET 10 MG PO ×2 (03:17→06:52)
[2023-10-07] MEDS: Heparin Sodium,Porcine 5,000 UNIT/ML VIAL 5000 UNIT SUBCUT (03:17)
[2023-10-07] MEDS: Morphine Sulfate 4 MG/ML CARTRIDGE 3 MG IVPUSH (05:00)
[2023-10-07] MEDS: Omeprazole 20 MG CAPSULE.DR PO (06:52)
[2023-10-07] MEDS: Acetaminophen 1,000 MG/100 ML PIGGYBACK 400 MG IV (06:53)
[2023-10-07] MEDS: 0.9 % Sodium Chloride Flush 3 ML SYRINGE IVFLUSH (07:19)
[2023-10-07 07:37] VITALS: BP 146/83; PULSE 70; RESP 17; TEMP 36.8; O2SAT 96
[2023-10-07] MEDS: Bismuth Subsalicylate Liquid 524 MG/30 ML ORAL.SUSP PO (08:22)
[2023-10-07] MEDS: Nicotine 14 MG PATCH.TD24 TRANSDERMA (08:22)
--- NOTE | 2023-10-07 08:22 | P.PNGS_ITS ---
Subjective Subjective Date of Service: 10/07/23 Interval history: feels great this morning good stoma function good pain control has been ambulating well tolerating diet Physical Exam 2 Vital Signs: Vital Signs: Last Vital Signs Temp 98.2 F 10/07/23 07:37 Pulse 70 10/07/23 07:37 Resp 17 10/07/23 07:37 BP 146/83 H 10/07/23 07:37 Pulse Ox 96 10/07/23 07:37 O2 Del Method Room Air 10/07/23 07:37 O2 Flow Rate 2 10/04/23 13:26 BMI result Body Mass Index 25.2 Const: General: comfortable and no acute distress Resp: Effort & Inspection: normal respiratory effort Cardio: Rate: regular rate GI: Other: stoma functioning well, incision clean and dry Palpation (GI): Soft to palpation and not firm Objective Data Active Medications Al Hydroxide/Mg Hydroxide (Magnesium Hydrox/Alum Hydrox 30 Ml Oral.Susp) 30 ml PO Q4H PRN PRN Reason: Heartburn/Nausea Last Admin: 10/04/23 22:37 Dose: 30 ml Documented By: DEVIN Bismuth Subsalicylate (Bismuth Subsalicylate Liquid 524 Mg/30 Ml Oral.Susp) 524 mg PO QID [facility] Last Admin: 10/06/23 20:26 Dose: 524 mg Documented By: DEVIN Heparin Sodium (Porcine) (Heparin Sodium,Porcine 5,000 Unit/Ml Vial) 5,000 unit SUBCUT Q8H [facility] Last Admin: 10/07/23 03:17 Dose: 5,000 unit Documented By: JOHN Acetaminophen (irmev) 1,000 mg in 100 mls @ 400 mls/hr IV Q6H [facility] Last Infusion: 10/07/23 07:20 Dose: Infused Documented By: MILADIS Ketorolac Tromethamine (Ketorolac Tromethamine 15 Mg/Ml Vial) 15 mg IVPUSH Q6H [facility] Last Admin: 10/07/23 07:19 Dose: 15 mg Documented By: MILADIS Lorazepam (Lorazepam 0.5 Mg Tablet) 0.5 mg PO DAILY PRN PRN Reason: anxiety Last Admin: 10/06/23 11:35 Dose: 0.5 mg Documented By: MILADIS Melatonin (Melatonin 3 Mg Tablet) 6 mg PO BEDTIME PRN PRN Reason: Insomnia Last Admin: 10/05/23 21:07 Dose: 6 mg Documented By: DEVIN Morphine Sulfate (Morphine Sulfate 4 Mg/Ml Cartridge) 3 mg IVPUSH Q4H PRN; Protocol PRN Reason: Pain, Severe (Pain Scale 7-10) Last Admin: 10/07/23 05:00 Dose: 3 mg Documented By: JOHN Nicotine (Nicotine 14 Mg Patch.Td24) 14 mg TRANSDERMA DAILY [facility] Last Admin: 10/06/23 08:07 Dose: 14 mg Documented By: MILADIS Omeprazole (Omeprazole 20 Mg Capsule.Dr) 20 mg PO BID@0630,1630 [facility] Last Admin: 10/07/23 06:52 Dose: 20 mg Documented By: JOHN Ondansetron HCl (Ondansetron Hcl 4 Mg/2 Ml Vial) 4 mg IVPUSH Q8H PRN PRN Reason: Nausea and Vomiting Last Admin: 10/04/23 19:48 Dose: 4 mg Documented By: DEVIN Oxycodone HCl (Oxycodone Hcl Immed Release 5 Mg Tablet) 10 mg PO Q4H PRN PRN Reason: Pain, Moderate(Pain Scale 4-6) Last Admin: 10/07/23 06:52 Dose: 10 mg Documented By: JOHN Sodium Chloride (0.9 % Sodium Chloride Flush 3 Ml Syringe) [facility] Last Admin: 10/07/23 07:19 Dose: 3 ml Documented By: MILADIS Labs 10/05/23 05:49 10/05/23 05:49 Procedures Date of Service Date of Service: 10/07/23 Progress Note: A&P Assessment and plan (1) Colonic diverticular abscess: Status: Acute Assessment and Plan: status post sigmoid resection and ileostomy Doing well Good stoma function Good GI functions He says he feels ready to be discharged Discharge instructions given Stoma bridge removed stoma education done Time Spent With Patient Time: Total time managing care of this patient today ____ minutes. Quality Stroke Does the patient have a stroke diagnosis?: No VTE Prior VTE?: No VTE Risk Level:: Surgical - high VTE Device Contraindication: N/A - Device Ordered VTE Drug Contraindication: N/A - Med Ordered
--- NOTE | 2023-10-07 09:01 | PM.DS ---
DS: Providers Provider Date of Service: 10/07/23 Date of admission: 10/04/23 08:13 Date of discharge: 10/07/23 Primary care physician: Lorenzo Burns MD Attending physician on admission: Victoriano Sherman Consults: 10/04/23 12:39 Consult to Ostomy Care Routine Attending physician on discharge: Victoriano Sherman DS: Diagnosis Discharge Diagnosis (1) Colonic diverticular abscess: Status: Acute DS: Summary Hospital Course Hospital Course: HPI AT ADMISSION: The patient is a 57-year-old male who has had previous multiple admissions for diverticular abscess and has had recurrent diverticulitis. He had wanted to proceed with resection in view of this. He understood the technique of the planned procedure as well as the risks, benefits, and alternatives. He had a colonoscopy yesterday showing diverticulosis, internal hemorrhoids and a small rectal polyp. HOSPITAL COURSE: On 10/04/23, a hand assisted laparoscopic sigmoid resection, extensive lysis of adhesions, diverting loop ileostomy was performed by Dr. Sherman without complication. The patient tolerated the procedure well. He had an uncomplicated recovery course. On POD #1, he had difficulty with incisional pain but overall was doing well. His mckeon was removed. He was tolerating clear liquids. The following day he felt much improved in regards to pain. He had bilious output from his ileostomy. He was advanced to solid diet. His activity was increased. Ileostomy education was performed. On POD #3, his pain was well controlled. He was tolerating a solid diet without nausea or vomiting. His abdomen was benign with clean incisions and ostomy was viable appearing with liquid output. His bridge was removed. He felt ready for discharge. He was discharged to home on 10/07/23 in stable condition. He is to follow up in the office in 2 weeks. He felt comfortable with ostomy care and denied VNA services. Status at Discharge Functional status at discharge: independent ambulation Overall status at discharge: patient is progressing back to baseline Time Attestation Discharge Coordination Time (in mins): 35 Quality: Safe Use of Opioids Does Pt have an Active Cancer Diagnosis on the Problem List?: No Quality: Stroke Does the patient have a stroke diagnosis?: No Physical Exam Vital Signs: Vital Signs: Last Vital Signs Temp 98.2 F 10/07/23 07:37 Pulse 70 10/07/23 07:37 Resp 17 10/07/23 07:37 BP 146/83 H 10/07/23 07:37 Pulse Ox 96 10/07/23 07:37 O2 Del Method Room Air 10/07/23 07:37 O2 Flow Rate 2 10/04/23 13:26 BMI result Body Mass Index 25.2 Const: General: comfortable, no acute distress and alert Orientation/consciousness: patient oriented x3 Resp: Effort & Inspection: normal respiratory effort GI: Other: ostomy viable appearing Inspection: No distended and Yes incision (clean) Palpation (GI): Soft to palpation and Tenderness to palpation present (GI) (incisional) Skin: General skin exam: no rashes or lesions noted Neuro: General: patient oriented x3 DS: Data Data Completed and Pending Completed studies during hospitalization [Text1]: 10/04/23 10:09 Surgical [PTH] Routine A. Colon, distal sigmoid, segmental resection: Diverticular-associated segmental colitis with abscess formation. B. Colon, anastomotic donuts: Colon within normal limits. Procedures Drainage of Pelvic Cavity with Drainage Device, Percutaneous Endoscopic Approach (06/13/23) Drainage of Sigmoid Colon with Drainage Device, Percutaneous Approach (05/13/23) Discharge Plan Discharge Anticipated Discharge Date/Time: 10/07/23 15:00 Patient Disposition: Home, Self-Care Discharge Diagnosis: Diverticular disease Referrals: Victoriano Sherman MD [Physician] - 2 Weeks Lorenzo Burns MD [Primary Care Provider] - 1 Week Discharge Medications: New oxycodone-acetaminophen [Percocet] 5-325 mg tablet 1 tab PO Q4-6H PRN (Reason: pain) Qty: 25 0RF Rx Instructions: Partial Fill upon patient request. ibuprofen 600 mg tablet 600 mg PO Q6H PRN (Reason: pain) Qty: 30 0RF Continued bismuth subsalicylate [Pepto-Bismol] 262 mg/15 mL Suspension 524 mg PO QID lorazepam [Ativan] 0.5 mg tablet 0.5 mg PO DAILY PRN (Reason: anxiety) Qty: 20 0RF Discontinued acetaminophen [Tylenol Extra Strength] 500 mg tablet 1,000 mg PO DAILY Discharge Orders: Discharge Order (Routine); Ordered 10/07/23 Ordered By: Victoriano Sherman Diet: Advance to usual diet Activity on Discharge: As tolerated Stand Alone Forms: Patient Portal Discharge page Print Language: Occitan Activity Restrictions/Additional Instructions: Ileostomy care as instructed If the incision area is tender, you may apply an ice pack for short intervals (No more than 20 minutes on, followed by at least 20 minutes off). Do not apply heat. Do not use creams, lotions, or topical antibiotics unless instructed to do so by your surgeon. These can cause infection or allergic reaction. No lifting more than 20 lbs Okay to shower No strenuous activities Call the office for follow-up in 2-3 weeks - with Dr. Sherman Call Your Doctor If: -Your temperature exceeds 101.5? F -You experience excessive pain or swelling -You have an unexpected reaction to medication -You have excessive bleeding -You experience continued vomiting/nausea -Your incision begins to separate -Your incision shows signs of infection such as increased redness, swelling, excessive pain, drainage (light blood or clear fluid is normal) or heat Care Plan Goals: Good stoma care Returned to baseline Health Concerns: Has stoma with fluid losses Pain management Plan of Treatment: Oral pain meds Adequate oral intake especially with fluids Assessment: Doing well
--- NOTE | 2023-10-07 09:29 | MHC.CM.PN ---
PT TO DC HOME TODAY WITH NO SERVICES VIA PRIVATE TRANSPORT
== END 2023-10-07 09:32 | disposition home or self-care (01) | DRG 230 ==
LOC: HO.SSSA 08:21 → HO.S3 12:21
PROVIDERS: Nurse Practitioner; Physician Assistant Surgical; Admitting Provider Surgery; PCP Internal Medicine; Visit Provider Surgery
PROC: 0DTE0ZZ Resection of Large Intestine, Open Approach (ICD-10-PCS; principal; 2023-10-04 09:10)
DX: K57.32 Diverticulitis of large intestine without perforation or abscess without bleeding (principal); F17.210 Nicotine dependence, cigarettes, uncomplicated; K66.0 Peritoneal adhesions (postprocedural) (postinfection); Z71.6 Tobacco abuse counseling; Z79.899 Other long term (current) drug therapy
CPT/HCPCS: 36415; 80048; 85025; 85027; 86850; 86900; 86901; 88305; 88307; 93005; C1758; J0131; J0360; J1170; J1644; J1885; J2250; J2270; J2405; J2704; J2795; J3010; J7120

== ENCOUNTER → 2023-10-04 08:13 | Outpatient (BNV) | payer OTHER, SELFPAY | PROVIDERS: Admitting Provider Surgery; PCP Internal Medicine; Visit Provider Surgery | DX: K57.20 Diverticulitis of large intestine with perforation and abscess without bleeding (principal) | CPT/HCPCS: 44208; 99024; 99499 ==

== ENCOUNTER 2023-10-18 09:56 | Outpatient (AMB) | payer OTHER, SELFPAY ==
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
== END 2023-10-18 10:16 | disposition home or self-care (01) ==
PROVIDERS: PCP Internal Medicine; Visit Provider Surgery
DX: Z09 Encounter for follow-up examination after completed treatment for conditions other than malignant neoplasm (principal)
CPT/HCPCS: 99024

== ENCOUNTER → 2023-10-18 09:56 | Outpatient (BNVA) | payer OTHER, SELFPAY | PROVIDERS: PCP Internal Medicine; Visit Provider Surgery | DX: Z09 Encounter for follow-up examination after completed treatment for conditions other than malignant neoplasm (principal); Z90.49 Acquired absence of other specified parts of digestive tract; Z93.3 Colostomy status; Z79.891 Long term (current) use of opiate analgesic | CPT/HCPCS: 99212 ==

== ENCOUNTER 2023-10-20 10:03 | Outpatient (AMB) | payer OTHER, SELFPAY ==
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
[2023-10-20 10:48] VITALS: BP 122/68; PULSE 72; O2SAT 98; BMI 23.7
== END 2023-10-20 14:49 | disposition home or self-care (01) ==
PROVIDERS: PCP Internal Medicine; Visit Provider Internal Medicine
DX: K65.1 Peritoneal abscess (principal); Z93.3 Colostomy status
CPT/HCPCS: 99214; G2211

== ENCOUNTER 2023-10-25 10:26 | Outpatient (AMB) | payer OTHER, SELFPAY ==
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
== END 2023-10-25 10:33 | disposition home or self-care (01) ==
PROVIDERS: PCP Internal Medicine; Visit Provider Surgery
DX: Z09 Encounter for follow-up examination after completed treatment for conditions other than malignant neoplasm (principal); Z43.3 Encounter for attention to colostomy; Z48.02 Encounter for removal of sutures
CPT/HCPCS: 99024

== ENCOUNTER → 2023-10-25 10:26 | Outpatient (BNVA) | payer OTHER, SELFPAY | PROVIDERS: PCP Internal Medicine; Visit Provider Surgery | DX: Z48.02 Encounter for removal of sutures (principal); Z43.3 Encounter for attention to colostomy | CPT/HCPCS: 99212 ==

== ENCOUNTER 2023-11-21 10:18 | Outpatient (AMB) | payer OTHER, SELFPAY ==
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
[2023-11-21 10:43] VITALS: BP 126/56; RESP 69; BMI 23.6
== END 2023-11-21 11:09 | disposition home or self-care (01) ==
PROVIDERS: PCP Internal Medicine; Visit Provider Surgery
DX: Z93.2 Ileostomy status (principal)
CPT/HCPCS: 99024

== ENCOUNTER → 2023-11-21 10:18 | Outpatient (BNVA) | payer OTHER, SELFPAY | PROVIDERS: PCP Internal Medicine; Visit Provider Surgery | DX: Z93.2 Ileostomy status (principal) | CPT/HCPCS: 99212 ==

== ENCOUNTER → 2023-12-12 10:30 | Outpatient (BNVA) | payer OTHER, SELFPAY | PROVIDERS: PCP Internal Medicine; Visit Provider Surgery | DX: Z43.2 Encounter for attention to ileostomy (principal) | CPT/HCPCS: 99211 ==

== ENCOUNTER 2023-12-14 10:44 | Outpatient (REF) | payer OTHER, SELFPAY ==
--- NOTE | ~2023-12-14 | FL_ITS ---
EXAMINATION: XR BARIUM ENEMA CLINICAL INFORMATION: Status post sigmoid resection with diverting ileostomy. Surgery requests evaluation of the rectosigmoid anastomosis prior to ileostomy reversal. COMPARISON: None available. TECHNIQUE: A rectal tube was inserted. Dilute Gastrografin was administered through the rectal tube and multiple spot images and cine loops were obtained. Post evacuation films were obtained. FINDINGS: After placement of a rectal tube, dilute Gastrografin was administered through the rectal tube. There is mild intraluminal narrowing at the rectosigmoid anastomosis. No extravasation of contrast is present. Contrast is seen all the way to the distal ileum. The terminal ileum has a normal appearance. There are multiple diverticula noted throughout the colon, most prominent in the remaining sigmoid and distal descending colon. FLUOROSCOPY TIME: 3 minutes 41 seconds DOSE AREA PRODUCT: 4865 uGy-m2 (microgray-meter squared) FL/FL barium enema IMPRESSION: 1. Mild intraluminal narrowing at the rectosigmoid anastomosis. No extravasation of contrast/anastomotic leak is present. 2. Pandiverticulosis This procedure was performed by Lucio Pineda PA-C, and supervised by Dr. James Electronically signed by: Kenneth James MD 12/16/2023 12:45 PM EDT
[2023-12-14] MEDS: Diatrizoate Meglumine, Sodium 120 ML SOLUTION 600 ML PR (12:39)
== END 2023-12-14 10:45 | disposition home or self-care (01) ==
LOC: HO.XRAY 10:44
PROVIDERS: PCP Internal Medicine; Visit Provider Surgery
DX: Z93.2 Ileostomy status (principal)
CPT/HCPCS: 74270

== ENCOUNTER → 2023-12-14 10:46 | Outpatient (BNV) | payer OTHER, SELFPAY | PROVIDERS: PCP Internal Medicine; Visit Provider Radiology Diagnostic Radiology | DX: Z93.2 Ileostomy status (principal) | CPT/HCPCS: 74270 ==

== ENCOUNTER 2024-01-10 07:36 | Inpatient (IN) | payer OTHER, SELFPAY ==
[2024-01-02 13:44] VITALS: BMI 23.6
[2024-01-10] VITALS (19 sets, daily range): BP systolic 108–180; BP diastolic 45–95; PULSE 60–105; RESP 12–20; TEMP 36.2–36.7; O2SAT 96–99
--- OUTSIDE RECORDS SUMMARY | 2024-01-10 07:54 | XMS_ITS ---
Author Organization [facility] Address [address] [place] [address] Care Team Providers Care Crab Picker Name Role Phone JAMI ESPINO Primary Care Provider Wes Llamas Unavailable [phone] REASON FOR VISIT screening PROBLEMS Problem Type ICD Code Onset Dates Problem Status W/U Status Risk SNOMED Code Notes Problem Diverticulosis of large intestine without perforation or abscess without bleeding (K57.30) Active confirmed Diverticul ar disease of colon (279607109) Encounters Encounter Location Date Provider Diagnosis [facility] Outpatient [address] [place] [phone] 10/03/2023 Wes Taylor Encounter for scre ening colonoscopy Z12.11 ; Rectal polyp K62.1 ; Diverticulosis of large intestine without perforation or abscess without bleeding K57.30 and Other hemorrhoids K64.8 ASSESSMENTS Encounter Date Diagnosis Assessment Notes Treatment Notes Treatment Clinical Notes 10/03/2023 Encounter for screening colonoscopy (ICD-10 - Z12.11) 10/03/2023 Rectal polyp (ICD-10 - K62.1) 10/03/2023 Diverticulosis of large intestine without perforation or abscess without bleeding (ICD-10 - K57.30) 10/03/2023 Other hemorrhoids (ICD-10 - K64.8) PLAN OF TREATMENT No Information
--- OUTSIDE RECORDS SUMMARY | 2024-01-10 07:55 | XMS_ITS ---
Author Organization [facility] Address [address] [place] [phone] Care Team Providers Care Triage Licensed Practical Nurse Name Role Phone JAMI ESPINO Primary Care Provider Wes Llamas [phone] PROBLEMS Problem Type ICD Code Onset Dates Problem Status W/U Status Risk SNOMED Code Notes Problem Diarrhea of presumed infectious origin (R19.7) Active confirmed Diarrhea of presumed infectious origin (60846932) Encounters Encounter Location Date Provider Diagnosis [facility] [address] [place] [phone] 07/14/2023 Wes Taylor Diarrhea of presumed infectious origin R19.7 ASSESSMENTS Encounter Date Diagnosis Assessment Notes Treatment Notes Treatment Clinical Notes 07/14/2023 Diarrhea of presumed infectious origin (ICD-10 - R19.7) PLAN OF TREATMENT Pending Test Test Name Order Date STOOL WBC 07/14/2023 C DIFFICILE RFLX PCR 07/14/2023 GI PANEL 07/14/2023
--- OUTSIDE RECORDS SUMMARY | 2024-01-10 07:55 | XMS_ITS ---
Author Organization [facility] Address [address] [place] [address] Care Team Providers Care Hub Cutter Name Role Phone JAMI ESPINO Primary Care Provider Wes Llamas [phone] ALLERGIES Allergen (clinical drug ingredient) Drug/Non Drug Allergy documented on EMR Reaction Allergy Type Onset Date Status Penicillin Unknown Drug Allergy Active codeine Codeine hives/swollen in throat Drug Allergy Active REASON FOR VISIT Patient presents today for diverticulitis SOCIAL HISTORY Tobacco Use: Social History Observation [...] Active confirmed Perforated diverticulum of large intestine (602306245) Problem Colon cancer screening (Z12.11) Active confirmed Colon can cer screening (450505234) VITAL SIGNS BMI 24.37 kg/m2 07/07/2023 Blood pressure systolic 00 mm Hg 07/07/19 24 Blood pressure diastolic 00 mm Hg 024 Height 5 ft 6 in in 07/07/2023 Temperature 98.4 degrees Fahrenheit 07/07/19 24 Weight 151 lbs 07/07/2023 Encounters Encounter Location Date Provider Diagnosis [facility] [address] [place] [address] 07/07/2023 Wes Taylor Diverticulitis of la rge intestine with abscess without bleeding K57.20 and Colon cancer screening Z12.11 ASSESSMENTS Encounter Date Diagnosis Assessment Notes Treatment Notes Treatment Clinical Notes 07/07/2023 Diverticulitis of large intestine with abscess without bleeding (ICD-10 - K57.20) 07/07/2023 Colon cancer screening (ICD-10 - Z12.11) PLAN OF TREATMENT Future Test Test Name Order Date COLONOSCOPY 07/07/2023 Next Appt Details Follow Up: prn, Reason: Progress Notes * Examination Category Sub-Category Detail Notes General Examination GENERAL APPEARANCE: pleasant , well nourished, well developed, in no acute distress HEAD: EYES: sclera non-icteric EARS: NOSE: THROAT: NECK/THYROID: no cervical lymphade nopathy, neck supple HEART: S1, S2 normal CHEST: LUNGS: clear to auscultatio n bilaterally ABDOMEN: normal bowel sounds, no guarding or rigidity, no guarding or rigidity, no masses palpable, soft, nontender, nondistended NEUROLOGIC: alert and oriented SKIN: nonjaundiced, no spi prateek angiomata EXTREMITIES: no edema PERIPHERAL PULSES: BACK: BREASTS: MUSCULOSKELETAL: MALE GENITOURINARY: LYMPH NODES: RECTAL EXAM: FEMALE GENITOURINARY: ORAL CAVITY: mucosa moist
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
--- NOTE | 2024-01-10 08:10 | MHC.SHP ---
Pre-Procedural Eval Section A - 24 Hr Update-Section A only Date of Service: 01/10/24 Section B - Complete if H&P > 30 days Chief Complaint: Ileostomy reversal Details of Present Illness: Has history of sigmoid resection with a diverting loop ileostomy for recurrent diverticulitis now for reversal of the ileostomy Relevant Family History (Specify if Yes): No Relevant Social History: None Present Medications: see Short Stay Collaborative assessment Medical History: Significant History (Anxiety, history of diverticulitis) Allergies: Allergies Allergy/AdvReac Type Severity Reaction Status Date / Time codeine [CODEINE] Allergy Unknown Facial Verified 01/10/24 07:56 Swelling, lip swelling Penicillins [PENICILLINS] Allergy Unknown hives, Verified 01/10/24 07:56 swelling quetiapine [From Seroquel] AdvReac Severe Agitated Verified 01/10/24 07:56 Review of Systems Sugical H&P ROS: Negative: Constitution, Cardiovascular, Respiratory, Gastrointestinal and Genitourinary Exam Surgical H&P Exam: Normal: HEENT, Normal: Heart and Normal: Extremities and Significant Findings: Abdomen (Ileostomy in place) Plan Diagnosis/Plan: Unchanged I have reviewed the history and physical and performed a pertinent physical examination on my patient. No changes have occurred unless specified. Time Spent With Patient Time: Total time managing care of this patient today ____ minutes.
[2024-01-10 08:13] LABS: Hematocrit 45.6 % (42.0-52.0); Hemoglobin 15.6 g/dl (14.0-18.0); Mean Corpuscular HGB Conc 34.2 g/dl (31.0-36.0); Mean Corpuscular Hemoglobin 29.9 pg (27.0-33.0); Mean Corpuscular Volume 87.5 fL (80.0-98.0); Mean Platelet Volume 7.8 fL (9.4-12.4); Platelet Count 335 X10*3/uL (160-400); Red Blood Count 5.21 X10*6/uL (4.60-5.80); Red Cell Distribution Width 16.2 % (11.0-16.0); White Blood Count 8.9 X10*3/uL (4.8-10.8)
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
[2024-01-10] MEDS: Lactated Ringers 1,000 ML 100 ML IVCONT ×2 (08:28→16:40)
--- NOTE | 2024-01-10 10:29 | W.PM.OPN ---
Operative Note Operative Note Date of Service: 01/10/24 Narrative: Preop diagnosis: Presence of loop ileostomy after sigmoid resection Postop diagnosis: The same Procedure: Reversal of loop ileostomy Surgeon: Victoriano Sherman MD bilingual executive assistant: LUCIA Naylor The patient is a 58-year-old male who had previously undergone sigmoid resection with a diverting loop ileostomy for recurrent diverticulitis. He understood the technique of reversal of the ileostomy. He was aware of the risks, benefits, and alternatives He was brought to the operating room. He was placed supine under general anesthesia via endotracheal tube. I closed both limbs of the loop ileostomy with a running silk 2-0 stitch. The abdomen was then prepped and draped in the usual sterile fashion. A surgical time-out was done. The patient received cefazolin 2 g IV preoperatively I infiltrated the planned line of incision with lidocaine 1%. I made an elliptical incision on the skin surrounding the ileostomy with a blade 15. This carried down through the full-thickness of the skin and subcutaneous fat until I visualized the fascia. I gently dissected the fascia off of the ileostomy until was able to clearly see the dorsal side of the bowel loops. I identified the interface of the bowel loop in the fascial edge. I used sharp dissection with Metzenbaum scissors to gently divide adhesions circumferentially. There were some dense adhesions as well as a parastomal hernia inferiorly so dissection was a little bit difficult on this side. Eventually was able to achieve circumferential dissection of the entire ileostomy on both the afferent and efferent limbs. I was able to pull up a longer length on both limbs. I identified the edge of the bowel loops on each side at the mesentery. I created a mesenteric window and divided each segment on both the efferent and afferent limbs. I divided the attached mesentery with serial ligation with Polysorb 3-0 ties. This ileostomy was then completely resected and sent as a specimen. There was note of good hemostasis on the divided mesentery I then proceeded to align the limbs of the bowel loops. I divided the apex of each staple line with curved Denis scissors. I entered the lumen of each limb. I positioned each arm of the SERGIO 60 mm stapler into the lumen at the anti mesenteric side. I made sure that there were no bowel loops caught to the staple lines. I fired the stapler to create our [id number] anastomosis. I closed the enterotomy with a TA 60 mm stapler to complete the anastomosis. I applied seromuscular sutures at the crotch of the staple line to release any tension using Polysorb 3-0 sutures replaced the bowel loops back into the peritoneal cavity. I examined the staple lines. This appeared intact. The bowel loop was viable. I had to lengthen the incision dividing fascia as well as the rectus muscle to healthy to allow me to reduce the anastomosed small bowel back into the peritoneal cavity. Hemostasis had been ensured using areas of the staple line with [id number] Polysorb 3-0 sutures. Once hemostasis was confirmed, I replaced the anastomosed bowel into the peritoneal cavity. We changed gloves. I closed the fascia with a running Maxon 1 stitch to include both the anterior and posterior sheaths . I copiously irrigated the closure site. Skin bobby were used to for skin closure. I inserted iodoform packing in the subcutaneous layer in between the bobby. The area was infiltrated with Marcaine 0.5% for postop analgesia. Dressings were applied. The procedure was completed The patient tolerated the procedure well. There were no immediate complications. Initial and final counts of sponges and instruments were correct. Estimated blood loss was about 25 cc The patient was extubated without difficulty and transferred to the recovery room with stable vital signs.
[2024-01-10] MEDS: HYDROmorphone HCl 0.5 MG/0.5 ML SYRINGE IVPUSH ×7 (11:05→22:49)
[2024-01-10] MEDS: HYDROmorphone HCl 1 MG/ML SYRINGE IVPUSH (11:45)
[2024-01-10 11:47] LABS: Anion Gap 13 (12-20); Blood Urea Nitrogen 10 mg/dL (9-16); Calcium 10.2 mg/dL (8.4-10.2); Carbon Dioxide 22 mmol/L (22-29); Chloride 109 mmol/L (96-108); Creatinine Clr Calc Pharmacy 80.8; Estimated Glomerular Filt Rate > 60; Glucose Fasting 103 mg/dL (60-99); Sodium 139 mmol/L (135-145)
[2024-01-10] MEDS: Nicotine 7 MG PATCH.TD24 TRANSDERMA (13:39)
--- NOTE | 2024-01-10 14:39 | PM.EVENT ---
Event Note Date of Service: 01/10/24 Event Note: seen postop seems to have good pain control alert abd soft, dressings dry pain mgt anxiety meds OOB await return of GI function family updated Time Spent With Patient Time: Total time managing care of this patient today ____ minutes.
--- NOTE | 2024-01-10 14:46 | PHA.MEDREC ---
Addendum entered by Stephanie Mccann RPh 01/10/24 15:09: reviewed by [facility]. Original Note: Pharmacy Consult ? Medication Reconciliation Pharmacy has reviewed the medication reconciliation done by nursing.
[2024-01-10] MEDS: oxyCODONE HCl Immed Release 5 MG TABLET PO ×2 (16:39→21:12)
[2024-01-10] MEDS: Acetaminophen 1,000 MG/100 ML PIGGYBACK 400 MG IV ×2 (16:39→21:14)
[2024-01-10] MEDS: 0.9 % Sodium Chloride Flush 3 ML SYRINGE IVFLUSH (16:39)
[2024-01-10] MEDS: Melatonin 3 MG TABLET 6 MG PO (21:12)
[2024-01-11] MEDS: LORazepam 0.5 MG TABLET PO (00:40)
[2024-01-11] MEDS: oxyCODONE HCl Immed Release 5 MG TABLET PO ×4 (01:26→20:03)
[2024-01-11] MEDS: HYDROmorphone HCl 0.5 MG/0.5 ML SYRINGE IVPUSH (02:47)
[2024-01-11] MEDS: Acetaminophen 1,000 MG/100 ML PIGGYBACK 400 MG IV ×3 (02:48→20:04)
[2024-01-11] MEDS: Lactated Ringers 1,000 ML 100 ML IVCONT ×3 (02:50→23:35)
[2024-01-11 03:19] VITALS: BP 128/71; PULSE 63; RESP 18; TEMP 36.5; O2SAT 97
[2024-01-11 06:28] LABS: MANUAL DIFF FLAG NO
[2024-01-11 06:56] LABS: Basophils Absolute Auto 0.1 X10*3/uL (0.0-0.2); Basophils Percent Auto 0.4 % (0-2); Eosinophils Percent Auto 0.3 % (0-4); Hematocrit 37.5 % (42.0-52.0); Hemoglobin 12.7 g/dl (14.0-18.0); Imm Gran Abs Auto 0.05 X10*3/uL (0.00-0.03); Imm Gran Pct Auto 0.4 % (0.0-0.4); Lymphocytes Absolute Auto 2.2 X10*3/uL (1.2-4.9); Lymphocytes Percent Auto 16.3 % (20-40); Mean Corpuscular HGB Conc 33.9 g/dl (31.0-36.0); Mean Corpuscular Hemoglobin 29.4 pg (27.0-33.0); Mean Corpuscular Volume 86.8 fL (80.0-98.0); Mean Platelet Volume 8.4 fL (9.4-12.4); Monocytes Absolute Auto 1.1 X10*3/uL (0.1-1.2); Monocytes Percent Auto 8.4 % (2-11); Neutrophils Absolute Auto 9.8 x10*3/uL (2.0-8.3); Neutrophils Percent Auto 74.2 % (45-73); Platelet Count 312 X10*3/uL (160-400); Red Blood Count 4.32 X10*6/uL (4.60-5.80); Red Cell Distribution Width 15.9 % (11.0-16.0); White Blood Count 13.2 X10*3/uL (4.8-10.8)
[2024-01-11 07:22] LABS: Anion Gap 11 (12-20); Blood Urea Nitrogen 6 mg/dL (9-16); Calcium 9.2 mg/dL (8.4-10.2); Carbon Dioxide 25 mmol/L (22-29); Chloride 108 mmol/L (96-108); Creatinine Clr Calc Pharmacy 100.7; Estimated Glomerular Filt Rate > 60; Glucose Fasting 91 mg/dL (60-99); Potassium 4.3 mmol/L (3.3-5.1); Sodium 140 mmol/L (135-145)
--- NOTE | 2024-01-11 07:38 | P.PNGS_ITS ---
Subjective Subjective Date of Service: 01/11/24 <Hyun Naylor PA-C - Last Filed: 01/11/24 07:43> 01/11/24 <Victoriano Sherman MD - Last Filed: 01/11/24 09:59> Interval history: Very sore this morning, c/o severe pain at incision site only partially relieved with IV dilaudid. Unable to take deep breaths and has not been able to get OOB due to pain. Tolerating clear liquids without nausea/vomiting. Passing flatus and feels hungry. <Hyun Naylor PA-C - Last Filed: 01/11/24 07:43> Physical Exam 2 Vital Signs: Vital Signs: Last Vital Signs Temp 97.7 F 01/11/24 03:19 Pulse 63 01/11/24 03:19 Resp 18 01/11/24 03:19 BP 128/71 01/11/24 03:19 Pulse Ox 97 01/11/24 03:19 O2 Del Method Room Air 01/11/24 03:19 O2 Flow Rate 6 01/10/24 11:45 BMI result Body Mass Index 23.6 <Hyun Naylor PA-C - Last Filed: 01/11/24 07:43> Const: General: comfortable, no acute distress and alert <DAMON Loredo Last Filed: 01/11/24 07:43> Orientation/consciousness: patient oriented x3 <DAMON Loredo Last Filed: 01/11/24 07:43> Resp: Effort & Inspection: normal respiratory effort <DAMON Loredo Last Filed: 01/11/24 07:43> GI: Inspection: No distended and Yes incision (dressing intact) <DAMON Loredo Last Filed: 01/11/24 07:43> Palpation (GI): Soft to palpation, Tenderness to palpation present (GI) (surrounding incision), no guarding and not rigid <DAMON Loredo Last Filed: 01/11/24 07:43> Percussion: Yes normal to percussion <DAMON Loredo Last Filed: 01/11/24 07:43> Skin: General skin exam: no rashes or lesions noted <Hyun Naylor PA-C - Last Filed: 01/11/24 07:43> Neuro: General: patient oriented x3 and moves all extremities <Hyun Naylor PA-C - Last Filed: 01/11/24 07:43> Objective Data Active Medications Calcium Carbonate (Calcium Carbonate 750 Mg Tab.Chew) 750 mg PO Q4H PRN PRN Reason: Heartburn Heparin Sodium (Porcine) (Heparin Sodium,Porcine 5,000 Unit/Ml Vial) 5,000 unit SUBCUT Q12H [facility] Hydromorphone HCl (Hydromorphone Hcl 0.5 Mg/0.5 Ml Syringe) 1 mg IVPUSH Q4H PRN; Protocol PRN Reason: Pain, Severe (Pain Scale 7-10) Lactated Ringer's (Lr) 1,000 mls @ 100 mls/hr IVCONT .Q10H [facility] Last Admin: 01/11/24 02:50 Dose: 100 mls/hr Documented By: SHAD Acetaminophen (Ofirmev) 1,000 mg in 100 mls @ 400 mls/hr IV Q6H [facility] Last Infusion: 01/11/24 03:03 Dose: Infused Documented By: SHAD Lorazepam (Lorazepam 0.5 Mg Tablet) 0.5 mg PO Q8H PRN PRN Reason: anxiety Last Admin: 01/11/24 00:40 Dose: 0.5 mg Documented By: SHAD Melatonin (Melatonin 3 Mg Tablet) 6 mg PO BEDTIME PRN PRN Reason: Insomnia Last Admin: 01/10/24 21:12 Dose: 6 mg Documented By: SHAD Nicotine (Nicotine 7 Mg Patch.Td24) 7 mg TRANSDERMA DAILY [facility] Last Admin: 01/10/24 13:39 Dose: 7 mg Documented By: DELPHINE Oxycodone HCl (Oxycodone Hcl Immed Release 5 Mg Tablet) 5 mg PO Q4H PRN PRN Reason: Pain, Moderate(Pain Scale 4-6) Last Admin: 01/11/24 01:26 Dose: 5 mg Documented By: SHAD Sodium Chloride (0.9 % Sodium Chloride Flush 3 Ml Syringe) 3 ml IVFLUSH QSHIFT [facility] Last Admin: 01/11/24 00:00 Dose: 3 ml Documented By: SHAD <Hyun Naylor PA-C - Last Filed: 01/11/24 07:43> Labs CBC & Chem 7: 01/11/24 06:07 01/11/24 06:07 <Hyun Naylor PA-C - Last Filed: 01/11/24 07:43> Labs: Laboratory Results - last 24 hr 01/10/24 01/11/24 08:08 06:07 MCV 87.5 86.8 MCH 29.9 29.4 MCHC 34.2 33.9 RDW 16.2 H 15.9 Plt Count 335 312 MPV 7.8 L 8.4 L Immature Gran % (Auto) 0.4 Neut % (Auto) 74.2 H Lymph % (Auto) 16.3 L [place] % (Auto) 8.4 Eos % (Auto) 0.3 Baso % (Auto) 0.4 Lymph # (Auto) 2.2 [place] # (Auto) 1.1 Eos # (Auto) 0.0 Baso # (Auto) 0.1 Abs Immat Gran (auto) 0.05 H Absolute Neuts (auto) 9.8 H Absolute Nucleated RBC 0.000 0.000 Nucleated RBC % (auto) 0.0 0.0 Anion Gap 13 11 L Estim Creat Clear Calc 80.8 100.7 Estimated GFR > 60 > 60 Fasting Glucose 103 H 91 Calcium 10.2 D 9.2 D <Hyun Naylor PA-C - Last Filed: 01/11/24 07:43> Procedures Date of Service Date of Service: 01/11/24 <Hyun Naylor PA-C - Last Filed: 01/11/24 07:43> 01/11/24 <Victoriano Sherman MD - Last Filed: 01/11/24 09:59> Progress Note: A&P Assessment and plan (1) Ileostomy in place: Status: Acute <Hyun Naylor PA-C - Last Filed: 01/11/24 07:43> Assessment and Plan: States he has passed flatus overnight Complains of pain on the incision, appropriate to postop course Looks well overall Tolerating clear liquids Okay to advance diet Abdomen soft and benign Seen and examined independently <Victoriano Sherman MD - Last Filed: 01/11/24 09:59> Assessment and Plan: POD #1 s/p reversal of loop ileostomy. Doing well post but c/o difficulty with pain control. VSS. Abd exam benign with appropriate post op tenderness. Dressing intact, will return later today to change dressing, advance wound ish once pain better controlled. Increase IV dilaudid dose. Advance to solid diet. Encouraged OOB/ambulation and IS use today. Leukocytosis on labs this am likely reactive. Patient comfortable with plan. <Hyun Naylor PA-C - Last Filed: 01/11/24 07:43> Time Spent With Patient Time: Total time managing care of this patient today ____ minutes. <Hyun Naylor PA-C - Last Filed: 01/11/24 07:43> Quality Stroke Does the patient have a stroke diagnosis?: No <Hyun Naylor PA-C - Last Filed: 01/11/24 07:43> VTE Prior VTE?: No <Hyun Naylor PA-C - Last Filed: 01/11/24 07:43> VTE Risk Level:: Medical - moderate - high <Hyun Naylor PA-C - Last Filed: 01/11/24 07:43> VTE Device Contraindication: N/A - Device Ordered <Hyun Naylor PA-C - Last Filed: 01/11/24 07:43> VTE Drug Contraindication: N/A - Med Ordered <Hyun Naylor PA-C - Last Filed: 01/11/24 07:43>
[2024-01-11 07:42] VITALS: BP 154/82; PULSE 67; RESP 19; TEMP 36.5; O2SAT 94
[2024-01-11] MEDS: HYDROmorphone HCl 0.5 MG/0.5 ML SYRINGE 1 MG IVPUSH ×4 (07:46→21:33)
[2024-01-11] MEDS: 0.9 % Sodium Chloride Flush 3 ML SYRINGE IVFLUSH ×4 (07:47→23:38)
[2024-01-11] MEDS: Nicotine 7 MG PATCH.TD24 TRANSDERMA (08:59)
--- NOTE | 2024-01-11 09:51 | MHC.CM.PN ---
Pt self-care, lives at home with his partner and 2 adult children. Pts partner will transport him home at discharge. HCP on file and verified. Pt states he would not be interested in VNA services at discharge. PCP: Dr. Lorenzo Burns
[2024-01-11 15:35] VITALS: BP 152/73; PULSE 64; RESP 19; TEMP 36.7; O2SAT 97
--- NOTE | 2024-01-11 15:52 | PM.EVENT ---
Event Note Date of Service: 01/11/24 Event Note: Seen on afternoon rounds Says he has been passing flatus Tolerating diet Denies nausea Abdomen soft He looks well Await full return of GI function Pain management Ambulate Time Spent With Patient Time: Total time managing care of this patient today ____ minutes.
[2024-01-11 19:51] VITALS: BP 136/80; PULSE 70; RESP 20; TEMP 37.2; O2SAT 98
[2024-01-11] MEDS: Melatonin 3 MG TABLET 6 MG PO (20:04)
[2024-01-11] MEDS: Heparin Sodium,Porcine 5,000 UNIT/ML VIAL 5000 UNIT SUBCUT (21:34)
[2024-01-12] MEDS: oxyCODONE HCl Immed Release 5 MG TABLET PO ×2 (00:34→05:20)
[2024-01-12] MEDS: HYDROmorphone HCl 0.5 MG/0.5 ML SYRINGE 1 MG IVPUSH ×2 (02:17→06:47)
[2024-01-12 03:17] VITALS: BP 149/73; PULSE 67; RESP 20; TEMP 37.1; O2SAT 96
[2024-01-12] MEDS: Acetaminophen 1,000 MG/100 ML PIGGYBACK 400 MG IV ×2 (03:22→09:32)
[2024-01-12 08:00] VITALS: BP 142/81; PULSE 65; RESP 20; TEMP 36.6; O2SAT 97
--- NOTE | 2024-01-12 08:28 | PM.PNGS ---
Subjective Subjective Date of Service: 01/12/24 <Hyun Naylor PA-C - Last Filed: 01/12/24 08:32> 01/12/24 <Victoriano Sherman MD - Last Filed: 01/12/24 08:44> Interval history: Feels great this morning. Tolerating solid diet, had some gas pains last night but improved. Passing flatus and moving bowels. OOB and ambulating. Pain well controlled. <Hyun Naylor PA-C - Last Filed: 01/12/24 08:32> Physical Exam Vital Signs: Vital Signs: Last Vital Signs Temp 98.7 F 01/12/24 03:17 Pulse 67 01/12/24 03:17 Resp 20 01/12/24 03:17 BP 149/73 H 01/12/24 03:17 Pulse Ox 96 01/12/24 03:17 O2 Del Method Room Air 01/12/24 03:17 O2 Flow Rate 6 01/10/24 11:45 BMI result Body Mass Index 23.6 <Hyun Naylor PA-C - Last Filed: 01/12/24 08:32> Const: General: comfortable, no acute distress and alert <DAMON Loredo Last Filed: 01/12/24 08:32> Orientation/consciousness: patient oriented x3 <DAMON Loredo Last Filed: 01/12/24 08:32> Resp: Effort & Inspection: normal respiratory effort <DAMON Loredo Last Filed: 01/12/24 08:32> GI: Other: dressing clean and intact, wound ish removed by Dr. Sherman earlier this morning <Hyun Naylor PA-C - Last Filed: 01/12/24 08:32> Inspection: No distended <DAMON Loredo Last Filed: 01/12/24 08:32> Palpation (GI): Soft to palpation, Tenderness to palpation present (GI) (mild incisional) and no guarding <DAMON Loredo Last Filed: 01/12/24 08:32> Percussion: Yes normal to percussion <DAMON Loredo Last Filed: 01/12/24 08:32> Skin: General skin exam: no rashes or lesions noted <Hyun Naylor PA-C - Last Filed: 01/12/24 08:32> Neuro: General: patient oriented x3 and moves all extremities <Hyun Naylor PA-C - Last Filed: 01/12/24 08:32> Objective Data Active Medications Calcium Carbonate (Calcium Carbonate 750 Mg Tab.Chew) 750 mg PO Q4H PRN PRN Reason: Heartburn Heparin Sodium (Porcine) (Heparin Sodium,Porcine 5,000 Unit/Ml Vial) 5,000 unit SUBCUT Q12H [facility] Last Admin: 01/11/24 21:34 Dose: 5,000 unit Documented By: SHAD Hydromorphone HCl (Hydromorphone Hcl 0.5 Mg/0.5 Ml Syringe) 1 mg IVPUSH Q4H PRN; Protocol PRN Reason: Pain, Severe (Pain Scale 7-10) Last Admin: 01/12/24 06:47 Dose: 1 mg Documented By: SHAD Acetaminophen (Ofirmev) 1,000 mg in 100 mls @ 400 mls/hr IV Q6H [facility] Last Infusion: 01/12/24 05:18 Dose: Infused Documented By: LAINEY Lorazepam (Lorazepam 0.5 Mg Tablet) 0.5 mg PO Q8H PRN PRN Reason: anxiety Last Admin: 01/11/24 00:40 Dose: 0.5 mg Documented By: SHAD Melatonin (Melatonin 3 Mg Tablet) 6 mg PO BEDTIME PRN PRN Reason: Insomnia Last Admin: 01/11/24 20:04 Dose: 6 mg Documented By: SHAD Nicotine (Nicotine 7 Mg Patch.Td24) 7 mg TRANSDERMA DAILY [facility] Last Admin: 01/11/24 08:59 Dose: 7 mg Documented By: JENI Oxycodone HCl (Oxycodone Hcl Immed Release 5 Mg Tablet) 5 mg PO Q4H PRN PRN Reason: Pain, Moderate(Pain Scale 4-6) Last Admin: 01/12/24 05:20 Dose: 5 mg Documented By: LAINEY Sodium Chloride (0.9 % Sodium Chloride Flush 3 Ml Syringe) 3 ml IVFLUSH QSHIFT [facility] Last Admin: 01/11/24 23:38 Dose: 3 ml Documented By: SHAD <Hyun Naylor PA-C - Last Filed: 01/12/24 08:32> Labs CBC & Chem 7: 01/11/24 06:07 01/11/24 06:07 <Hyun Naylor PA-C - Last Filed: 01/12/24 08:32> Procedures Date of Service Date of Service: 01/12/24 <Hyun Naylor PA-C - Last Filed: 01/12/24 08:32> 01/12/24 <Victoriano Sherman MD - Last Filed: 01/12/24 08:44> Progress Note: A&P Assessment and plan (1) Status post reversal of ileostomy: Status: Acute <Hyun Naylor PA-C - Last Filed: 01/12/24 08:32> Assessment and Plan: Passing good flatus Tolerating diet Has been ambulating Feels well Abdomen soft He says he feels ready to be discharged We will re-evaluate later on today Seen and examined independently <Victoriano Sherman MD - Last Filed: 01/12/24 08:44> Assessment and Plan: POD #2 s/p reversal of loop ileostomy. Continues to do well post op, tolerating solid diet and now with good GI function. VSS. Abd exam benign with appropriate post op tenderness. Dressing clean and intact, wound ish removed earlier today by Dr. Sherman. Dc IV dilaudid. Discussed possible home later today if comfortable on oral analgesics. Will return later today. Patient comfortable with plan. <Hyun Naylor PA-C - Last Filed: 01/12/24 08:32> Time Spent With Patient Time: Total time managing care of this patient today ____ minutes. <DAMON Loredo Last Filed: 01/12/24 08:32> Quality Stroke Does the patient have a stroke diagnosis?: No <DAMON Loredo Last Filed: 01/12/24 08:32> VTE Prior VTE?: No <DAMON Loredo Last Filed: 01/12/24 08:32> VTE Risk Level:: Medical - moderate - high <Hyun Naylor PA-C - Last Filed: 01/12/24 08:32> VTE Device Contraindication: N/A - Device Ordered <DAMON Loredo Last Filed: 01/12/24 08:32> VTE Drug Contraindication: N/A - Med Ordered <DAMON Loredo Last Filed: 01/12/24 08:32>
--- NOTE | 2024-01-12 09:07 | HO.POSTANES ---
Post Anesthesia Evaluation Post Anesthesia Evaluation Date of Service: 01/10/24 Vital Signs: Vital Signs Temp Pulse Resp BP Pulse Ox O2 Del Method 01/12/24 08:00 97.8 F 65 20 142/81 H 97 Room Air 01/12/24 03:17 98.7 F 67 20 149/73 H 96 Room Air Anesthesia: Regional and General Mental Status: Awake Pain Control: Satisfactory Nausea/Vomiting: None Hydration: Adequate Anesthesia-Related Issues: No Anes. Related Issues
[2024-01-12] MEDS: Nicotine 7 MG PATCH.TD24 TRANSDERMA (09:29)
[2024-01-12] MEDS: oxyCODONE HCl Immed Release 5 MG TABLET 10 MG PO (09:30)
[2024-01-12] MEDS: 0.9 % Sodium Chloride Flush 3 ML SYRINGE IVFLUSH (09:33)
[2024-01-12] MEDS: Docusate Sodium 100 MG CAPSULE PO (09:37)
[2024-01-12] MEDS: Heparin Sodium,Porcine 5,000 UNIT/ML VIAL 5000 UNIT SUBCUT (09:37)
[2024-01-12 12:00] VITALS: BP 129/105; PULSE 69; RESP 20; TEMP 36.4; O2SAT 95
[2024-01-12] MEDS: Acetaminophen 325 MG TABLET 650 MG PO (12:39)
--- NOTE | 2024-01-12 15:41 | PM.DS ---
DS: Providers Provider Date of Service: 01/12/24 Date of admission: 01/10/24 07:36 Date of discharge: 01/12/24 Primary care physician: Lorenzo Burns MD Attending physician on admission: Victoriano Sherman Attending physician on discharge: Victoriano Sherman DS: Diagnosis Discharge Diagnosis (1) Status post reversal of ileostomy: Status: Acute DS: Summary Hospital Course Hospital Course: HPI AT ADMISSION: 58-year-old male who had previously undergone sigmoid resection with a diverting loop ileostomy for recurrent diverticulitis. He now presents for reversal of the loop ileostomy. HOSPITAL COURSE: On 01/10/24, reversal of loop ileostomy was performed by Dr. Sherman without complication. The patient tolerated the procedure well and was admitted post operatively for observation. He had an uncomplicated recovery course. He remained inpatient for 2 days post operatively for pain control and while awaiting return of GI function. On the day of discharge, he was tolerating a solid diet without nausea or vomiting, had good pain control on oral analgesics, was ambulating without difficulty and had good GI function. He was hemodynamically stable. His abdomen was benign with clean incision, his wound ish were removed. He was discharged to home on 01/12/24 in stable condition. He is to follow up in the office in 2 weeks. Status at Discharge Functional status at discharge: independent ambulation Overall status at discharge: patient is progressing back to baseline Time Attestation Discharge Coordination Time (in mins): 35 Quality: Safe Use of Opioids Does Pt have an Active Cancer Diagnosis on the Problem List?: No Quality: Stroke Does the patient have a stroke diagnosis?: No Physical Exam Vital Signs: Vital Signs: Last Vital Signs Temp 97.6 F 01/12/24 12:00 Pulse 69 01/12/24 12:00 Resp 20 01/12/24 12:00 BP 129/105 H 01/12/24 12:00 Pulse Ox 95 01/12/24 12:00 O2 Del Method Room Air 01/12/24 12:00 O2 Flow Rate 6 01/10/24 11:45 BMI result Body Mass Index 23.6 Const: General: comfortable, no acute distress and alert Orientation/consciousness: patient oriented x3 Resp: Effort & Inspection: normal respiratory effort GI: Inspection: No distended and Yes incision (clean, bobby intact, packing removed) Palpation (GI): Soft to palpation, Tenderness to palpation present (GI) (mild incisional) and no guarding Neuro: General: patient oriented x3 DS: Data Data Completed and Pending Completed studies during hospitalization [Text1]: 01/10/24 10:01 Surgical [PTH] Routine Ileostomy, reversal: Ileocutaneous anastomosis with mild chronic inflammation, fibrosis and foreign body giant cell reaction. Procedures Bypass Ileum to Cutaneous, Open Approach (10/04/23) Drainage of Pelvic Cavity with Drainage Device, Percutaneous Endoscopic Approach (06/13/23) Drainage of Sigmoid Colon with Drainage Device, Percutaneous Approach (05/13/23) Excision of Sigmoid Colon, Open Approach (10/04/23) Release Peritoneum, Open Approach (10/04/23) Discharge Plan Discharge Anticipated Discharge Date/Time: 01/13/24 10:15 Patient Disposition: Home Health Service Discharge Diagnosis: s/p ileostomy reversal Referrals: Victoriano Sherman MD [Physician] - 2 Weeks Lorenzo Burns MD [Primary Care Provider] - 1 Week Discharge Medications: Continued acetaminophen 500 mg Tablet 1,000 mg PO QID PRN (Reason: Pain) calcium carbonate [Tums] 200 mg calcium (500 mg) Tablet,Chewable 200 mg PO BID PRN (Reason: Acid Reflux) Discontinued (DME) Coloplast colostomy bags 15,521 See Rx Instructions .Route .MEDSUPPLY Qty: 20 6RF Rx Instructions: As directed (DME) No-sting prep wipes 30 per month See Rx Instructions .Route .MEDSUPPLY Qty: 1 6RF Rx Instructions: As directed (DME) Colostomy deodorizing drops 1 bottle See Rx Instructions .Route .MEDSUPPLY Qty: 1 6RF Rx Instructions: As directed No Action oxycodone 5 mg tablet 5 mg PO Q4H PRN (Reason: pain (scale score 7-10)) Qty: 30 0RF Rx Instructions: Partial Fill upon patient request. Take 1-2 tablets every 4-6 hours as needed for pain. Discharge Orders: Discharge Order (Routine); Ordered 01/12/24 Ordered By: Hyun Naylor Diet: Advance to usual diet Activity on Discharge: No heavy lifting Stand Alone Forms: Patient Portal Discharge page Print Language: Romansh Activity Restrictions/Additional Instructions: If the incision area is tender, you may apply an ice pack for short intervals (No more than 20 minutes on, followed by at least 20 minutes off). Do not apply heat. Do not use creams, lotions, or topical antibiotics. These can cause infection or allergic reaction. Ok to shower. You have bobby closing your incision and these will be removed approximately 10-14 days after surgery. Dry dressing to incision site while the area drains. NO HEAVY LIFTING (>10lbs) or strenuous activity. Follow up in office. ([phone]) Call Your Doctor If: -Your temperature exceeds 101.5? F -You experience excessive pain or swelling -You have an unexpected reaction to medication -You have excessive bleeding -You experience continued vomiting/nausea -Your incision begins to separate -Your incision shows signs of infection such as increased redness, swelling, excessive pain, drainage (light blood or clear fluid is normal) or heat Care Plan Goals: Return to baseline health and resume normal activities following recovery period. Health Concerns: hx of recurrent diverticulitis s/p sigmoid resection with diverting loop ileostomy Plan of Treatment: s/p ileostomy reversal f/u in office in 2 weeks Assessment: Doing well post op. Discharge Date/Time: 01/12/24 13:05
== END 2024-01-12 13:05 | disposition home health service (06) | DRG 230 ==
LOC: HO.SSSA 07:53 → HO.IMC 12:01
PROVIDERS: Nurse Practitioner; Physician Assistant Surgical; Admitting Provider Surgery; PCP Internal Medicine; Visit Provider Surgery
PROC: 0DBB0ZZ Excision of Ileum, Open Approach (ICD-10-PCS; CPT 44620; principal; 2024-01-10 09:00)
DX: Z43.2 Encounter for attention to ileostomy (principal); F17.210 Nicotine dependence, cigarettes, uncomplicated; Z71.6 Tobacco abuse counseling; Z79.899 Other long term (current) drug therapy
CPT/HCPCS: 36415; 80048; 85025; 85027; 88304; J0131; J0690; J1100; J1170; J1644; J2250; J2405; J2704; J2795; J3010; J7120

== ENCOUNTER → 2024-01-10 07:36 | Outpatient (BNV) | payer OTHER, SELFPAY | PROVIDERS: Admitting Provider Surgery; PCP Internal Medicine; Visit Provider Surgery | DX: Z93.2 Ileostomy status (principal) | CPT/HCPCS: 44625; 99024; 99499 ==

== ENCOUNTER 2024-01-23 10:55 | Outpatient (AMB) | payer OTHER, SELFPAY ==
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
== END 2024-01-23 11:12 | disposition home or self-care (01) ==
PROVIDERS: PCP Internal Medicine; Visit Provider Surgery
DX: Z98.890 Other specified postprocedural states (principal)
CPT/HCPCS: 99024

== ENCOUNTER → 2024-01-23 10:55 | Outpatient (BNVA) | payer OTHER, SELFPAY | PROVIDERS: PCP Internal Medicine; Visit Provider Surgery | DX: Z43.2 Encounter for attention to ileostomy (principal) | CPT/HCPCS: 99212 ==

== ENCOUNTER 2024-02-20 12:59 | Outpatient (AMB) | payer OTHER, SELFPAY ==
[2024-02-20 13:00] VITALS: BMI 24.2
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
== END 2024-02-20 13:40 | disposition home or self-care (01) ==
LOC: HO.HGS 12:59
PROVIDERS: PCP Internal Medicine; Visit Provider Surgery
DX: Z98.890 Other specified postprocedural states (principal)
CPT/HCPCS: 99024

== ENCOUNTER → 2024-02-20 12:59 | Outpatient (BNVA) | payer OTHER, SELFPAY | PROVIDERS: PCP Internal Medicine; Visit Provider Surgery | DX: Z98.890 Other specified postprocedural states (principal) | CPT/HCPCS: 99212 ==

== ENCOUNTER 2024-06-13 10:39 | Emergency (ER) | payer OTHER, SELFPAY ==
--- NOTE | ~2024-06-13 | CT_ITS ---
EXAMINATION: CT ABDOMEN AND PELVIS WITH CONTRAST CLINICAL INFORMATION: Lower abdominal pain, history of diverticulitis. COMPARISON: 08/30/23. TECHNIQUE: Multidetector volumetric images were obtained from the superior aspect of the liver through the pubic symphysis following administration 85 mL of Omnipaque 350 intravenous contrast. Sagittal and coronal reformatted images were obtained on the technologist's workstation. Oral contrast: No This CT examination was performed using dose optimization techniques as appropriate, variously including the following: *Automated exposure control *Adjustment of mA and/or kV according to patient size (this includes techniques or standardized protocols for targeted exams where dose is matched to indication/reason for exam; i.e. extremities or head) *Use of iterative reconstruction technique FINDINGS: LUNG BASES: Lung bases demonstrate dependent changes. Lung bases otherwise clear. Heart size normal. No effusions. LIVER, GALLBLADDER, AND BILIARY TREE: The liver is normal in size, shape, and attenuation. No focal hepatic lesion or biliary ductal dilatation is present. The gallbladder is unremarkable with no evidence of radiopaque gallstones, gallbladder wall thickening, or obvious pericholecystic inflammatory changes. PANCREAS: Unremarkable. SPLEEN: Unremarkable. ADRENAL GLANDS: Bilateral hyperplasia. KIDNEYS AND URETERS: The kidneys are normal in size, shape, and attenuation. No hydronephrosis, hydroureter, or calculi seen. No perinephric stranding. BLADDER: Underdistended. Mild diffuse thick walled, nonspecific. Mild perivesicular stranding. GASTROINTESTINAL TRACT: There are prominent jejunal mucosal folds and mildly less prominent ileal fold pattern. Mild enteritis is a possibility. Also consider malabsorption disorders. The stomach is distended with a recent meal. The duodenum demonstrates a prominent fold pattern. There are rare colonic diverticula. There is no wall thickening or inflammation of the colon or rectum. There is a colorectal anastomosis noted. No complication evident. Normal appendix. ABDOMINAL WALL: There has been prior hernia repair in the lower abdominal/pelvic region with mesh. There is a probable recurrent small fat-containing left inguinal hernia. LYMPH NODES: None enlarged by size criteria. Increased number of small lymph nodes throughout the small and large bowel mesentery. This is presumably reactive. VASCULAR: Moderate vascular calcification. No aneurysm. PELVIC VISCERA: Moderate prostate enlargement, measuring diameter of 2.3 cm. Central calcifications present. OSSEOUS STRUCTURES: No suspicious lytic or blastic bone lesions. Bone island in the left iliac wing. Degenerative changes of the lower lumbar spine. CT/CT abdomen pelvis w IV con IMPRESSION: 1. Diffuse fold thickening and enhancement throughout the duodenum and small bowel, suspicious for enteritis. Correlate for signs and symptoms. Finding is supported by increased number of small lymph nodes throughout the small bowel mesentery, presumably reactive. 2. A few scattered colonic diverticula without acute colonic or rectal finding. There is a colorectal anastomosis without complication. 3. Mildly thick-walled urinary bladder with mild perivesicular stranding. This was seen previously. Correlate for UTI. 4. Prior inguinal hernia repair, with probable small recurrent left inguinal hernia. 5. Ancillary findings as discussed. Electronically signed by: Kenneth James MD 06/13/2024 04:43 PM KAYODE GONCALVES
[2024-06-13 11:12] VITALS: BP 171/89; PULSE 67; RESP 16; TEMP 36.8; O2SAT 98; BMI 21.8
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
[2024-06-13 12:17] LABS: MANUAL DIFF FLAG NO
[2024-06-13 12:19] LABS: Basophils Absolute Auto 0.1 X10*3/uL (0.0-0.2); Basophils Percent Auto 1.3 % (0-2); Eosinophils Absolute Auto 0.1 X10*3/uL (0.0-0.4); Eosinophils Percent Auto 1.4 % (0-4); Hematocrit 36.6 % (42.0-52.0); Hemoglobin 12.8 g/dl (14.0-18.0); Imm Gran Abs Auto 0.01 X10*3/uL (0.00-0.03); Imm Gran Pct Auto 0.2 % (0.0-0.4); Lymphocytes Absolute Auto 1.6 X10*3/uL (1.2-4.9); Lymphocytes Percent Auto 28.4 % (20-40); Mean Corpuscular Hemoglobin 29.2 pg (27.0-33.0); Mean Corpuscular Volume 83.4 fL (80.0-98.0); Mean Platelet Volume 8.2 fL (9.4-12.4); Monocytes Absolute Auto 0.4 X10*3/uL (0.1-1.2); Monocytes Percent Auto 7.6 % (2-11); Neutrophils Absolute Auto 3.4 x10*3/uL (2.0-8.3); Neutrophils Percent Auto 61.1 % (45-73); Platelet Count 307 X10*3/uL (160-400); Red Blood Count 4.39 X10*6/uL (4.60-5.80); Red Cell Distribution Width 16.2 % (11.0-16.0); White Blood Count 5.5 X10*3/uL (4.8-10.8)
[2024-06-13 12:28] LABS: INTERNATIONAL NORM RATIO 0.9 (0.9-1.1); Prothrombin Time 10.7 SEC (10.9-12.4)
[2024-06-13 12:41] LABS: Alanine Aminotransferase 22 U/L (0-40); Albumin Level 4.4 g/dL (3.5-5.0); Alkaline Phosphatase 85 U/L (39-117); Anion Gap 12 (12-20); Aspartate Amino Transferase 25 U/L (5-37); Bilirubin Total 0.3 mg/dL (0.0-1.0); Blood Urea Nitrogen 14 mg/dL (9-16); Calcium 9.3 mg/dL (8.4-10.2); Carbon Dioxide 23 mmol/L (22-29); Chloride 106 mmol/L (96-108); Creatinine Clr Calc Pharmacy 99.5; Estimated Glomerular Filt Rate > 60; Glucose Random 103 mg/dL (60-115); Lactic Acid 0.7 mmol/L (0.5-2.0); Lipase 13 U/L (8-78); Magnesium 1.8 mg/dL (1.6-2.6); Sodium 137 mmol/L (135-145); Total Protein 7.3 g/dL (6.5-8.0)
[2024-06-13 13:03] LABS: Influenza A PCR NEGATIVE (Negative); Influenza B PCR NEGATIVE (Negative); Resp Syncy Virus RNA Qual PCR NEGATIVE (Negative); SARS COV2 PCR INHOUSE NEGATIVE (Negative)
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
--- OUTSIDE RECORDS SUMMARY | 2024-06-13 14:08 | XMS_ITS ---
Author Organization [facility] Address [address] [place] [address] Care Team Providers Care Franchise Sales Manager Name Role Phone JAMI ESPINO Primary Care Provider Wes Llamas [phone] ALLERGIES Allergen (clinical drug ingredient) Drug/Non Drug [...] Active confirmed Perforated diverticulum of large intestine (540871966) Problem Colon cancer screening (Z12.11) Active confirmed Colon can cer screening (231895523) VITAL SIGNS BMI 24.37 kg/m2 07/07/2023 Blood pressure systolic 00 mm Hg 07/07/19 24 Blood pressure diastolic 00 mm Hg 024 Height 5 ft 6 in in 07/07/2023 Temperature 98.4 degrees Fahrenheit 07/07/19 24 Weight 151 lbs 07/07/2023 Encounters Encounter Location Date Provider Diagnosis [facility] [address] [place] [address] 07/07/2023 Wes Taylor Diverticulitis of la rge [...]
--- OUTSIDE RECORDS SUMMARY | 2024-06-13 14:08 | XMS_ITS ---
Author Organization [facility] Address [address] [place] [phone] Care Team Providers Care Civil Engineering Professional Name Role Phone JAMI ESPINO Primary Care Provider Wes Llamas [phone] PROBLEMS Problem Type ICD Code Onset Dates Problem Status W/U Status Risk SNOMED Code Notes Problem Diarrhea of presumed infectious origin (R19.7) Active confirmed Diarrhea of presumed infectious origin (12152524) Encounters Encounter Location Date Provider Diagnosis [facility] [address] [place] [phone] 07/14/2023 Wes Taylor Diarrhea of presumed infectious origin R19.7 ASSESSMENTS Encounter Date Diagnosis Assessment Notes Treatment Notes Treatment Clinical Notes 07/14/2023 Diarrhea of presumed infectious origin (ICD-10 - R19.7) PLAN OF TREATMENT Pending Test Test Name Order Date STOOL WBC 07/14/2023 C DIFFICILE RFLX PCR 07/14/2023 GI PANEL 07/14/2023
--- OUTSIDE RECORDS SUMMARY | 2024-06-13 14:08 | XMS_ITS ---
Author Organization [facility] Address [address] [place] [address] Care Team Providers Care Time Piece Repairer Name Role Phone JAMI ESPINO Primary Care Provider Wes Llamas Unavailable [phone] REASON FOR VISIT screening PROBLEMS Problem Type ICD Code Onset Dates Problem Status W/U Status Risk SNOMED Code Notes Problem Diverticulosis of large intestine without perforation or abscess without bleeding (K57.30) Active confirmed Diverticul ar disease of colon (633627907) Encounters Encounter Location Date Provider Diagnosis [facility] [place] [address] [place] [phone] 10/03/2023 Wes Taylor Encounter for scre ening [...]
[2024-06-13] MEDS: Piperacillin Sodium/Tazobactam 3.375 GM in 0.9 % Sodium Chloride 50 ML IV (14:30)
[2024-06-13] MEDS: Lactated Ringers 1,000 ML 999 ML IV (14:30)
[2024-06-13 14:31] VITALS: RESP 18
[2024-06-13] MEDS: ondansetron HCL 4 MG/2 ML VIAL IVPUSH (14:31)
[2024-06-13] MEDS: Morphine Sulfate 4 MG/ML CARTRIDGE IVPUSH (14:31)
[2024-06-13] MEDS: Nicotine 21 MG PATCH.TD24 TRANSDERMA (15:38)
[2024-06-13 15:44] VITALS: BP 155/73; PULSE 58; RESP 18; TEMP 36.7; O2SAT 98
[2024-06-13 16:05] LABS: Appearance Urine Clear; Color Urine Yellow; Glucose Urine UA Negative (Negative); Leukocyte Esterase Urine Negative (Negative); Nitrite Urine Negative (Negative); Specific Gravity - Urine >= 1.030 (1.005-1.025); Urine Blood Negative (Negative); Urine Ketones 15 mg/dL (Negative); Urine Protein Trace mg/dL (Neg-Trace)
[2024-06-13 16:10] LABS: Bacteria Urine Trace (None Seen); Hyaline Casts Urine 0-2 /LPF (0-2); RBC Urine 0-2 /HPF (0-2); Squamous Epithelial Cell Urine 0-2 /HPF (0-2); WBC Urine 0-5 /HPF (0-5)
[2024-06-13] MEDS: iohexoL 350 MG/ML 100 ML INFUS..BTL 85 ML IV (16:18)
[2024-06-13 17:44] VITALS: BP 155/73; PULSE 58; RESP 18; TEMP 36.7; O2SAT 98
== END 2024-06-13 17:45 | disposition home or self-care (01) ==
PROVIDERS: Physician Assistant; Emergency Provider Emergency Medicine; PCP Internal Medicine
DX: K52.9 Noninfective gastroenteritis and colitis, unspecified (principal); F17.210 Nicotine dependence, cigarettes, uncomplicated; Z03.818 Encounter for observation for suspected exposure to other biological agents ruled out
CPT/HCPCS: 0241U; 74177; 80053; 81001; 83605; 83690; 83735; 85025; 85610; 86850; 86900; 86901; 87040; 96361; 96365; 96375; 99284; J2270; J2405; J2543; J7120; Q9967

== ENCOUNTER → 2024-06-13 11:14 | Outpatient (BNV) | payer OTHER, SELFPAY | PROVIDERS: Emergency Provider Emergency Medicine; PCP Internal Medicine; Visit Provider Radiology Diagnostic Radiology | DX: R10.30 Lower abdominal pain, unspecified (principal); K57.90 Diverticulosis of intestine, part unspecified, without perforation or abscess without bleeding; Z87.19 Personal history of other diseases of the digestive system | CPT/HCPCS: 74177 ==

== ENCOUNTER 2024-06-15 16:14 | Emergency (ER) | payer OTHER, SELFPAY ==
--- NOTE | ~2024-06-15 | CT_ITS ---
CLINICAL HISTORY: trauma CT head without contrast Comparison: Head CT from 09/24/2013 Findings: No acute intracranial hemorrhage. No midline shift or hydrocephalus. Posterior fossa arachnoid cyst is unchanged again measuring 1.5 cm. Mucosal thickening of the paranasal sinuses including maxillary sinuses. Imaged mastoid air cells are well aerated. No acute skull fracture. IMPRESSION: No acute intracranial abnormality by CT and no significant change compared to 2013 This document has been electronically signed by: Tan Gann MD on 06/15/2024 20:07:17
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
[2024-06-15 16:20] VITALS: BP 126/69; BP 150/90; PULSE 66; PULSE 72; RESP 18; TEMP 36.6; O2SAT 98; O2SAT 99; BMI 22.1
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
--- OUTSIDE RECORDS SUMMARY | 2024-06-15 17:01 | XMS_ITS ---
Author Organization [facility] Address [address] [place] [address] Care Team Providers Care Orthopedic Shoe Maker Name Role Phone JAMI ESPINO Primary Care Provider Wes Llamas Unavailable [phone] REASON FOR VISIT screening PROBLEMS Problem Type ICD Code Onset Dates Problem Status W/U Status Risk SNOMED Code Notes Problem Diverticulosis of large intestine without perforation or abscess without bleeding (K57.30) Active confirmed Diverticul ar disease of colon (243459318) Encounters Encounter Location Date Provider Diagnosis [facility] [place] Outpatient [address] [place] [phone] 10/03/2023 Wes Taylor Encounter for scre ening [...]
--- OUTSIDE RECORDS SUMMARY | 2024-06-15 17:01 | XMS_ITS ---
Author Organization [facility] Address [address] [place] [phone] Care Team Providers Care Sample Finisher Name Role Phone JAMI ESPINO Primary Care Provider Wes Llamas [phone] PROBLEMS Problem Type ICD Code Onset Dates Problem Status W/U Status Risk SNOMED Code Notes Problem Diarrhea of presumed infectious origin (R19.7) Active confirmed Diarrhea of presumed infectious origin (46600047) Encounters Encounter Location Date Provider Diagnosis [facility] [address] [place] [phone] 07/14/2023 Wes Taylor Diarrhea of presumed infectious origin R19.7 ASSESSMENTS Encounter Date Diagnosis Assessment Notes Treatment Notes Treatment Clinical Notes 07/14/2023 Diarrhea of presumed infectious origin (ICD-10 - R19.7) PLAN OF TREATMENT Pending Test Test Name Order Date STOOL WBC 07/14/2023 C DIFFICILE RFLX PCR 07/14/2023 GI PANEL 07/14/2023
--- OUTSIDE RECORDS SUMMARY | 2024-06-15 17:01 | XMS_ITS | Patient Health Record ---
Author Organization [facility] Address [address] [place] [address] Care Team Providers Care Follow Up Clerk Name Role Phone JAMI ESPINO Primary Care Provider Wes Llamas [phone] ALLERGIES Allergen (clinical drug ingredient) Drug/Non Drug Allergy documented on EMR Reaction Allergy Type Onset Date Status Penicillin Unknown Drug Allergy Active codeine Codeine hives/swollen in throat Drug Allergy Active RESULTS Component Value Reference Range Notes Pathology (Not yet reviewed by provider) Interpretation: Performing Lab:[facility], [address] [place] [phone] Notes/Report: REASON FOR REFERRAL No Information SOCIAL [...] Active confirmed Perforated diverticulum of large intestine (096853211) Problem Colon cancer screening (Z12.11) Active confirmed Colon can cer screening (799379040) Problem Diarrhea of presumed infectious origin (R19.7) Active confirmed Diarrhea of presumed infectious origin (23305820) Problem Diverticulosis of large intestine without perforation or abscess without bleeding (K57.30) Active confirmed Diverticul ar disease of colon (049919134) VITAL SIGNS Temperature 98.4 degrees Fahrenheit 07/07/2023 Blood pressure diastolic 00 mm Hg 07/07/2023 Height 5 ft 6 in in 07/07/2023 Blood pressure systolic 00 mm Hg 07/07/2023 Weight 151 lbs 07/07/2023 BMI 24.37 kg/m2 07/07/2023 Encounters Encounter Location Date Provider Diagnosis [facility] [place] Outpatient [address] [place] [phone] 10/03/2023 Wes Taylor Encounter for screen ing colonoscopy Z12.11 ; Rectal polyp K62.1 ; Diverticulosis of large intestine without perforation or abscess without bleeding K57.30 and Other hemorrhoids K64.8 [facility] [address] [place] [phone] 07/07/2023 Wes Taylor Diverticulitis of la rge intestine with abscess without bleeding K57.20 and Colon cancer screening Z12.11 [facility] [address] [facility] [address] [place] [phone] 07/14/2023 Wes Taylor Diarrhea of presumed infectious [...] Insured Coverage Start Date Coverage End Date [facility] [address] [address] [place], [place] [id number] FERMIN CHAPA Self - patient is the insured MEDICAL (GENERAL) HISTORY Medical History History ICD Code Kidney stones Negative colonoscopy in 2009 with me Denies NE,DM,CVA,Lung disease,renal dise ase Sigmoid diverticulitis in [facility] 2023 with associated complication of [...]
[2024-06-15] MEDS: Acetaminophen 325 MG TABLET 975 MG PO (17:30)
[2024-06-15] MEDS: Nicotine 21 MG PATCH.TD24 TRANSDERMA (18:03)
[2024-06-15 19:31] VITALS: RESP 20
[2024-06-15] MEDS: Morphine Sulfate 10 MG/ML CARTRIDGE 6 MG IM (19:31)
[2024-06-15 20:07] VITALS: BP 114/72; PULSE 58; RESP 18; TEMP 36.7; O2SAT 98
[2024-06-15] MEDS: Cyclobenzaprine HCl 10 MG TABLET PO (20:17)
[2024-06-15 20:19] VITALS: BP 114/72; PULSE 58; RESP 18; TEMP 36.7; O2SAT 98
[2024-06-15 20:24] VITALS: RESP 16
== END 2024-06-15 20:28 | disposition home or self-care (01) ==
PROVIDERS: Emergency Provider Internal Medicine; PCP Internal Medicine
DX: S16.1XXA Strain of muscle, fascia and tendon at neck level, initial encounter (principal); M54.2 Cervicalgia; R51.9 Headache, unspecified; V43.62XA Car passenger injured in collision with other type car in traffic accident, initial encounter; Y93.9 Activity, unspecified; Y92.488 Other paved roadways as the place of occurrence of the external cause; Y99.8 Other external cause status
CPT/HCPCS: 70450; 72125; 96372; 99284; J2270

== ENCOUNTER → 2024-06-15 16:54 | Outpatient (BNV) | payer OTHER, SELFPAY | PROVIDERS: Emergency Provider Internal Medicine; PCP Internal Medicine; Visit Provider Radiology Neuroradiology | DX: M54.2 Cervicalgia (principal); Z04.3 Encounter for examination and observation following other accident | CPT/HCPCS: 70450; 72125 ==

== ENCOUNTER 2024-06-18 08:41 | Outpatient (AMB) | payer OTHER, SELFPAY ==
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
[2024-06-18 08:54] VITALS: BMI 23.0
--- OUTSIDE RECORDS SUMMARY | 2024-06-18 09:12 | XMS_ITS ---
Author Organization [facility] Address [address] [place] [address] Care Team Providers Care Textile Artist Name Role Phone JAMI ESPINO Primary Care Provider Wes Llamas [phone] ALLERGIES Allergen (clinical drug ingredient) Drug/Non Drug [...] Active confirmed Perforated diverticulum of large intestine (685629131) Problem Colon cancer screening (Z12.11) Active confirmed Colon can cer screening (669836677) VITAL SIGNS Temperature 98.4 degrees Fahrenheit 03/14/20 24 Blood pressure systolic 00 mm Hg 07/07/19 24 Blood pressure diastolic 00 mm Hg 024 Height 5 ft 6 in in 07/07/2023 Weight 151 lbs 07/07/2023 BMI 24.37 kg/m2 07/07/2023 Encounters Encounter Location Date Provider Diagnosis [facility] [address] [place] [address] 07/07/2023 Wes Taylor Diverticulitis of la rge [...]
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
--- OUTSIDE RECORDS SUMMARY | 2024-06-18 09:13 | XMS_ITS ---
Author Organization [facility] Address [address] [place] [phone] Care Team Providers Care Cath Lab Technologist Name Role Phone JAMI ESPINO Primary Care Provider Wes Llamas [phone] PROBLEMS Problem Type ICD Code Onset Dates Problem Status W/U Status Risk SNOMED Code Notes Problem Diarrhea of presumed infectious origin (R19.7) Active confirmed Diarrhea of presumed infectious origin (38084358) Encounters Encounter Location Date Provider Diagnosis [facility] [address] [place] [phone] 07/14/2023 Wes Taylor Diarrhea of presumed infectious origin R19.7 ASSESSMENTS Encounter Date Diagnosis Assessment Notes Treatment Notes Treatment Clinical Notes 07/14/2023 Diarrhea of presumed infectious origin (ICD-10 - R19.7) PLAN OF TREATMENT Pending Test Test Name Order Date STOOL WBC 07/14/2023 C DIFFICILE RFLX PCR 07/14/2023 GI PANEL 07/14/2023
--- OUTSIDE RECORDS SUMMARY | 2024-06-18 09:13 | XMS_ITS ---
Author Organization [facility] Address [address] [place] [address] Care Team Providers Care Manufacturing Engineer Name Role Phone JAMI ESPINO Primary Care Provider Wes Llamas Unavailable [phone] REASON FOR VISIT screening PROBLEMS Problem Type ICD Code Onset Dates Problem Status W/U Status Risk SNOMED Code Notes Problem Diverticulosis of large intestine without perforation or abscess without bleeding (K57.30) Active confirmed Diverticul ar disease of colon (837946104) Encounters Encounter Location Date Provider Diagnosis [facility] Outpatient [address] [place] [id number] 10/03/2023 Wes Taylor Encounter for scre ening [...]
== END 2024-06-18 09:04 | disposition home or self-care (01) ==
PROVIDERS: PCP Internal Medicine; Visit Provider Surgery
DX: K40.90 Unilateral inguinal hernia, without obstruction or gangrene, not specified as recurrent (principal); K52.9 Noninfective gastroenteritis and colitis, unspecified
CPT/HCPCS: 99213

== ENCOUNTER → 2024-06-18 08:41 | Outpatient (BNVA) | payer OTHER, SELFPAY | PROVIDERS: PCP Internal Medicine; Visit Provider Surgery | DX: K40.90 Unilateral inguinal hernia, without obstruction or gangrene, not specified as recurrent (principal); K52.9 Noninfective gastroenteritis and colitis, unspecified | CPT/HCPCS: 99212 ==

== ENCOUNTER 2024-07-20 10:43 | Day surgery (SDC) | payer OTHER, SELFPAY ==
--- OUTSIDE RECORDS SUMMARY | 2024-06-21 14:10 | XMS_ITS ---
Author Organization [facility] Address [address] [place] [address] Care Team Providers Care Tour Counselor Name Role Phone JAMI ESPINO Primary Care Provider Wes Llamas [phone] ALLERGIES Allergen (clinical drug ingredient) Drug/Non Drug [...] Active confirmed Perforated diverticulum of large intestine (839131904) Problem Colon cancer screening (Z12.11) Active confirmed Colon can cer screening (645906778) VITAL SIGNS Temperature 98.4 degrees Fahrenheit 03/14/20 24 Blood pressure systolic 00 mm Hg 07/07/19 24 Blood pressure diastolic 00 mm Hg 024 Height 5 ft 6 in in 07/07/2023 Weight 151 lbs 07/07/2023 BMI 24.37 kg/m2 07/07/2023 Encounters Encounter Location Date Provider Diagnosis [facility] [address] [place] [address] 07/07/2023 Wes Taylor Diverticulitis of la rge [...]
--- OUTSIDE RECORDS SUMMARY | 2024-06-21 14:10 | XMS_ITS ---
Author Organization [facility] Address [address] [place] [address] Care Team Providers Care Sales Account Manager Name Role Phone JAMI ESPINO Primary Care Provider Wes Llamas Unavailable [phone] REASON FOR VISIT screening PROBLEMS Problem Type ICD Code Onset Dates Problem Status W/U Status Risk SNOMED Code Notes Problem Diverticulosis of large intestine without perforation or abscess without bleeding (K57.30) Active confirmed Diverticul ar disease of colon (402085458) Encounters Encounter Location Date Provider Diagnosis [facility] Outpatient [address] [place] [id number] 10/03/2023 Wes Taylor Encounter for scre ening [...]
--- OUTSIDE RECORDS SUMMARY | 2024-06-21 14:11 | XMS_ITS | Patient Health Record ---
Author Organization [facility] Address [address] [place] [address] Care Team Providers Care Buffing Machine Tender Name Role Phone JAMI ESPINO Primary Care Provider Wes Llamas [phone] ALLERGIES Allergen (clinical drug ingredient) Drug/Non Drug Allergy documented on EMR Reaction Allergy Type Onset Date Status Penicillin Unknown Drug Allergy Active codeine Codeine hives/swollen in throat Drug Allergy Active RESULTS Component Value Reference Range Notes Pathology (Not yet reviewed by provider) Interpretation: Performing Lab:[facility], [address] [place] [phone] Notes/Report: REASON FOR REFERRAL No Information SOCIAL [...] (Z12.11) Active confirmed Colon can cer screening (943032527) Problem Diverticulosis of large intestine without perforation or abscess without bleeding (K57.30) Active confirmed Diverticul ar disease of colon (567444936) Problem Diverticulitis of large intestine with abscess without bleeding (K57.20) Active confirmed Perforated diverticulum of large intestine (648218312) Problem Diarrhea of presumed infectious origin (R19.7) Active confirmed Diarrhea of presumed infectious origin (46479861) VITAL SIGNS Temperature 98.4 degrees Fahrenheit 07/07/2023 Blood pressure diastolic 00 mm Hg 07/07/2023 Height 5 ft 6 in in 07/07/2023 Blood pressure systolic 00 mm Hg 07/07/2023 Weight 151 lbs 07/07/2023 BMI 24.37 kg/m2 07/07/2023 Encounters Encounter Location Date Provider Diagnosis [facility] Outpatient [address] [place] [id number] 10/03/2023 Wes Taylor Encounter for screen ing colonoscopy Z12.11 ; Rectal polyp K62.1 ; Diverticulosis of large intestine without perforation or abscess without bleeding K57.30 and Other hemorrhoids K64.8 [facility] [address] [place] [phone] 07/07/2023 Wes Taylor Diverticulitis of la rge intestine with abscess without bleeding K57.20 and Colon cancer screening Z12.11 [facility] [address] [facility] [address] [place] [phone] 07/14/2023 Wes Taylor Diarrhea of presumed infectious [...] Insured Coverage Start Date Coverage End Date [facility] [address] [address] [place], [place] [id number] FERMIN CHAPA Self - patient is the insured MEDICAL (GENERAL) HISTORY Medical History History ICD Code Kidney stones Negative colonoscopy in 2009 with me Denies NM,DM,CVA,Lung disease,renal dise ase Sigmoid diverticulitis in [facility] 2023 with associated complication of an [...]
--- OUTSIDE RECORDS SUMMARY | 2024-06-21 14:11 | XMS_ITS ---
Author Organization [facility] Address [address] [place] [phone] Care Team Providers Care Psychiatric Aides Teacher Name Role Phone JAMI ESPINO Primary Care Provider Wes Llamas [phone] PROBLEMS Problem Type ICD Code Onset Dates Problem Status W/U Status Risk SNOMED Code Notes Problem Diarrhea of presumed infectious origin (R19.7) Active confirmed Diarrhea of presumed infectious origin (30702791) Encounters Encounter Location Date Provider Diagnosis [facility] [address] [place] [phone] 07/14/2023 Wes Taylor Diarrhea of presumed infectious origin R19.7 ASSESSMENTS Encounter Date Diagnosis Assessment Notes Treatment Notes Treatment Clinical Notes 07/14/2023 Diarrhea of presumed infectious origin (ICD-10 - R19.7) PLAN OF TREATMENT Pending Test Test Name Order Date STOOL WBC 07/14/2023 C DIFFICILE RFLX PCR 07/14/2023 GI PANEL 07/14/2023
[2024-07-18 11:10] VITALS: BMI 24.5
[2024-07-20 12:35] VITALS: BP 135/72; PULSE 58; RESP 16; TEMP 37.1; O2SAT 98; BMI 22.1
[2024-07-20] MEDS: Lactated Ringers 1,000 ML 100 ML IVCONT (13:01)
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
--- NOTE | 2024-07-20 13:41 | MHC.SHP ---
Pre-Procedural Eval Section A - 24 Hr Update-Section A only Date of Service: 07/20/24 Section B - Complete if H&P > 30 days Chief Complaint: Unilateral inguinal hernia, without obstruction or Details of Present Illness: Has a recurrent left inguinal hernia Relevant Social History: None Present Medications: see Short Stay Collaborative assessment Medical History: Significant History Allergies: Allergies Allergy/AdvReac Type Severity Reaction Status Date / Time No Known Allergies Allergy Verified 07/20/24 12:32 Review of Systems Sugical H&P ROS: Negative: Constitution, Cardiovascular and Respiratory Exam Surgical H&P Exam: Normal: Heart, Normal: Lungs and Normal: Abdomen Plan Diagnosis/Plan: Unchanged I have reviewed the history and physical and performed a pertinent physical examination on my patient. No changes have occurred unless specified. Time Spent With Patient Time: Total time managing care of this patient today ____ minutes.
[2024-07-20] MEDS: ceFAZolin Sodium/Dextrose,Iso 2 GM/50 ML PIGGYBACK IV (14:15)
--- NOTE | 2024-07-20 14:44 | P.OP_ITS ---
Operative Note Operative Note Date of Service: 07/20/24 Narrative: Preop diagnosis: Left inguinal hernia, reducible Postop diagnosis: Left inguinal hernia, reducible, direct Procedure: Repair of a left inguinal hernia with mesh Surgeon: Victoriano Sherman MD engineer second assistant: LUCIA Naylor The patient is a 58-year-old male with a reducible mass in the left groin consistent with a left inguinal hernia. He understood the technique of the planned procedure. He was aware of the risks, benefits, and alternatives He was brought to the operating room. He was placed supine under general anesthesia via laryngeal mask airway. The left groin was prepped and draped in the usual sterile fashion. A surgical time-out was done. The patient received cefazolin 2 g IV preoperatively I infiltrated the planned line of incision with lidocaine 1%. I made a short incision in the skin along an imaginary line from the anterior superior iliac spine to the pubic ramus with a blade 15. This was carried down through the full-thickness of the skin and subcutaneous fat down to the fascia. The external oblique aponeurosis was identified and visualized. The external ring was seen. I made an a short incision on the external oblique aponeurosis overlying the canal. This was made using blade 15. And extended this inferomedially to connect with the external ring with a an open tip pair of scissors I applied hemostasis on the divided edges of the aponeurosis. I did blunt di ssection of the under side of the external oblique aponeurosis to create a pocket for the mesh. I then proceeded to gently dissect the spermatic cord and its contents with my index finger until was able to pass a Yosef drain around this. The Yosef drain was used for retraction I was able to identify the vas deferens and the accompanying vessels. There was were protected during the dissection the hernia was seen and this was fat containing. This was actually in the floor of the canal consistent with a direct hernia I reinforced the hernia defect in the floor of the canal with a small-sized Prolene plug. The plug was secured to the shelving edge of the inguinal meant laterally and the internal oblique superiorly and medially with the inner leaves of the plug using a Prolene 2-0 stitch I then reinforced the entire floor of the canal with a keyhole mesh. The tails of the mesh were passed around the cord at the level of the internal ring and were flattened on the floor. The mesh was secured to the ramus inferomedially, the internal oblique superiorly and medially as well as the shelving edge of the inguinal meant laterally I then removed the Cranford drain I irrigated I closed the external oblique aponeurosis with a running Polysorb 2-0 stitch to re-create the external ring The subcutaneous layer was reapposed with Polysorb 3-0 simple interrupted sutures. Skin closure was achieved with Polysorb 4-0 subcuticular running sutures The area was infiltrated with Marcaine 0.5% for postop analgesia. Dressings were applied. The procedure was completed. The patient tolerated the procedure well. There were no immediate complications. Initial and final counts of sponges and instruments were correct. Estimated blood loss was about 20 cc The patient was extubated without difficulty and transferred to the recovery room with stable vital signs
[2024-07-20 15:00] VITALS: BP 157/83; PULSE 57; RESP 12; TEMP 36.1; O2SAT 97
[2024-07-20 15:05] VITALS: BP 163/94; PULSE 65; RESP 16; O2SAT 97
[2024-07-20 15:10] VITALS: BP 174/79; PULSE 62; RESP 16; O2SAT 100
== END 2024-07-20 15:40 | disposition home or self-care (01) ==
PROVIDERS: PCP Internal Medicine; Visit Provider Surgery
PROC: (CPT 49505; principal; 2024-07-20 13:50)
DX: K40.91 Unilateral inguinal hernia, without obstruction or gangrene, recurrent (principal); K52.9 Noninfective gastroenteritis and colitis, unspecified; K21.9 Gastro-esophageal reflux disease without esophagitis; Z87.19 Personal history of other diseases of the digestive system; N20.0 Calculus of kidney; G93.0 Cerebral cysts; Z87.442 Personal history of urinary calculi; Z79.899 Other long term (current) drug therapy; Z90.49 Acquired absence of other specified parts of digestive tract; Z98.890 Other specified postprocedural states; Z87.828 Personal history of other (healed) physical injury and trauma; F17.210 Nicotine dependence, cigarettes, uncomplicated; Z56.0 Unemployment, unspecified
CPT/HCPCS: 49505; C1781; J0690; J1100; J2003; J2250; J2405; J2704; J2795; J3010

== ENCOUNTER → 2024-07-20 10:43 | Outpatient (BNV) | payer OTHER, SELFPAY | PROVIDERS: PCP Internal Medicine; Visit Provider Surgery | DX: K40.20 Bilateral inguinal hernia, without obstruction or gangrene, not specified as recurrent (principal) | CPT/HCPCS: 49505 ==

== ENCOUNTER 2024-08-08 10:18 | Outpatient (AMB) | payer OTHER, SELFPAY ==
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
[2024-08-08 10:23] VITALS: BP 143/85; PULSE 76; BMI 23.5
--- OUTSIDE RECORDS SUMMARY | 2024-08-08 11:57 | XMS_ITS ---
Author Organization [facility] Address [address] [place] [phone] Care Team Providers Care Transformer Assembler Name Role Phone JAMI ESPINO Primary Care Provider Wes Llamas [phone] REASON FOR VISIT screening Problems Problem Type SNOMED Code ICD Code Onset Dates Problem Status W/U Status Risk Notes Problem Diverticular disease of colon (594554379) Diverticulosis of large intestine without perforation or abscess without bleeding (K57.30) Active confirmed Encounters Encounter Location Date Provider Diagnosis [facility] Out[facility] [address] [place] [phone] 10/03/2023 Wes Taylor Encounter for scre ening [...] Progress Notes * FERMIN CHAPA RDOB: 7 (58 yo M)Acc No.[id number]:10/03/2023 COLON WITH MAC Patient:?FERMIN CHAPA Provider:?Wes Taylor MD :1965???Age:57 Y???Sex:Male Blayne e:10/03/2023 Address:[address] [place] [address] , [id number] Pcp:JAMI ESPINO Subjective: * Chief Complaints: * ???1. Screening. * Medical History:? Objective: * Vitals:? Assessment: * Assessment: 1.?Encounter for screening c olonoscopy - Z12.11 (Primary)???2.?Rectal polyp - K62.1???3.?Diverticulosis of large intestine without perforation or abscess without bleeding - K57.30???4.?Other hemorrhoids - K64.8??? Plan: * Treatment: * Procedure Codes:?64332 COLON OSCOPY AND BIOPSY, Modifiers: 33 * * The named appointment provid er may or may not be the originator of this progress note, and it is not deemed complete until electronically signed by the appointment provider. Sign off status: Pending * Provider:?Wes Taylor MD Date:? 024 Generated for Santa arnold/Mickey/eTransmitting on:?08/08/2024 11:57 AM EDT
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
--- OUTSIDE RECORDS SUMMARY | 2024-08-08 11:57 | XMS_ITS ---
Author Organization [facility] Address [address] [place] [phone] Care Team Providers Care Machine Engraver Name Role Phone KENZIE JAMI Primary Care Provider Wes Llamas [phone] Problems Problem Type SNOMED Code ICD Code Onset Dates Problem Status W/U Status Risk Notes Problem Diarrhea of presumed infectious origin (03011942) Diarrhea of presumed infectious origin (R19.7) Active confirmed Encounters Encounter Location Date Provider Diagnosis [facility] [address] [place] [phone] 07/14/2023 Wes Taylor Diarrhea of presumed infectious origin R19.7 Assessments Encounter Date Diagnosis (ICD Code) Assessment Notes Treatment Notes Treatment Clinical Notes Section Notes 07/14/2023 Diarrhea of presumed infectious origin (ICD-10 - R19.7) Plan Of Treatment Pending Test Test Name Order Date STOOL WBC 07/14/2023 C DIFFICILE RFLX PCR 07/14/2023 GI PANEL 07/14/2023 Progress Notes * FERMIN CHAPA RDOB: [birth year] (57 yo M)Acc No.[id number]:07/14/2023 Patient:?FERMIN CHAPA :1965???Age:57 Y???Sex:Male Address:[address] [place] [address] , [place] [address] Subjective: * Chief Complaints: * ??? * Medical History:? * Surgical History:? * Hospitalization/Major Diagno stic Procedure:? * Medications:? Objective: Assessment: * Assessment: 1.?Diarrhea of presumed infe ctious origin - R19.7 (Primary)? Plan: * Treatment: * Procedure Codes:? * true * Date:? Generated for Santa arnold/Mickey/Gricel on:?08/08/2024 11:57 AM EDT
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
== END 2024-08-08 10:30 | disposition home or self-care (01) ==
PROVIDERS: PCP Internal Medicine; Visit Provider Surgery
DX: K40.90 Unilateral inguinal hernia, without obstruction or gangrene, not specified as recurrent (principal)
CPT/HCPCS: 99024

== ENCOUNTER → 2024-08-08 10:18 | Outpatient (BNVA) | payer OTHER, SELFPAY | PROVIDERS: PCP Internal Medicine; Visit Provider Surgery | DX: Z48.815 Encounter for surgical aftercare following surgery on the digestive system (principal); Z98.890 Other specified postprocedural states | CPT/HCPCS: 99212 ==

== ENCOUNTER 2024-08-09 14:46 | Outpatient (AMB) | payer OTHER, SELFPAY ==
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
[2024-08-09 15:23] VITALS: BP 120/60; PULSE 80; TEMP 36.5; O2SAT 97; BMI 23.2
--- OUTSIDE RECORDS SUMMARY | 2024-08-09 17:38 | XMS_ITS ---
Author Organization [facility] Address [address] [place] [address] Care Team Providers Care Hop Trainer Name Role Phone JAMI ESPINO Primary Care Provider Wes Llamas Unavailable [phone] Allergies Allergen (clinical drug ingredient) Drug/Non Drug [...] Notes Problem Perforated diverticulum of large intestine (735032821) Diverticulitis of large intestine with abscess without bleeding (K57.20) Active confirmed Problem Colon cancer screening (437838810) Colon cancer screening (Z12.11) Active confirmed Vital Signs Temperature 98.4 degrees Fahrenheit 07/07/19 24 Blood pressure systolic 00 mm Hg 07/07/19 24 Blood pressure diastolic 00 mm Hg 024 Height 5 ft 6 in in 07/07/2023 Weight 151 lbs 07/07/2023 BMI 24.37 kg/m2 07/07/2023 Encounters Encounter Location Date Provider Diagnosis [facility] [address] [place] [address] 07/07/2023 Wes Brandon Diverticulitis of la rge [...] Colon cancer screening (ICD-10 - Z12.11) Overall, Lucio presently appears well. Based on [...] LUCIO CHAPA RDOB: 7 (57 yo M)Acc No.[id number]:07/07/2023 Progress Notes Patient:?LUCIO CHAPA Provider:?Wes Taylor MD :1965???Age:57 Y???Sex:Male Blayne e:07/07/2023 Address:[address] [place] [address] , [id number] Pcp:JAMI ESPINO Subjective: * Chief Complaints: * [...] past year??Never (0 point),?Points?5,?Interpretation?Positive.?Miscellaneous:?Marital status: . Occupation: [employer]. ???Smoker 1/2 ppd, 1 drink per day. [...] Procedure Codes:?3017F COLOR ECTAL CA SCREEN DOC [id number] Pt scrn tbco and id as hradV1250 BP SCR NOT PRFRM REC REASON NOS * Follow Up:?prn * * Sign off status: Completed true * Provider:?Wes Taylor MD Date:? 024 Generated for Santa arnold/Mickey/Grazynaitting on:?08/09/2024 05:38 PM EDT History and Physical Notes * HPI [...]
--- OUTSIDE RECORDS SUMMARY | 2024-08-09 17:38 | XMS_ITS ---
Author Organization [facility] Address [address] [place] [address] Care Team Providers Care Cotton Chopper Name Role Phone JAMI ESPINO Primary Care Provider Wes Llamas [phone] REASON FOR VISIT screening Problems Problem Type SNOMED Code ICD Code Onset Dates Problem Status W/U Status Risk Notes Problem Diverticular disease of colon (594480496) Diverticulosis of large intestine without perforation or abscess without bleeding (K57.30) Active confirmed Encounters Encounter Location Date Provider Diagnosis [facility] Outpatient [address] [place] [phone] 10/03/2023 Wes Taylor Encounter for scre ening [...] FERMIN CHAPA RDOB: 7 (58 yo M)Acc No.[id number]:10/03/2023 COLON WITH MAC Patient:?FERMIN CHAPA Provider:?Wes Taylor MD :1965???Age:57 Y???Sex:Male Blayne e:10/03/2023 Address:[address] [place] [address] , [id number] Pcp:JAMI ESPINO Subjective: * Chief Complaints: * ???1. Screening. * Medical History:? Objective: * Vitals:? Assessment: * Assessment: 1.?Encounter for screening c olonoscopy - Z12.11 (Primary)???2.?Rectal polyp - K62.1???3.?Diverticulosis of large intestine without perforation or abscess without bleeding - K57.30???4.?Other hemorrhoids - K64.8??? Plan: * Treatment: * Procedure Codes:?76989 COLON OSCOPY AND BIOPSY, Modifiers: 33 * * The named appointment provid er may or may not be the originator of this progress note, and it is not deemed complete until electronically signed by the appointment provider. Sign off status: Pending * Provider:?Wes Taylor MD Date:? 024 Generated for Santa arnold/Mcikey/eTransmitting on:?08/09/2024 05:38 PM EDT
--- OUTSIDE RECORDS SUMMARY | 2024-08-09 17:39 | XMS_ITS | Patient Health Record ---
Author Organization [facility] Address [address] [place] [address] Care Team Providers Care Manager Web Application Name Role Phone LORENZO ESPINO Primary Care Provider Wes Llamas Unavailable [phone] Allergies Allergen (clinical drug ingredient) Drug/Non Drug Allergy documented on EMR Reaction Allergy Type Onset Date Status Penicillin Unknown Drug Allergy Active codeine Codeine hives/swollen in throat Drug Allergy Active Results Component Value Reference Range Notes Pathology (Not yet reviewed by provider) Interpretation: Performing Lab:[facility], [address] [place] [phone] Notes/Report: Name: Lucio Chapa ge/Sex: 57/M : 1965 Unit#: [id number] Attend Dr: Wes Taylor Re10/03/23 Status : [facility] Location: [facility] Disch: SPEC : [id number] RECD : 10/03/23 STATUS: GRANT MARTIN NUM: [id number] COLE: 10/03/23-[address] [facility] [address]: Wes Taylor ENTERED: 10/03/23- 28 SP [...] A. CEDS Copies To: Lorenzo Espino MD [address] [place] [address] [address] [place] [address] Wes Taylor [address] [place] [address] [address] [place] [address] Signed (si gnature on file) Dwight Carrion [...] Status Risk Notes Problem Colon cancer screening (398223570) Colon cancer screening (Z12.11) Active confirmed Problem Diverticular disease of colon (414006650) Diverticulosis of large intestine without perforation or abscess without bleeding (K57.30) Active confirmed Problem Perforated diverticulum of large intestine (130059071) Diverticulitis of large intestine with abscess without bleeding (K57.20) Active confirmed Problem Diarrhea of presumed infectious origin (12271269) Diarrhea of presumed infectious origin (R19.7) Active confirmed Encounters Encounter Location Date Provider Diagnosis [facility] Outpatient [address] [place] [phone] 10/03/2023 Wes Taylor Encounter for scre ening [...] Insured Coverage Start Date Coverage End Date [facility] [address] [address] [place], [place] [id number] [phone] [id number] LUCIO CHAPA Self - patient is the insured Medical (General) History Medical History History ICD Code Kidney stones Negative colonoscopy in 2009 with me Denies [place],DM,CVA,Lung disease,renal dise ase Sigmoid diverticulitis in [facility] 2023 with associated complication of an [...]
--- OUTSIDE RECORDS SUMMARY | 2024-08-09 17:39 | XMS_ITS ---
Author Organization [facility] Address [address] [place] [address] Care Team Providers Care Lead Section Supervisor Name Role Phone KENZIE JAMI Primary Care Provider Wes Llamas [phone] Problems Problem Type SNOMED Code ICD Code Onset Dates Problem Status W/U Status Risk Notes Problem Diarrhea of presumed infectious origin (34657278) Diarrhea of presumed infectious origin (R19.7) Active confirmed Encounters Encounter Location Date Provider Diagnosis [facility] [address] [place] [phone] 07/14/2023 Wes Taylor Diarrhea of presumed infectious origin R19.7 Assessments Encounter Date Diagnosis (ICD Code) Assessment Notes Treatment Notes Treatment Clinical Notes Section Notes 07/14/2023 Diarrhea of presumed infectious origin (ICD-10 - R19.7) Plan Of Treatment Pending Test Test Name Order Date STOOL WBC 07/14/2023 C DIFFICILE RFLX PCR 07/14/2023 GI PANEL 07/14/2023 Progress Notes * FERMIN CHAPA RDOB: 7 (57 yo M)Acc No.[id number]:07/14/2023 Patient:?FERMIN CHAPA :1965???Age:57 Y???Sex:Male Address:[address] [place] [address] , [place] [address] Subjective: * Chief Complaints: * ??? * Medical History:? * Surgical History:? * Hospitalization/Major Diagno stic Procedure:? * Medications:? Objective: Assessment: * Assessment: 1.?Diarrhea of presumed infe ctious origin - R19.7 (Primary)? Plan: * Treatment: * Procedure Codes:? * true * Date:? Generated for Santa arnold/Mickey/Gricel on:?08/09/2024 05:38 PM EDT
== END 2024-08-09 16:30 | disposition home or self-care (01) ==
LOC: HO.HMCH 14:47
PROVIDERS: PCP Internal Medicine; Visit Provider Internal Medicine
DX: Z01.818 Encounter for other preprocedural examination (principal)

== ENCOUNTER → 2024-08-09 14:46 | Outpatient (BNVA) | payer OTHER, SELFPAY | PROVIDERS: PCP Internal Medicine; Visit Provider Internal Medicine | DX: Z01.818 Encounter for other preprocedural examination (principal); H26.9 Unspecified cataract | CPT/HCPCS: 99212 ==

== ENCOUNTER → 2024-08-10 09:45 | Outpatient (REF) | payer OTHER, SELFPAY ==
--- NOTE | 2024-08-10 09:50 | ECG_ITS ---
Test Reason : preop Blood Pressure : */* mmHG Vent. Rate : 70 BPM Atrial Rate : 70 BPM P-R Int : 142 ms QRS Dur : 86 ms QT Int : 404 ms P-R-T Axes : 65 71 46 degrees QTcB Int : 436 ms Normal sinus rhythm Normal ECG When compared with ECG of 27-Sep-2023 13:16, No significant change was found Referred By: Lorenzo Burns Electronically Signed By: DENY BONE MD
--- OUTSIDE RECORDS SUMMARY | 2024-08-10 10:26 | XMS_ITS ---
Author Organization [facility] Address [address] [place] [address] Care Team Providers Care Office Administration Name Role Phone KENZIE JAMI Primary Care Provider Wes Llamas [phone] Problems Problem Type SNOMED Code ICD Code Onset Dates Problem Status W/U Status Risk Notes Problem Diarrhea of presumed infectious origin (78945452) Diarrhea of presumed infectious origin (R19.7) Active confirmed Encounters Encounter Location Date Provider Diagnosis [facility] [address] [place] [phone] 07/14/2023 Wes Taylor Diarrhea of presumed infectious origin R19.7 Assessments Encounter Date Diagnosis (ICD Code) Assessment Notes Treatment Notes Treatment Clinical Notes Section Notes 07/14/2023 Diarrhea of presumed infectious origin (ICD-10 - R19.7) Plan Of Treatment Pending Test Test Name Order Date STOOL WBC 07/14/2023 C DIFFICILE RFLX PCR 07/14/2023 GI PANEL 07/14/2023 Progress Notes * FERMIN CHAPA RDOB: 7 (57 yo M)Acc No.[id number]:07/14/2023 Patient:?FERMIN CHAPA :1965???Age:57 Y???Sex:Male Address:[address] [place] [address] , [place] [address] Subjective: * Chief Complaints: * ??? * Medical History:? * Surgical History:? * Hospitalization/Major Diagno stic Procedure:? * Medications:? Objective: Assessment: * Assessment: 1.?Diarrhea of presumed infe ctious origin - R19.7 (Primary)? Plan: * Treatment: * Procedure Codes:? * true * Date:? Generated for Santa arnold/Mickey/Gricel on:?08/10/2024 10:26 AM EDT
--- OUTSIDE RECORDS SUMMARY | 2024-08-10 10:26 | XMS_ITS | Patient Health Record ---
Author Organization [facility] Address [address] [place] [address] Care Team Providers Care Cloth Handler Name Role Phone LORENZO ESPINO Primary Care Provider Wes Llamas Unavailable [phone] Allergies Allergen (clinical drug ingredient) Drug/Non Drug Allergy documented on EMR Reaction Allergy Type Onset Date Status Penicillin Unknown Drug Allergy Active codeine Codeine hives/swollen in throat Drug Allergy Active Results Component Value Reference Range Notes Pathology (Not yet reviewed by provider) Interpretation: Performing Lab:[facility], [address] [place] [id number] Notes/Report: Name: Lucio Chapa ge/Sex: 57/M : 1965 Unit#: [id number] Attend Dr: Wes Taylor Re10/03/23 Status : [facility] Location: [facility] Disch: SPEC : [id number] RECD : 10/03/23 STATUS: GRANT MARTIN NUM: [id number] COLE: 10/03/23-[address] [facility] [address]: Wes Taylor ENTERED: 10/03/23- [...] A. CEDS Copies To: Lorenzo Espino MD [address] [place] [address] [address] [place] [address] Wes Taylor [address] [place] [address] [address] [place] [address] Signed (si gnature on file) Dwight Carrion [...] Status Risk Notes Problem Colon cancer screening (024733825) Colon cancer screening (Z12.11) Active confirmed Problem Diverticular disease of colon (890217534) Diverticulosis of large intestine without perforation or abscess without bleeding (K57.30) Active confirmed Problem Perforated diverticulum of large intestine (987371323) Diverticulitis of large intestine with abscess without bleeding (K57.20) Active confirmed Problem Diarrhea of presumed infectious origin (16156509) Diarrhea of presumed infectious origin (R19.7) Active confirmed Encounters Encounter Location Date Provider Diagnosis [facility] Outpatient [address] [place] [id number] 10/03/2023 Wes Taylor Encounter for scre ening [...] Insured Coverage Start Date Coverage End Date [facility] [address] [address] [place], [place] [id number] [phone] [id number] LUCIO CHAPA Self - patient is the insured Medical (General) History Medical History History ICD Code Kidney stones Negative colonoscopy in 2009 with me Denies [place],DM,CVA,Lung disease,renal dise ase Sigmoid diverticulitis in [facility] 2023 with associated complication of an [...]
--- OUTSIDE RECORDS SUMMARY | 2024-08-10 10:26 | XMS_ITS ---
Author Organization [facility] Address [address] [place] [address] Care Team Providers Care Track Moving Machine Operator Name Role Phone JAMI ESPINO Primary Care Provider Wes Llamas Unavailable [phone] Allergies Allergen (clinical drug ingredient) Drug/Non Drug [...] Notes Problem Perforated diverticulum of large intestine (377122047) Diverticulitis of large intestine with abscess without bleeding (K57.20) Active confirmed Problem Colon cancer screening (700186796) Colon cancer screening (Z12.11) Active confirmed Vital Signs Temperature 98.4 degrees Fahrenheit 07/07/19 24 Blood pressure systolic 00 mm Hg 07/07/19 24 Blood pressure diastolic 00 mm Hg 024 Height 5 ft 6 in in 07/07/2023 Weight 151 lbs 07/07/2023 BMI 24.37 kg/m2 07/07/2023 Encounters Encounter Location Date Provider Diagnosis [facility] [address] [place] [address] 07/07/2023 Wes Brandon Diverticulitis of la rge [...] could be done on consecutive days and Lcuio will only have to do one bowel [...] LUCIO CHAPA RDOB: [birth year] (57 yo M)Acc No.[id number]:07/07/2023 Progress Notes Patient:?LUCIO CHAPA Provider:?Wes Taylor MD :1965???Age:57 Y???Sex:Male Blayne e:07/07/2023 Address:[address] [place] [address] , [id number] Pcp:JAMI ESPINO Subjective: * Chief Complaints: * [...] past year??Never (0 point),?Points?5,?Interpretation?Positive.?Miscellaneous:?Marital status: . Occupation: [employer]. ???Smoker 1/2 ppd, 1 drink per day. [...] Procedure Codes:?3017F COLOR ECTAL CA SCREEN DOC [id number] Pt scrn tbco and id as [id number] BP SCR NOT PRFRM REC REASON NOS * Follow Up:?prn * * Sign off status: Completed true * Provider:?Wes Taylor MD Date:? 024 Generated for Santa arnold/Mickey/Grazynaitting on:?08/10/2024 10:25 AM EDT History and Physical Notes * [...]
--- OUTSIDE RECORDS SUMMARY | 2024-08-10 10:26 | XMS_ITS ---
Author Organization [facility] Address [address] [place] [address] Care Team Providers Care Nail Polish Brush Machine Feeder Name Role Phone JAMI ESPINO Primary Care Provider Wes Llamas [phone] REASON FOR VISIT screening Problems Problem Type SNOMED Code ICD Code Onset Dates Problem Status W/U Status Risk Notes Problem Diverticular disease of colon (158787761) Diverticulosis of large intestine without perforation or abscess without bleeding (K57.30) Active confirmed Encounters Encounter Location Date Provider Diagnosis [facility] Outpatient [address] [place] [phone] 10/03/2023 Wes Taylor Encounter for scre ening [...] FERMIN CHAPA RDOB: 7 (58 yo M)Acc No.[id number]:10/03/2023 COLON WITH MAC Patient:?FERMIN CHAPA Provider:?Wes Taylor MD :1965???Age:57 Y???Sex:Male Blayne e:10/03/2023 Address:[address] [place] [address] , [id number] Pcp:JAMI ESPINO Subjective: * Chief Complaints: * ???1. Screening. * Medical History:? Objective: * Vitals:? Assessment: * Assessment: 1.?Encounter for screening c olonoscopy - Z12.11 (Primary)???2.?Rectal polyp - K62.1???3.?Diverticulosis of large intestine without perforation or abscess without bleeding - K57.30???4.?Other hemorrhoids - K64.8??? Plan: * Treatment: * Procedure Codes:?57789 COLON OSCOPY AND BIOPSY, Modifiers: 33 * * The named appointment provid er may or may not be the originator of this progress note, and it is not deemed complete until electronically signed by the appointment provider. Sign off status: Pending * Provider:?Wes Taylor MD Date:? 024 Generated for Santa arnold/Mickey/eTransmitting on:?08/10/2024 10:25 AM EDT
[2024-08-10 10:55] LABS: Hematocrit 38.1 % (42.0-52.0); Mean Corpuscular HGB Conc 34.1 g/dl (31.0-36.0); Mean Corpuscular Hemoglobin 29.3 pg (27.0-33.0); Mean Platelet Volume 8.7 fL (9.4-12.4); Platelet Count 316 X10*3/uL (160-400); Red Blood Count 4.43 X10*6/uL (4.60-5.80); Red Cell Distribution Width 14.6 % (11.0-16.0); White Blood Count 7.8 X10*3/uL (4.8-10.8)
[2024-08-10 11:12] LABS: Appearance Urine Clear; Color Urine Dark Yellow; Glucose Urine UA Negative (Negative); Leukocyte Esterase Urine Negative (Negative); Nitrite Urine Negative (Negative); PH 6.5 (5.0-9.0); Specific Gravity - Urine >= 1.030 (1.005-1.025); UMIC TRIGGER UA YES; Urine Blood Negative (Negative); Urine Ketones Trace mg/dL (Negative); Urine Protein 30 (1+) mg/dL (Neg-Trace)
[2024-08-10 11:24] LABS: Bacteria Urine Trace (None Seen); WBC Urine 0-5 /HPF (0-5)
[2024-08-10 11:28] LABS: Alanine Aminotransferase 20 U/L (0-40); Albumin Level 4.5 g/dL (3.5-5.0); Anion Gap 12 (12-20); Aspartate Amino Transferase 31 U/L (5-37); Bilirubin Direct 0.2 mg/dL (0.0-0.5); Bilirubin Total 0.4 mg/dL (0.0-1.0); Blood Urea Nitrogen 17 mg/dL (9-16); Calcium 9.6 mg/dL (8.4-10.2); Carbon Dioxide 25 mmol/L (22-29); Chloride 107 mmol/L (96-108); Cholesterol 173 mg/dL (<200); Estimated Glomerular Filt Rate > 60; Glucose Random 106 mg/dL (60-115); HDL Cholesterol 69 mg/dL (>40); LDL Cholesterol Calculated 89 mg/dL (<100); Potassium 4.2 mmol/L (3.3-5.1); Sodium 140 mmol/L (135-145); Total Protein 7.1 g/dL (6.5-8.0); Triglycerides 78 mg/dL (<150)
[2024-08-10 11:42] LABS: Thyroid Stimulating Hormone 0.51 uIU/mL (0.32-4.0)
[2024-08-10 19:40] LABS: Alkaline Phosphatase 98 U/L (39-117)
== END ==
LOC: HO.CARD 09:45
PROVIDERS: PCP Internal Medicine; Visit Provider Internal Medicine
DX: Z01.818 Encounter for other preprocedural examination (principal)
CPT/HCPCS: 36415; 80048; 80061; 80076; 81001; 81003; 84443; 85027; 93005

== ENCOUNTER → 2024-08-10 09:50 | Outpatient (BNV) | payer OTHER, SELFPAY | PROVIDERS: PCP Internal Medicine; Visit Provider Internal Medicine Cardiovascular Disease | DX: Z01.810 Encounter for preprocedural cardiovascular examination (principal) | CPT/HCPCS: 93010 ==

== ENCOUNTER 2025-03-07 13:29 | Outpatient (AMB) | payer OTHER, SELFPAY ==
--- OUTSIDE RECORDS SUMMARY | 2023-10-03 06:50 | XMS_ITS ---
Author Organization [facility] Address [address] [place] [id number] Care Team Providers Care Spareribs Trimmer Name Role Phone JAMI ESPINO Primary Care Provider Wes Llamas [phone] REASON FOR VISIT screening Problems Problem Type SNOMED Code ICD Code Onset Dates Problem Status W/U Status Risk Notes Problem Diverticular disease of colon (050343341) Diverticulosis of large intestine without perforation or abscess without bleeding (K57.30) Active confirmed Encounters Encounter Location Date Provider Diagnosis [facility] [place] [address] [place] [phone] 10/03/2023 Wes Taylor Encounter for scre ening colonoscopy Z12.11 ; Rectal polyp K62.1 ; Diverticulosis of large intestine without perforation or abscess without bleeding K57.30 and Other hemorrhoids K64.8 Assessments Encounter Date Diagnosis (ICD Code) Assessment Notes Treatment Notes Treatment Clinical Notes Section Notes 10/03/2023 Encounter for screening colonoscopy (ICD-10 - Z12.11) 10/03/2023 Rectal polyp (ICD-10 - K62.1) 10/03/2023 Diverticulosis of large intestine without perforation or abscess without bleeding (ICD-10 - K57.30) 10/03/2023 Other hemorrhoids (ICD-10 - K64.8) Plan Of Treatment No Information Progress Notes * FERMIN CHAPA RDOB: [birth year] (59 yo M)Acc No.[id number]:10/03/2023 COLON WITH MAC Patient: FERMIN WEBER Provider: Georgie Taylor MD :1965 A ge:57 Y S ex:Male Date:10/03/2023 Address:[address] [place] [address] [id number] Pcp:JAMI ESPINO Subjective: * Chief Complaints: * 1 . Screening. * Medical History: Objective: * Vitals: Assessment: * Assessment: 1. E ncounter for screening colonoscopy - Z12.11 (Primary) 2 . R ectal polyp - K62.1 3 . D iverticulosis of large intestine without perforation or abscess without bleeding - K57.30 4 . O ther hemorrhoids - K64.8 Plan: * Treatment: * Procedure Codes: 4 5380 COLONOSCOPY AND BIOPSY, Modifiers: 33 * * The named appointment provid er may or may not be the originator of this progress note, and it is not deemed complete until electronically signed by the appointment provider. Sign off status: Pending * Provider: Georgie Taylor MD Date: 0 10/03/2023 Generated for Santa arnold/Mickey/Grazynaitting on: 1 05/07/2024 04:49 PM EST
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
[2025-03-07 13:35] VITALS: BP 140/82; PULSE 76; TEMP 36.4; O2SAT 97; BMI 22.1
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
== END 2025-03-07 14:32 | disposition home or self-care (01) ==
LOC: HO.HMCH 13:30
PROVIDERS: PCP Internal Medicine; Visit Provider Internal Medicine
DX: Z00.00 Encounter for general adult medical examination without abnormal findings (principal); K43.9 Ventral hernia without obstruction or gangrene; B36.0 Pityriasis versicolor; Z23 Encounter for immunization

== ENCOUNTER → 2025-03-07 13:29 | Outpatient (BNVA) | payer OTHER, SELFPAY | PROVIDERS: PCP Internal Medicine; Visit Provider Internal Medicine | DX: Z00.00 Encounter for general adult medical examination without abnormal findings (principal); K43.9 Ventral hernia without obstruction or gangrene; B36.0 Pityriasis versicolor; Z23 Encounter for immunization | CPT/HCPCS: 90471; 90656; 99396 ==

== ENCOUNTER 2025-04-01 10:02 | Outpatient (AMB) | payer OTHER, SELFPAY ==
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
[2025-04-01 10:14] VITALS: BP 163/85; PULSE 70; BMI 21.9
== END 2025-04-01 10:36 | disposition home or self-care (01) ==
LOC: HO.HGS 10:03
PROVIDERS: PCP Internal Medicine; Visit Provider Surgery
DX: K43.9 Ventral hernia without obstruction or gangrene (principal)
CPT/HCPCS: 99213

== ENCOUNTER → 2025-04-01 10:02 | Outpatient (BNVA) | payer OTHER, SELFPAY | PROVIDERS: PCP Internal Medicine; Visit Provider Surgery | DX: Z09 Encounter for follow-up examination after completed treatment for conditions other than malignant neoplasm (principal); Z87.19 Personal history of other diseases of the digestive system | CPT/HCPCS: 99212 ==

== ENCOUNTER 2025-04-05 08:10 | Day surgery (SDC) | payer OTHER, SELFPAY ==
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
[2025-04-05 08:45] VITALS: BMI 21.7
[2025-04-05] MEDS: Lactated Ringers 1,000 ML 100 ML IVCONT (08:59)
[2025-04-05 09:02] VITALS: BP 147/84; PULSE 63; RESP 18; TEMP 36.8; O2SAT 98
--- NOTE | 2025-04-05 11:19 | MHC.SHP ---
Pre-Procedural Eval Section A - 24 Hr Update-Section A only Date of Service: 04/05/25 The patient is an INPATIENT: No Changes since office visit: No Cold of Flu in the past 2 weeks, No New Medical Problems, No Changes in Medication and No Patient answered all questions The patient has been examined within 24 hours of the surgical procedure. The History & Physical has been completed within 30 days and I have reviewed it.: Yes Section B - Complete if H&P > 30 days Chief Complaint: Ventral hernia without obstruction or gangrene Allergies: Allergies Allergy/AdvReac Type Severity Reaction Status Date / Time No Known Allergies Allergy Verified 04/05/25 09:03 Plan I have reviewed the history and physical and performed a pertinent physical examination on my patient. No changes have occurred unless specified. Time Spent With Patient Time: Total time managing care of this patient today ____ minutes.
--- NOTE | 2025-04-05 12:05 | W.PM.OPN ---
Operative Note Operative Note Date of Service: 04/05/25 Narrative: Preop diagnosis: Epigastric hernia, incisional Postop diagnosis: The same Procedure: Repair of epigastric incisional hernia, no mesh used Surgeon: Victoriano Sherman MD housekeeper and laundry assistant: LUCIA Keys The patient is a 59-year-old male with note of a reducible mass in the epigastric area. This appears to be from his old port site incision from a previous colon resection. He understood the technique of the planned procedure as well as the risks, benefits, and alternatives. He was brought to the operating room. He was placed supine under general anesthesia via laryngeal mask airway. The abdomen was prepped and draped in the usual sterile fashion. A surgical time-out was done. The patient received cefazolin 2 g IV preoperatively I infiltrated the planned line of incision with lidocaine 1%. I made a short longitudinal incision along the old I had the incision with a blade 15. This carried down through the full-thickness of the skin and subcutaneous fat until I was able to visualize the fascia. I gently dissected subcutaneous fat with Metzenbaum scissors until was able to visualize hernia contents. This appeared to be omentum. I gently dissected the hernia contents off of the rest of the fascial layer with Metzenbaum scissors sharply until I was able to completely reduce this through the defect. The fascial defect measured about a 9 mm in diameter. I therefore decided against using a mesh. I closed the fascial defect with a [id number] Maxon 1 stitch The subcutaneous layer was reapposed with Polysorb 3-0 simple interrupted sutures. Skin closure was achieved with Polysorb 4-0 subcuticular running sutures. The area was infiltrated with Marcaine 0.5% for postop analgesia. Dressings were applied and the procedure was completed The patient tolerated the procedure well. There were no immediate complications. Initial and final counts of sponges and instruments were correct. Estimated blood loss was less than 10 cc The patient was extubated without difficulty and transferred to the recovery room with stable vital signs.
[2025-04-05 12:15] VITALS: BP 127/79; PULSE 68; RESP 18; TEMP 36.4; O2SAT 99
[2025-04-05 12:20] VITALS: BP 145/77; PULSE 48; RESP 12; O2SAT 100
[2025-04-05 12:25] VITALS: BP 141/77; PULSE 50; RESP 11; O2SAT 99
[2025-04-05 12:30] VITALS: BP 117/56; PULSE 53; RESP 17; O2SAT 98
[2025-04-05 12:45] VITALS: BP 155/78; PULSE 53; RESP 17; TEMP 36.8; O2SAT 99
--- NOTE | 2025-04-05 12:53 | PC.NURSE ---
Patient was re-assured multiple times in short stay surgery that he arrived at the time that he was asked to, but the delay was due to a prior patient that took longer then booked. Patient was given warm blankets, adjusted positions in bed, voided etc. Voiced his unhappiness of waiting a few times but always reassured and kept updated. Patient using his phone while waiting.
== END 2025-04-05 12:53 | disposition home or self-care (01) ==
PROVIDERS: PCP Internal Medicine; Visit Provider Surgery
PROC: (CPT 49591; principal; 2025-04-05 10:40)
DX: K43.9 Ventral hernia without obstruction or gangrene (principal); K21.9 Gastro-esophageal reflux disease without esophagitis; R19.4 Change in bowel habit; Z87.19 Personal history of other diseases of the digestive system; F41.9 Anxiety disorder, unspecified; Z90.49 Acquired absence of other specified parts of digestive tract; Z79.899 Other long term (current) drug therapy; Z98.890 Other specified postprocedural states; F17.210 Nicotine dependence, cigarettes, uncomplicated; F12.90 Cannabis use, unspecified, uncomplicated; Z56.0 Unemployment, unspecified
CPT/HCPCS: 49591; J0690; J1885; J2003; J2250; J2704; J2795; J3010

== ENCOUNTER → 2025-04-05 08:10 | Outpatient (BNV) | payer OTHER, SELFPAY | PROVIDERS: PCP Internal Medicine; Visit Provider Surgery | DX: K43.9 Ventral hernia without obstruction or gangrene (principal) | CPT/HCPCS: 49591 ==

== ENCOUNTER 2025-04-16 13:01 | Outpatient (AMB) | payer OTHER, SELFPAY ==
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
[2025-04-16 13:08] VITALS: BP 126/74; PULSE 72; RESP 16; BMI 21.8
--- OUTSIDE RECORDS SUMMARY | 2025-04-16 14:05 | XMS_ITS | Patient Health Record ---
Author Organization [facility] Address [address] [place] [address] Care Team Providers Care Research Asst Name Role Phone JAMI ESPINO Primary Care Provider Wes Llamas [phone] Allergies Allergen (clinical drug ingredient) Drug/Non Drug Allergy documented on EMR Reaction Allergy Type Onset Date Status codeine Codeine hives/swollen in throat Drug Allergy Active Penicillin Unknown Drug Allergy Active Reason For Referral No Information Social History Tobacco Use: Social History Observation Description Date Details (start date - stop date) Current Smoker NA - NA Social History Drugs/Alcohol: Social Info Question Answer Notes Alcohol Screen Did you have a drink containing alcohol in the past year? Yes How often did you have a drink containing alcohol in the past year? 4 or more times a week (4 points) How many drinks did you have on a typical day when you were drinking in the past year? 3 or 4 drinks (1 point) How often did you have 6 or more drinks on one occasion in the past year? Never (0 point) Points 5 Interpretation Positive Tobacco Use: Social Info Question Answer Notes Tobacco Use/Smoking Patient is a current smoker How often do you smoke cigarettes? every day How many cigarettes a day do you smoke? 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 Section Notes: Smoker 1/2 ppd, 1 drink per day Problems Problem Type SNOMED Code ICD Code Onset Dates Problem Status W/U Status Risk Notes Problem Colon cancer screening (011959460) Colon cancer screening (Z12.11) Active confirmed Problem Diverticular disease of colon (158033683) Diverticulosis of large intestine without perforation or abscess without bleeding (K57.30) Active confirmed Problem Perforated diverticulum of large intestine (732748606) Diverticulitis of large intestine with abscess without bleeding (K57.20) Active confirmed Problem Diarrhea of presumed infectious origin (04592460) Diarrhea of presumed infectious origin (R19.7) Active confirmed Plan Of Treatment Pending Test Test Name Order Date STOOL WBC 07/14/2023 C DIFFICILE RFLX PCR 07/14/2023 Pathology 10/03/2023 GI PANEL 07/14/2023 Future Test Test Name Order Date COLONOSCOPY 07/07/2023 Insurance Providers Payer Name Payer Address Payer Phone Subscriber Number Group Number Insured Name Patient Relationship to Insured Coverage Start Date Coverage End Date [facility] [address] [address] [place], [place] [id number] FERMIN CHAPA Self - patient is the insured Medical (General) History Medical History History ICD Code Kidney stones Negative colonoscopy in 2009 with me Denies AR,DM,CVA,Lung disease,renal dise ase Sigmoid diverticulitis in [facility] 2023 with associated complication of [...]
== END 2025-04-16 13:19 | disposition home or self-care (01) ==
LOC: HO.HGS 13:01
PROVIDERS: Visit Provider Surgery
DX: K43.9 Ventral hernia without obstruction or gangrene (principal)
CPT/HCPCS: 99213

== ENCOUNTER → 2025-04-16 13:01 | Outpatient (BNVA) | payer OTHER, SELFPAY | PROVIDERS: Visit Provider Surgery | DX: Z48.815 Encounter for surgical aftercare following surgery on the digestive system (principal); Z98.890 Other specified postprocedural states; Z71.41 Alcohol abuse counseling and surveillance of alcoholic | CPT/HCPCS: 99212 ==